=== PATIENT | female | born 1955 | race African-American/Black ===

== ENCOUNTER 2016-06-12 20:54 | Inpatient (IN) ==
[2016-06-12] MEDS ORDERED: *HR* FentaNYL (PF) 100 MCG/2 ML VIAL IVP ONE (21:16)
--- NOTE | 2016-06-12 21:25 | Emergency Department Note ---
Disposition Clinical Impression: Hyperglycemia, Acute kidney injury, Right leg numbness, Right facial numbness, Elevated troponin Chest pain Qualifiers: Chest pain type: precordial pain Qualified Code(s): R07.2 - Precordial pain Disposition: Admitted As Inpatient Condition: Fair General Adult HPI - General Chief complaint: ED Shortness of Breath/Dyspnea Stated complaint: cough chest pain Time Seen by Provider: 06/12/16 21:00 Source: patient Mode of arrival: wheelchair Limitations: no limitations Nursing Notes Reviewed: Yes Vital Signs Reviewed: Yes - History of Present Illness HPI Narrative: 60-year-old female history of hypertension, chronic kidney disease who presents to the ER with multiple complaints of chest pain, shortness of breath, right facial numbness, right lower extremity numbness. Patient reports that she has had the symptoms for the last 2 weeks in duration. She states that she has a sharp chest pain that radiates into her back. She has felt short of breath during the 2 weeks since then. No fevers or coughs at home. No sputum production. She also reports 2 weeks ago that her right face started to feel numb as well as her right foot. Patient was not seen by any hospital at that time. Patient reports that she needs something for pain and that she is allergic to most things. No other complaints. Pt Subjective Complaint: Cough, chest pain, numbness Onset (ago): week(s) (2) Location: chest Radiation: back Pain Severity: severe Pain Scale: 8 Quality: stabbing Consistency: constant Improves with: nothing Worsens with: other (Palpation) Associated symptoms: Reports: chest pain, shortness of breath. Denies: cough, fever/chills, nausea/vomiting Treatments Prior to Arrival: none - Related Data Home Medications Medication Instructions Recorded Confirmed Ibuprofen [Ibuprofen] 800 mg PO TID PRN 06/12/16 06/12/16 Lisinopril [Lisinopril] 40 mg PO BID 06/12/16 06/12/16 NIFEdipine [Nifedipine ER] 60 mg PO DAILY 06/12/16 06/12/16 Zolpidem [Ambien] 10 mg PO HS 06/12/16 06/12/16 Allergies Allergy/AdvReac Type Severity Reaction Status Date / Time codeine AdvReac Itching Verified 06/12/16 20:55 Oxycodone [From Percocet] AdvReac Itching Verified 06/12/16 20:55 propoxyphene [From Darvon] AdvReac Itching Verified 06/12/16 20:55 All systems ED: reviewed and negative except as stated. Constitutional: Denies: fever Cardiovascular: Reports: chest pain Respiratory: Reports: dyspnea. Denies: cough, wheezes Gastrointestinal: Denies: abdominal pain, nausea, vomiting, diarrhea Musculoskeletal: Reports: back pain Neurological: Reports: weakness, numbness. Denies: headache Past Medical History - Past Medical History Attestation: Yes The following information was validated with the patient. Source: patient Medical history: Reports: asthma, COPD, hypertension, kidney stones, other Surgical history: Reports: non-contributory Psychiatric history: Reports: no psych history - Social History Smoking Status: Current every day smoker Smokeless Tobacco Status: No Alcohol use: Reports: none Drug use: Reports: marijuana Physical Exam - General Limitations: no limitations General appearance: alert, in no apparent distress - Head Head exam: atraumatic, normocephalic, normal inspection - Eye Eye exam: Present: normal appearance, EOMI - ENT ENT exam: normal exam - Neck Neck exam: Present: normal inspection - Chest Chest inspection: Present: normal inspection, symmetric chest wall rise, tenderness (This is reproducible on the sternum) - Respiratory Respiratory exam: Present: normal lung sounds bilaterally - Cardiovascular Cardiovascular exam: Present: regular rate, normal rhythm, normal heart sounds - Abdominal Exam Abdominal exam: Present: soft, Non-Tender. Absent: tenderness - Expanded Upper Extremity Exam Shoulder exam: Present: normal inspection, full ROM Arm exam: Present: normal inspection, full ROM Elbow exam: Present: normal inspection, full ROM Forearm/Wrist exam: Present: normal inspection, full ROM Hand exam: Present: normal inspection, full ROM Vascular exam: Normal: capillary refill, radial pulse - Expanded Lower Extremity Exam Hip/Pelvis exam: Present: normal inspection, full ROM Upper leg exam: Present: normal inspection, full ROM Knee exam: Present: normal inspection, full ROM Lower leg exam: Present: normal inspection, full ROM Ankle exam: Present: normal inspection, full ROM Foot/toe exam: Present: normal inspection, full ROM Neurovascular/Tendon exam: Present: sensory deficit (Patient does report paresthesias to the right lower extremity) - Neurological Exam Neurological exam: Present: alert, oriented X3, CN II-XII intact (With the exception of numbness with cranial nerve V testing on the right) - Expanded Neurological Exam Patient oriented to: Present: person, place, time Speech: Present: fluid speech Cranial nerves: EOM function (II, III, IV, ): Normal, facial sensation (V): Abnormal Right, spinal accessory function (XI): Normal, tongue deviation (XII): Normal Motor strength - LUE: 5/5 Motor strength - RUE: 5/5 Motor strength - LLE: 5/5 Motor strength - RLE: 4/5 Sensory exam upper extremity: light touch: Normal Sensory exam lower extremity: light touch: Abnormal Right Coma Scale Eye Opening: Spontaneous Coma Scale Motor Response: Obeys Commands Coma Scale Verbal Response: Oriented Coma Scale Total: 15 - Psychiatric Psychiatric exam: Present: normal affect, normal mood - Skin Skin exam: Present: warm, dry, intact, normal color Course Course Narrative: Patient seen and examined. Vital signs reviewed. We will get an EKG, chest x- ray as well as basic labs. Also obtain a CT scan of the head due to her numbness. - Reevaluation(s) Reevaluation #1: Patient's labs are coming back. Her glucose is over 900. Her creatinine is over 3 with a previous comparison from 2014. I discussed these results with her and we will start IV fluid resuscitation, get her on an insulin drip and admit her to the hospitalist service. Vital Signs Temperature 97.5 F L 06/12/16 20:56 Pulse Rate 97 06/12/16 20:56 Respiratory Rate 22 06/12/16 20:56 Blood Pressure 138/90 06/12/16 20:56 O2 Sat by Pulse Oximetry 96 06/12/16 20:56 Temperature 97.8 F 06/13/16 16:28 Pulse Rate 87 06/13/16 15:00 Respiratory Rate 24 06/13/16 15:00 Blood Pressure 119/87 06/13/16 15:00 O2 Sat by Pulse Oximetry 98 06/13/16 15:00 Oxygen Delivery Oxygen Delivery Room Air Medical Decision Making - MDM Narrative Medical decision making narrative: 60-year-old female presents to the ER due to chest pain, shortness of breath and numbness for [address] shows no acute intracranial abnormality as per radiology read. EKG is sinus rhythm. Patient's glucose is over 900 here with an acute kidney injury with a creatinine of 3. She is not acidotic. Patient given 2 L normal saline here as well as started on an insulin infusion. Patient admitted to the hospital service for further management. - Lab Data Lab results reviewed: Yes I reviewed the patient's lab results. Result diagrams: 06/13/16 02:16 06/13/16 01:58 Lab Results 06/12/16 06/12/16 06/12/16 Range/Units 21:43 21:43 21:43 WBC 19.2 H (4.3-11.1) K/mcL RBC 4.91 (3.82-4.97) M/mcL Hgb 15.1 (11.5-15.4) g/dL Hct 43.6 (35.3-44.9) % MCV 88.8 (83.0-100.0) fL MCH 30.8 (28.0-33.3) pg MCHC 34.6 (31.6-35.5) g/dL RDW 12.9 (11.5-14.5) % Plt Count 271 (140-400) K/mcL MPV 12.6 H (9.4-12.4) fL Immature Gran % 0.7 (0-4) % Seg Neutrophils % 80.6 % Lymphocytes % 10.9 % Monocytes % 7.4 % Eosinophils % 0.1 % Basophils % 0.3 % Neutrophils # 15.4 H (1.6-8.9) K/mcL Lymphocytes # 2.1 (0.6-4.6) K/mcL Monocytes # 1.4 H (0.0-1.3) K/mcL Eosinophils # 0.0 (0.0-0.6) K/mcL Basophils # 0.1 (0.0-0.2) K/mcL VBG pH (7.32-7.42) pH Units VBG pCO2 (41-51) mmHg VBG pO2 (25-40) mmHg VBG HCO3 (21-27) mEq/L Sodium 121 L (136-145) mEq/L Potassium 4.6 H (3.5-4.5) mEq/L Chloride 82 L (98-109) mEq/L Carbon Dioxide 22 (19-29) mEq/L BUN 46 H (7-20) mg/dL Creatinine 3.11 H (0.57-1.11) mg/dL Est GFR ( Amer) 18 L (> 60) Est GFR (Non-Af Amer) 15 L (> 60) BUN/Creatinine Ratio 15 (6-26) Glucose 942 H* (70-99) mg/dL POC Glucose (58-89) Est Mean Plasma Glucose mg/dl Hemoglobin A1c ( - 5.6) % Calculated Osmolality 311 H (280-300) Calcium 10.5 (8.6-10.8) mg/dL Troponin I 0.04 H* (0-0.03) ng/mL B-Natriuretic Peptide (0-100) pg/mL Beta-Hydroxybutyric Acd (0.02-0.27) mmol/L Urine Color (Yellow) Urine Clarity (Clear) Urine pH (5.0-8.0) pH Units Ur Specific Holstein (1.010-1.025) Urine Protein (Neg-Trace) mg/dL Urine Glucose (UA) (Normal) mg/dL Urine Ketones (Negative) mg/dL Urine Blood (Negative) Urine Nitrite (Negative) Urine Bilirubin (Negative) Urine Urobilinogen (Normal) mg/dL Ur Leukocyte Esterase (Negative) Urine Microscopic RBC (0-3) per hpf Urine Microscopic WBC (0-3) per hpf Ur Squamous Epith Cells (None-Few) per lpf Urine Bacteria (None-Few) per hpf Hyaline Casts (None-Few) per lpf Ur Culture Indicated? (NO) 06/12/16 06/12/16 06/12/16 Range/Units 21:43 23:09 23:09 WBC (4.3-11.1) K/mcL RBC (3.82-4.97) M/mcL Hgb (11.5-15.4) g/dL Hct (35.3-44.9) % MCV (83.0-100.0) fL MCH (28.0-33.3) pg MCHC (31.6-35.5) g/dL RDW (11.5-14.5) % Plt Count (140-400) K/mcL MPV (9.4-12.4) fL Immature Gran % (0-4) % Seg Neutrophils % % Lymphocytes % % Monocytes % % Eosinophils % % Basophils % % Neutrophils # (1.6-8.9) K/mcL Lymphocytes # (0.6-4.6) K/mcL Monocytes # (0.0-1.3) K/mcL Eosinophils # (0.0-0.6) K/mcL Basophils # (0.0-0.2) K/mcL VBG pH 7.38 (7.32-7.42) pH Units VBG pCO2 37 L (41-51) mmHg VBG pO2 82 H (25-40) mmHg VBG HCO3 21.9 (21-27) mEq/L Sodium (136-145) mEq/L Potassium (3.5-4.5) mEq/L Chloride (98-109) mEq/L Carbon Dioxide (19-29) mEq/L BUN (7-20) mg/dL Creatinine (0.57-1.11) mg/dL Est GFR ( Amer) (> 60) Est GFR (Non-Af Amer) (> 60) BUN/Creatinine Ratio (6-26) Glucose (70-99) mg/dL POC Glucose (58-89) Est Mean Plasma Glucose mg/dl Hemoglobin A1c ( - 5.6) % Calculated Osmolality (280-300) Calcium (8.6-10.8) mg/dL Troponin I (0-0.03) ng/mL B-Natriuretic Peptide 26 (0-100) pg/mL Beta-Hydroxybutyric Acd > 2.00 H (0.02-0.27) mmol/L Urine Color (Yellow) Urine Clarity (Clear) Urine pH (5.0-8.0) pH Units Ur Specific Holstein (1.010-1.025) Urine Protein (Neg-Trace) mg/dL Urine Glucose (UA) (Normal) mg/dL Urine Ketones (Negative) mg/dL Urine Blood (Negative) Urine Nitrite (Negative) Urine Bilirubin (Negative) Urine Urobilinogen (Normal) mg/dL Ur Leukocyte Esterase (Negative) Urine Microscopic RBC (0-3) per hpf Urine Microscopic WBC (0-3) per hpf Ur Squamous Epith Cells (None-Few) per lpf Urine Bacteria (None-Few) per hpf Hyaline Casts (None-Few) per lpf Ur Culture Indicated? (NO) 06/12/16 06/13/16 06/13/16 Range/Units 23:09 00:08 00:22 WBC (4.3-11.1) K/mcL RBC (3.82-4.97) M/mcL Hgb (11.5-15.4) g/dL Hct (35.3-44.9) % MCV (83.0-100.0) fL MCH (28.0-33.3) pg MCHC (31.6-35.5) g/dL RDW (11.5-14.5) % Plt Count (140-400) K/mcL MPV (9.4-12.4) fL Immature Gran % (0-4) % Seg Neutrophils % % Lymphocytes % % Monocytes % % Eosinophils % % Basophils % % Neutrophils # (1.6-8.9) K/mcL Lymphocytes # (0.6-4.6) K/mcL Monocytes # (0.0-1.3) K/mcL Eosinophils # (0.0-0.6) K/mcL Basophils # (0.0-0.2) K/mcL VBG pH (7.32-7.42) pH Units VBG pCO2 (41-51) mmHg VBG pO2 (25-40) mmHg VBG HCO3 (21-27) mEq/L Sodium (136-145) mEq/L Potassium (3.5-4.5) mEq/L Chloride (98-109) mEq/L Carbon Dioxide (19-29) mEq/L BUN (7-20) mg/dL Creatinine (0.57-1.11) mg/dL Est GFR ( Amer) (> 60) Est GFR (Non-Af Amer) (> 60) BUN/Creatinine Ratio (6-26) Glucose (70-99) mg/dL POC Glucose > 600 H* > 600 H* (58-89) Est Mean Plasma Glucose > 355 mg/dl Hemoglobin A1c >= 14.1 H ( - 5.6) % Calculated Osmolality (280-300) Calcium (8.6-10.8) mg/dL Troponin I (0-0.03) ng/mL B-Natriuretic Peptide (0-100) pg/mL Beta-Hydroxybutyric Acd (0.02-0.27) mmol/L Urine Color (Yellow) Urine Clarity (Clear) Urine pH (5.0-8.0) pH Units Ur Specific [place]stein (1.010-1.025) Urine Protein (Neg-Trace) mg/dL Urine Glucose (UA) (Normal) mg/dL Urine Ketones (Negative) mg/dL Urine Blood (Negative) Urine Nitrite (Negative) Urine Bilirubin (Negative) Urine Urobilinogen (Normal) mg/dL Ur Leukocyte Esterase (Negative) Urine Microscopic RBC (0-3) per hpf Urine Microscopic WBC (0-3) per hpf Ur Squamous Epith Cells (None-Few) per lpf Urine Bacteria (None-Few) per hpf Hyaline Casts (None-Few) per lpf Ur Culture Indicated? (NO) 06/13/16 Range/Units 00:53 WBC (4.3-11.1) K/mcL RBC (3.82-4.97) M/mcL Hgb (11.5-15.4) g/dL Hct (35.3-44.9) % MCV (83.0-100.0) fL MCH (28.0-33.3) pg MCHC (31.6-35.5) g/dL RDW (11.5-14.5) % Plt Count (140-400) K/mcL MPV (9.4-12.4) fL Immature Gran % (0-4) % Seg Neutrophils % % Lymphocytes % % Monocytes % % Eosinophils % % Basophils % % Neutrophils # (1.6-8.9) K/mcL Lymphocytes # (0.6-4.6) K/mcL Monocytes # (0.0-1.3) K/mcL Eosinophils # (0.0-0.6) K/mcL Basophils # (0.0-0.2) K/mcL VBG pH (7.32-7.42) pH Units VBG pCO2 (41-51) mmHg VBG pO2 (25-40) mmHg VBG HCO3 (21-27) mEq/L Sodium (136-145) mEq/L Potassium (3.5-4.5) mEq/L Chloride (98-109) mEq/L Carbon Dioxide (19-29) mEq/L BUN (7-20) mg/dL Creatinine (0.57-1.11) mg/dL Est GFR ( Amer) (> 60) Est GFR (Non-Af Amer) (> 60) BUN/Creatinine Ratio (6-26) Glucose (70-99) mg/dL POC Glucose (58-89) Est Mean Plasma Glucose mg/dl Hemoglobin A1c ( - 5.6) % Calculated Osmolality (280-300) Calcium (8.6-10.8) mg/dL Troponin I (0-0.03) ng/mL B-Natriuretic Peptide (0-100) pg/mL Beta-Hydroxybutyric Acd (0.02-0.27) mmol/L Urine Color Yellow (Yellow) Urine Clarity Clear (Clear) Urine pH 6.0 (5.0-8.0) pH Units Ur Specific Holstein 1.029 H (1.010-1.025) Urine Protein Negative (Neg-Trace) mg/dL Urine Glucose (UA) >=1000 H (Normal) mg/dL Urine Ketones Trace H (Negative) mg/dL Urine Blood Trace H (Negative) Urine Nitrite Negative (Negative) Urine Bilirubin Negative (Negative) Urine Urobilinogen Normal (Normal) mg/dL Ur Leukocyte Esterase Negative (Negative) Urine Microscopic RBC 0-3 (0-3) per hpf Urine Microscopic WBC 0-3 (0-3) per hpf Ur Squamous Epith Cells Many H (None-Few) per lpf Urine Bacteria None Seen (None-Few) per hpf Hyaline Casts None Seen (None-Few) per lpf Ur Culture Indicated? NO (NO) - Radiology Data Radiology results reviewed: Yes I reviewed the patient's radiology results. Chest X-Ray 06/12/16 21:16 IMPRESSION: No acute cardiopulmonary disease. D/ / Jimmie Rae MD / Jimmie Rae MD Interpreting Provider: Jimmie Rae MD Head CT 06/12/16 21:16 IMPRESSION: No acute intracranial abnormality. D/ / Rasheed Uribe MD / Rasheed Uribe MD Interpreting Provider: Rasheed Uribe MD - EKG Data EKG #1 EKG attestation: Yes I reviewed and interpreted this EKG. EKG results narrative: EKG is sinus rhythm with a rate of 99 bpm. Normal axis. MS interval 366. QRS duration [address] elevations or depressions. No acute ischemic findings. S.B.A.R. - S.Amira.Chelo. Situation: Demographics, MOA Background: Presenting Complaint, Relevant PMH, Meds, & Allergies Assessment: Vital Signs, Course and respsone to treatment, Exam Concerns, Patient/Family Expectation, Pertinant Lab Results, Outstanding Labs Recommendation: Barrier(s) to disposition, Recommendation based on pending studies, treatments, or consults S.B.A.R. Report Given to: Dr. Gavin Attestation Statement - Attestation Attestation: I examined this patient and my medical decision-making was reviewed with the MEDICAL CARE ADMINISTRATOR/PA/Advanced Practice Nurse/Resident Physician. I agree with the documented findings, disposition and treatment plan as described except to the extent set forth below.
[2016-06-12 22:05] LABS: Basophils # 0.1 K/mcL (0.0-0.2); Basophils % 0.3 %; Eosinophils % 0.1 %; Hematocrit 43.6 % (35.3-44.9); Hemoglobin 15.1 g/dL (11.5-15.4); Immature Granulocytes % 0.7 % (0-4); Lymphocytes # 2.1 K/mcL (0.6-4.6); Lymphocytes % 10.9 %; Mean Corpuscular HGB Conc 34.6 g/dL (31.6-35.5); Mean Corpuscular Hemoglobin 30.8 pg (28.0-33.3); Mean Corpuscular Volume 88.8 fL (83.0-100.0); Mean Platelet Volume 12.6 fL (9.4-12.4); Monocytes # 1.4 K/mcL (0.0-1.3); Monocytes % 7.4 %; Neutrophils # 15.4 K/mcL (1.6-8.9); Platelet Count 271 K/mcL (140-400); Red Blood Count 4.91 M/mcL (3.82-4.97); Red Cell Distribution Width 12.9 % (11.5-14.5); Segmented Neutrophils % 80.6 %
[2016-06-12 22:18] LABS: Calcium 10.5 mg/dL (8.6-10.8); Potassium 4.6 mEq/L (3.5-4.5)
[2016-06-12] MEDS ORDERED: 0.9 % Sodium Chloride 1,000 ML IVC ONE ×2 (22:40→22:47)
[2016-06-12] MEDS ORDERED: *HR* Dextrose 50 % in Water (Syg) 50 ML SYRINGE IVP PRN (22:41)
[2016-06-12 23:18] LABS: VBG HCO3 21.9 mEq/L (21-27); VBG PH 7.38 pH Units (7.32-7.42)
[2016-06-12] MEDS: Insulin Human Regular 100 UNIT in 0.9 % Sodium Chloride 100 ML IVC SCH (23:29)
[2016-06-13 01:01] LABS: Bilirubin,Urine Negative (Negative); Blood,Urine Trace (Negative); Clarity,Urine Clear (Clear); Color,Urine Yellow (Yellow); Glucose,Urine (UA) >=1000 mg/dL (Normal); Ketones,Urine Trace mg/dL (Negative); Leukocyte Esterase,Urine Negative (Negative); Nitrite,Urine Negative (Negative); Protein,Urine Negative (Neg-Trace); Specific Gravity,Urine 1.029 (1.010-1.025); Urobilinogen,Urine Normal (Normal)
[2016-06-13 01:04] LABS: Bacteria,Urine None Seen per hpf (None-Few); Hyaline Casts,Urine None Seen per lpf (None-Few); RBC,Urine 0-3 per hpf (0-3); Squamous Epithelial Cell,Urine Many per lpf (None-Few); WBC,Urine 0-3 per hpf (0-3)
[2016-06-13 01:28] LABS: Estimated Average Glucose > 355 mg/dl; Hemoglobin A1C >= 14.1 %
[2016-06-13] MEDS: 0.9 % Sodium Chloride 1,000 ML IVC SCH ×3 (01:30→09:55)
[2016-06-13] MEDS ORDERED: *HR* Dextrose 50 % in Water (Syg) 50 ML SYRINGE IVP PRN ×2 (01:37→11:26)
[2016-06-13] MEDS ORDERED: D5% in 0.45% NACL w KCl 20 MEQ/1,000 ML MLS IVC PRN (01:37)
[2016-06-13] MEDS ORDERED: Insulin LISPRO 300 UNITS/3 ML VIAL SQ PRN (01:37)
[2016-06-13] MEDS ORDERED: Naloxone 0.4 MG/ML INJ IVP PRN (01:37)
[2016-06-13] MEDS ORDERED: Insulin Human Regular 100 UNIT in 0.9 % Sodium Chloride 100 ML IVC SCH (01:45)
[2016-06-13] MEDS: Ondansetron 4 MG/2 ML VIAL IVP PRN ×2 (02:26→08:21)
[2016-06-13 04:43] LABS: Basophils # 0.1 K/mcL (0.0-0.2); Basophils % 0.4 %; Eosinophils # 0.1 K/mcL (0.0-0.6); Eosinophils % 0.3 %; Hematocrit 43.2 % (35.3-44.9); Hemoglobin 15.1 g/dL (11.5-15.4); Immature Granulocytes % 0.6 % (0-4); Immature Platelets 18.2 % (1.1-6.1); Lymphocytes # 3.3 K/mcL (0.6-4.6); Lymphocytes % 17.5 %; Mean Corpuscular Hemoglobin 31.1 pg (28.0-33.3); Mean Corpuscular Volume 89.1 fL (83.0-100.0); Mean Platelet Volume 12.2 fL (9.4-12.4); Monocytes # 0.9 K/mcL (0.0-1.3); Monocytes % 4.8 %; Neutrophils # 14.6 K/mcL (1.6-8.9); Platelet Count 240 K/mcL (140-400); Red Blood Count 4.85 M/mcL (3.82-4.97); Red Cell Distribution Width 12.6 % (11.5-14.5); Segmented Neutrophils % 76.4 %
[2016-06-13 04:46] LABS: Albumin 3.7 g/dL (3.5-5.0); Albumin/Globulin Ratio 0.8 (1.1-2.2); Bilirubin,Total 0.6 mg/dL (0.2-1.2); Calcium 10.6 mg/dL (8.6-10.8); Globulin 4.4 g/dL (2.4-3.5); Magnesium 2.3 mg/dL (1.6-2.6); Total Protein 8.1 g/dL (6.0-8.3)
[2016-06-13 05:32] LABS: Platelet Estimate Normal (Normal)
[2016-06-13] MEDS ORDERED: *HR* FentaNYL (PF) 100 MCG/2 ML VIAL IVP ONE (05:34)
[2016-06-13] MEDS: *HR* FentaNYL (PF) 100 MCG/2 ML VIAL IVP PRN ×2 (06:19→11:39)
[2016-06-13 06:57] LABS: Amylase 41 Units/L (25-125); Lipase 43 Units/L (8-78)
[2016-06-13 07:00] LABS: ABG Base Excess -1.8 mEq/L (-2.0 to 3.0); ABG HCO3 23.1 mEQ/L (21-27); ABG Oxygen Saturation 97 % (95-98); ABG PCO2 39 mmHg (35-45); ABG PO2 92 mmHg (85-104); ABG TCO2 24.3 mEq/L (20-26); Blood Gas FiO2 28 %; Blood Gas Liter Flow 2 L/MIN
[2016-06-13 07:01] LABS: ABG PH 7.38 pH Units (7.32-7.45)
[2016-06-13 08:00] LABS: 2009 H1N1 PCR NOT DETECTED (Not Detect); Influenza A PCR Negative (Negative); Influenza B PCR Negative (Negative)
[2016-06-13] MEDS: Nicotine 21 MG PATCH.TD24 TD SCH (08:10)
[2016-06-13] MEDS: *HR* Heparin 5,000 UNIT/ML VIAL SQ SCH ×3 (08:14→23:56)
[2016-06-13] MEDS: Pantoprazole 40 MG VIAL IVP SCH (08:15)
[2016-06-13] MEDS: Insulin Human Regular 100 UNIT in 0.9 % Sodium Chloride 100 ML IVC SCH (08:32)
--- NOTE | 2016-06-13 10:28 | Internal Med Progress Note ---
Date of Encounter: 06/13/16 Time of Encounter: 09:15 - Assessment and plan (1) Hyperglycemic crisis in diabetes mellitus Current Visit: Yes Status: Acute Assessment and plan: HHS with preenting glucose >900 with neurologic symptoms, CVA mimick patient has no neurologic deficits on examAnd reports improvement ABG was unremarkable Head CT /CXR unremarkable It is possible patient is non-compliant with medications, or she is a newly diagnosed diabetic A1C >14 Will give lemevir and stop insulin drip after an hr Lispro ACHS sliding scale Continue to monitor FS ADA diet bingo attendant to see patient (2) COPD (chronic obstructive pulmonary disease) Current Visit: Yes Status: Chronic Assessment and plan: Not in exacerbation Duonebs prn Qualifiers: COPD type: unspecified COPD Qualified Code(s): J44.9 - Chronic obstructive pulmonary disease, unspecified (3) Acute on chronic renal failure Current Visit: Yes Status: Acute Assessment and plan: Multifactorial, dehydration from HHS, patient on Lisinopril and NSAIDs at home with a history of CKD USS kidneys has been ordered, will follow Continue IVF hydration Avoid nephrotoxins (4) Chest pain Current Visit: Yes Status: Acute Assessment and plan: non-specific EKG is non-ischemic Slight troponin elevation, may be from LONNIE on CKD Continue to monitor closely Follow ECHO Qualifiers: Chest pain type: precordial pain Qualified Code(s): R07.2 - Precordial pain (5) Elevated troponin Current Visit: Yes Status: Acute Assessment and plan: As above (6) Hypertension Current Visit: Yes Status: Chronic Assessment and plan: Controlled Will resume home meds -CCB, prn Qualifiers: Hypertension type: essential hypertension Qualified Code(s): I10 - Essential (primary) hypertension (7) Leukocytosis Current Visit: Yes Status: Acute Assessment and plan: Possibly from dehydration and stress There is no obvious source of infection, patient is afebrile Will continue to monitor No indication for antibiotics at this time Qualifiers: Leukocytosis type: unspecified Qualified Code(s): D72.829 - Elevated white blood cell count, unspecified (8) Tobacco abuse Current Visit: Yes Status: Chronic Assessment and plan: Counselling done for cessation NRT - Subjective Interval history: 60-year-old female on admission for HHS and LONNIE on CKD She has a PMH of Asthma, CKD, ? stage, Tobacco abuse She presented to the ER with complaints of chest pain shortness of breath, right facial numbness and right lower extremity numbness. Work up in the ER revealed leukocytosis A1c greater than 14 leukocytosis with left shift and daily once daily individual with normal pH and glucose of 952 and adynamic troponin elevation. Lipase, amylase, urinalysis, unremarkable. Lipid panel reveals triglyceridemia. CT was unremarkable. Chest x-ray no acute processes. She is seen at bedside, able to communicate, in no obvious distress FS have been between 160-180, one done at bedside during review was 120 - Constitutional Vitals: Temp Pulse Resp BP Pulse Ox 98.4 F 69 14 126/62 99 06/13/16 07:47 06/13/16 09:00 06/13/16 09:00 06/13/16 09:00 06/13/16 09:00 General appearance: Present: A&O X 3, pleasant, no acute distress - Head Head exam: Present: atraumatic, normocephalic - Eye Eye exam: Present: PERRL, conjuntiva pink, sclera anicteric Pupils: Present: PERRL - Neck Neck exam general surgery: Present: supple, trachea midline. Absent: lymphadenopathy - Respiratory Respiratory exam: Present: CTAB. Absent: accessory muscle use, rales, rhonchi, wheezes - Cardiovascular Cardiovascular exam: Present: RRR, +S1, +S2. Absent: diastolic murmur, gallop, rubs, systolic murmur - GI/Abdominal GI/Abdominal exam: Present: normal bowel sounds, soft, no peritoneal signs. Absent: distended, tenderness - Extremities Exam Extremities exam: Present: warm, radial pulses palpable and symetrical. Absent : calf tenderness, cyanotic, pedal edema - Neurological Exam Neurological exam: Present: CN II-XII intact, oriented X3, no focal deficits. Absent: pronater drift, facial droop, speech deficit - Skin Skin exam: Present: dry, intact Internal Medicine: Result - Labs CBC & Chem 7: 06/13/16 02:16 06/13/16 01:58 Labs: Short CBC 06/13/16 Range/Units 02:16 WBC 19.1 H (4.3-11.1) K/mcL Hgb 15.1 (11.5-15.4) g/dL Hct 43.2 (35.3-44.9) % Plt Count 240 (140-400) K/mcL Neutrophils # 14.6 H (1.6-8.9) K/mcL BMP 06/13/16 01:58 Sodium 130 L D Potassium 4.0 Chloride 96 L Carbon Dioxide 17 L BUN 45 H Creatinine 2.73 H Glucose 425 H Calcium 10.6 Cardiac Enzymes 06/13/16 06/13/16 Range/Units 01:58 09:45 Troponin I 0.05 H* 0.05 H* (0-0.03) ng/mL Liver Function 06/13/16 Range/Units 01:58 Total Bilirubin 0.6 (0.2-1.2) mg/dL AST 18 (5-34) Units/L ALT 28 (0-55) Units/L Alkaline Phosphatase 141 H (38-126) Units/L Albumin 3.7 (3.5-5.0) g/dL - ABG Interpretation ABG results: ABG ABG pH 7.38 pH Units (7.32-7.45) 06/13/16 02:39 ABG pCO2 39 mmHg (35-45) 06/13/16 02:39 ABG pO2 92 mmHg (85-104) 06/13/16 02:39 ABG O2 Saturation 97 % (95-98) 06/13/16 02:39 Consult Discharge Plan - Plan Referrals: NO,PCP [Primary Care Provider] -
[2016-06-13] MEDS ORDERED: Insulin DETEMIR 100 UNIT/ML X5UNITS SQ ONE (10:30)
[2016-06-13] MEDS ORDERED: D5% in Water 1,000 ML IV PRN (11:26)
[2016-06-13] MEDS ORDERED: Dextrose Gel 15 GM PO PRN ×2 (11:26)
[2016-06-13] MEDS: Insulin LISPRO 300 UNITS/3 ML VIAL SQ SCH ×3 (11:55→21:36)
--- NOTE | 2016-06-13 12:16 | Electrocardiograph Report ---
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
--- NOTE | 2016-06-13 14:20 | Electrocardiograph Report ---
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
[2016-06-13] MEDS ORDERED: *HR* OxyCODONE Immed Rel 5 MG TABLET PO PRN (15:19)
[2016-06-13] MEDS ORDERED: Acetaminophen 325 MG TABLET PO PRN (15:20)
[2016-06-13] MEDS ORDERED: GI Cocktail 40 ML EACH PO ONE (15:21)
[2016-06-13] MEDS ORDERED: Insulin DETEMIR 100 UNIT/ML X5UNITS SQ SCH (21:00)
[2016-06-13] MEDS: traMADol 50 MG TABLET PO PRN (22:16)
[2016-06-14] MEDS: Ondansetron 4 MG/2 ML VIAL IVP PRN (04:16)
[2016-06-14 04:32] LABS: Basophils # 0.1 K/mcL (0.0-0.2); Basophils % 0.4 %; Eosinophils # 0.1 K/mcL (0.0-0.6); Eosinophils % 0.6 %; Hematocrit 41.3 % (35.3-44.9); Hemoglobin 14.3 g/dL (11.5-15.4); Immature Granulocytes % 0.4 % (0-4); Lymphocytes # 3.4 K/mcL (0.6-4.6); Lymphocytes % 20.2 %; Mean Corpuscular HGB Conc 34.6 g/dL (31.6-35.5); Mean Corpuscular Hemoglobin 31.6 pg (28.0-33.3); Mean Corpuscular Volume 91.4 fL (83.0-100.0); Mean Platelet Volume 12.7 fL (9.4-12.4); Monocytes # 1.4 K/mcL (0.0-1.3); Monocytes % 8.5 %; Neutrophils # 11.8 K/mcL (1.6-8.9); Platelet Count 216 K/mcL (140-400); Red Blood Count 4.52 M/mcL (3.82-4.97); Red Cell Distribution Width 13.2 % (11.5-14.5); Segmented Neutrophils % 69.9 %
[2016-06-14 04:50] LABS: Calcium 9.9 mg/dL (8.6-10.8)
[2016-06-14] MEDS: *HR* Heparin 5,000 UNIT/ML VIAL SQ SCH ×2 (08:26→16:53)
[2016-06-14] MEDS: Pantoprazole 40 MG VIAL IVP SCH (08:26)
[2016-06-14] MEDS: Nicotine 21 MG PATCH.TD24 TD SCH (08:26)
[2016-06-14] MEDS ORDERED: Insulin DETEMIR 100 UNIT/ML X5UNITS SQ SCH (08:42)
[2016-06-14] MEDS: Insulin LISPRO 300 UNITS/3 ML VIAL SQ SCH ×6 (08:44→20:58)
[2016-06-14] MEDS: amLODIPine 5 MG TABLET PO SCH (10:14)
--- NOTE | 2016-06-14 10:45 | Internal Med Progress Note ---
Date of Encounter: 06/14/16 Time of Encounter: 09:55 - Assessment and plan (1) Hyperglycemic crisis in diabetes mellitus Current Visit: Yes Status: Acute Assessment and plan: [facility] with presenting glucose >900 with neurologic symptoms, CVA mimick patient no longer has neurologic deficits on exam And reports improvement ABG was unremarkable Head CT /CXR unremarkable She denies prior diagnosis of DM, she is a newly diagnosed diabetic A1C >14 Start prandial and continue basal insulin and corrective scale She is educated on her diagnosis ADA diet inclusion paraeducator to see patient (2) COPD (chronic obstructive pulmonary disease) Current Visit: Yes Status: Chronic Assessment and plan: Not in exacerbation Duonebs prn Qualifiers: COPD type: unspecified COPD Qualified Code(s): J44.9 - Chronic obstructive pulmonary disease, unspecified (3) Acute on chronic renal failure Current Visit: Yes Status: Acute Assessment and plan: Multifactorial, dehydration from [facility], patient on Lisinopril and NSAIDs at home with a history of CKD USS kidneys has been ordered, pending reports D/C IVF and encourage liberal fluid intake D/C geller catheter and ambulate patient Avoid nephrotoxins (4) Chest pain Current Visit: Yes Status: Acute Assessment and plan: non-specific EKG is non-ischemic Slight troponin elevation, may be from LONNIE on CKD ECHO done on admission reported today shows EF 60-65%, Normal LV chamber size and function, moderate LVH, mild LVDD, mild Pulmonary HTN, RVSP 43, no significant valvular dysfunction Patient is asymptomatic now Qualifiers: Chest pain type: precordial pain Qualified Code(s): R07.2 - Precordial pain (5) Elevated troponin Current Visit: Yes Status: Acute Assessment and plan: As above (6) Hypertension Current Visit: Yes Status: Chronic Assessment and plan: Now uncontrolled Start Amlodipne 10mg po daily Will add Labetalol if needed Qualifiers: Hypertension type: essential hypertension Qualified Code(s): I10 - Essential (primary) hypertension (7) Leukocytosis Current Visit: Yes Status: Acute Assessment and plan: Possibly from dehydration and stress Improving There is no obvious source of infection, patient is afebrile Will continue to monitor No indication for antibiotics at this time Qualifiers: Leukocytosis type: unspecified Qualified Code(s): D72.829 - Elevated white blood cell count, unspecified (8) Tobacco abuse Current Visit: Yes Status: Chronic Assessment and plan: Counselling done for cessation NRT - Subjective Interval history: 60-year-old female on admission for HHS and LONNIE on CKD She has a PMH of Asthma, CKD, ? stage, Tobacco abuse She presented to the ER with complaints of chest pain shortness of breath, right facial numbness and right lower extremity numbness. Work up in the ER revealed leukocytosis A1c greater than 14 leukocytosis with left shift and daily once daily individual with normal pH and glucose of 952 and adynamic troponin elevation. Lipase, amylase, urinalysis, unremarkable. Lipid panel reveals triglyceridemia. CT was unremarkable. Chest x-ray no acute processes. She has been bridged to basal and corrective dose insulin She is seen at bedside today, has no new complains Abdominal pain has improved She is educated again about her new diagnosis of DM Will adjust insulin today to target FS 140-180 - Constitutional Vitals: Temp Pulse Resp BP Pulse Ox 97.4 F L 72 13 169/91 97 06/14/16 07:51 06/14/16 08:25 06/14/16 07:51 06/14/16 07:51 06/14/16 07:51 General appearance: Present: A&O X 3, pleasant, no acute distress, obese - Head Head exam: Present: atraumatic, normocephalic - Eye Eye exam: Present: PERRL, conjuntiva pink, sclera anicteric Pupils: Present: PERRL - Neck Neck exam general surgery: Present: supple, trachea midline. Absent: lymphadenopathy - Respiratory Respiratory exam: Present: CTAB. Absent: accessory muscle use, rales, rhonchi, wheezes - Cardiovascular Cardiovascular exam: Present: RRR, +S1, +S2. Absent: diastolic murmur, gallop, rubs, systolic murmur - GI/Abdominal GI/Abdominal exam: Present: normal bowel sounds, soft, no peritoneal signs. Absent: distended, tenderness - Extremities Exam Extremities exam: Present: warm, radial pulses palpable and symetrical. Absent : calf tenderness, cyanotic, pedal edema - Neurological Exam Neurological exam: Present: CN II-XII intact, oriented X3, no focal deficits. Absent: pronater drift, facial droop, speech deficit - Skin Skin exam: Present: dry, intact Internal Medicine: Result - Labs CBC & Chem 7: 06/14/16 03:56 06/14/16 03:56 Labs: Short CBC 06/14/16 Range/Units 03:56 WBC 16.9 H (4.3-11.1) K/mcL Hgb 14.3 (11.5-15.4) g/dL Hct 41.3 (35.3-44.9) % Plt Count 216 (140-400) K/mcL Neutrophils # 11.8 H (1.6-8.9) K/mcL BMP 06/14/16 03:56 Sodium 132 L Potassium 4.0 Chloride 99 Carbon Dioxide 21 BUN 37 H Creatinine 1.82 H Glucose 319 H Calcium 9.9 - ABG Interpretation ABG results: ABG ABG pH 7.38 pH Units (7.32-7.45) 06/13/16 02:39 ABG pCO2 39 mmHg (35-45) 06/13/16 02:39 ABG pO2 92 mmHg (85-104) 06/13/16 02:39 ABG O2 Saturation 97 % (95-98) 06/13/16 02:39 - Impressions Impressions Abdomen CT 06/13/16 15:18 IMPRESSION: 1. No acute abdominal process. 2. Hepatic steatosis and bilateral adrenal hyperplasia. 3. Nonobstructing right nephrolithiasis. D/ / 06/13/2016 16:11:33 Bud Escalona MD / [email or web address] Interpreting Provider: Bud Escalona MD Consult Discharge Plan - Plan Referrals: Stefan Klein MD [Non-Partnered Physician] - 06/25/16 3:00 pm NO,PCP [Primary Care Provider] -
--- NOTE | 2016-06-14 11:15 | ECHO - Doppler Report ---
Echocardiogram Name: Vivek Cheng Date of Study: 06/13/2016 Date: 1955 Ht: 64.0 in Medical Record#: [id number] Age: 60 Wt: 231.0 lb Gender: Female BSA: 2.08 Order #: [id number] Location: [facility] Room #: 2N5 Reading Physician: Rasheed Feldman DO, LUISANA, MAX FERNANDES [employer] Tech: Yumiko Trejo Ordering Physician: Mejia Key MD Primary Physician: None Indications: Troponin elevation Impressions: LVEF 60-65%. Normal LV chamber size and function. Moderate concentric left ventricular hypertrophy. Mild left ventricular diastolic dysfunction. Normal right ventricular structure and function. Mild pulmonary hypertension. Estimated RVSP is 43 mmHg. No significant valvular dysfunction. Left Ventricular Wall Motion: Rest Echo Findings All wall segments showed normal motion. Findings: Study Quality * Technically adequate exam. ECG Findings * Normal sinus rhythm. Left Ventricle * LVEF 60-65%. * Normal LV chamber size and function. * Moderate concentric left ventricular hypertrophy. * Mild left ventricular diastolic dysfunction. Right Ventricle * Normal right ventricular structure and function. Left Atrium * Normal left atrial size. Right Atrium * Normal right atrial size. Interatrial Septum * Interatrial septum not well evaluated. Aortic Valve * Aortic valve not well visualized. * No aortic stenosis. * No aortic regurgitation. Mitral Valve * Normal mitral valve structure and function. * No mitral regurgitation. * No mitral stenosis. Tricuspid Valve * Normal tricuspid valve structure and function. * Trace tricuspid regurgitation. * Mild pulmonary hypertension. * Estimated RVSP is 43 mmHg. * Estimated RA pressure is 5 mmHg. Pulmonic Valve * Normal pulmonic valve structure and function. * No pulmonic regurgitation. Aorta * Normally sized aortic root. Pericardium * The pericardium appears normal. IVC * Normal IVC dimensions and inspiratory collapse. Pulmonary Artery * Normal visualized portions of the main pulmonary artery. History Hypertension Diabetes History of Smoking Years 20 Packs 1 09/04/2012 a Previous Echo was performed. Measurements: BP: 144/ 97 2D Normal Values RVIDd: 3.50 cm <2.7 cm IVSd: 1.60 cm 0.6 - 1.0 cm LVIDd: 3.60 cm 3.7 - 5.6 cm LVPWd: 1.60 cm 0.6 - 1.1 cm LVIDs: 1.60 cm 1.5 - 3.6 cm AO: 2.80 cm < 4.0 cm LA: 3.90 cm 2.0 - 4.0cm %FS: 55.60 cm >25 % LVOT Diam: 1.40 cm LA volume: 28 Mitral Valve Peak E:.64 m/sec Peak A:1.06 m/sec E/A Ratio:0.6 Peak E' Lat Dashawn:6.34 cm/s Peak E' Med Dashawn:4.58 cm/s E/E' Lat Ratio:10.2 E/E' Med Ratio:14.1 Tricuspid Valve TV Regurg Peak Grad: 38.00mmHg TV Regurg Peak Dashawn: 3.09m/sec Updated by Rasheed Feldman DO, FACStew, MAX FERNANDES on 06/14/2016 11:08:22 AM electronically signed on 06/14/2016 11:08:47 AM with status of Final Wall Motion Vora: 1=Normal, 2=Hypokinesis, 3=Akinesis, 4=Dyskinesis, 5=Aneurysmal, 6=Hyperkinetic, X=Not Visualized (Blank)=Missing
[2016-06-14] MEDS: traMADol 50 MG TABLET PO PRN (19:21)
[2016-06-14] MEDS: *HR* Morphine 2 MG/ML SYRINGE IVP PRN (21:06)
[2016-06-15] MEDS: *HR* Heparin 5,000 UNIT/ML VIAL SQ SCH ×2 (00:22→08:29)
[2016-06-15] MEDS: traMADol 50 MG TABLET PO PRN ×2 (00:24→08:29)
[2016-06-15 06:26] LABS: Basophils # 0.1 K/mcL (0.0-0.2); Basophils % 0.5 %; Eosinophils # 0.2 K/mcL (0.0-0.6); Eosinophils % 1.1 %; Hematocrit 40.4 % (35.3-44.9); Hemoglobin 13.8 g/dL (11.5-15.4); Immature Granulocytes % 0.4 % (0-4); Lymphocytes # 3.5 K/mcL (0.6-4.6); Lymphocytes % 23.7 %; Mean Corpuscular HGB Conc 34.2 g/dL (31.6-35.5); Mean Corpuscular Hemoglobin 31.5 pg (28.0-33.3); Mean Corpuscular Volume 92.2 fL (83.0-100.0); Mean Platelet Volume 12.8 fL (9.4-12.4); Monocytes # 1.4 K/mcL (0.0-1.3); Monocytes % 9.3 %; Neutrophils # 9.5 K/mcL (1.6-8.9); Platelet Count 210 K/mcL (140-400); Red Blood Count 4.38 M/mcL (3.82-4.97); Red Cell Distribution Width 13.1 % (11.5-14.5)
[2016-06-15 06:40] LABS: Calcium 9.6 mg/dL (8.6-10.8); Potassium 3.7 mEq/L (3.5-4.5)
[2016-06-15 07:25] VITALS: BP 146/86
[2016-06-15] MEDS: Ondansetron 4 MG/2 ML VIAL IVP PRN (08:29)
[2016-06-15] MEDS: Nicotine 21 MG PATCH.TD24 TD SCH (08:29)
[2016-06-15] MEDS: Pantoprazole 40 MG VIAL IVP SCH (08:29)
[2016-06-15] MEDS: amLODIPine 5 MG TABLET PO SCH (08:30)
[2016-06-15] MEDS: Insulin LISPRO 300 UNITS/3 ML VIAL SQ SCH ×4 (08:30→12:12)
[2016-06-15] MEDS: *HR* Morphine 2 MG/ML SYRINGE IVP PRN (08:30)
--- NOTE | 2016-06-15 09:40 | Discharge Summary ---
Date of Encounter: 06/15/16 Time of Encounter: 09:40 - Discharge Diagnosis (1) Hyperglycemic crisis in diabetes mellitus Priority: Primary Status: Acute (2) COPD (chronic obstructive pulmonary disease) Priority: Secondary Status: Chronic Qualifiers: COPD type: unspecified COPD Qualified Code(s): J44.9 - Chronic obstructive pulmonary disease, unspecified (3) Acute on chronic renal failure Priority: Primary Status: Acute (4) Chest pain Priority: Primary Status: Resolved Qualifiers: Chest pain type: precordial pain Qualified Code(s): R07.2 - Precordial pain (5) Elevated troponin Priority: Primary Status: Acute (6) Hypertension Priority: Secondary Status: Chronic Qualifiers: Hypertension type: essential hypertension Qualified Code(s): I10 - Essential (primary) hypertension (7) Leukocytosis Priority: Secondary Status: Acute Qualifiers: Leukocytosis type: unspecified Qualified Code(s): D72.829 - Elevated white blood cell count, unspecified (8) Tobacco abuse Priority: Secondary Status: Chronic - Discharge Medications Prescriptions: Amoxicillin/Clavulanate [Augmentin] 875 mg PO BIDWM #10 tablet Blood Sugar Diagnostic [Glucose Test Strip] 1 each ACHS #120 strip Insulin Glargine [Lantus] 20 unit SQ HS #2 vial Insulin LISPRO [HumaLOG] 8 units SQ TIDWM #2 vial Lancets 1 each MC ACHS #120 each Lisinopril [Zestril] 20 mg PO DAILY #30 tablet Nicotine Patch [Nicoderm] 21 mg TD DAILY #30 patch.td24 Nystatin POWDER [Nystop] 1 appl TP TID #30 gm Syring-Needl,Disp,Insul,0.3 ml [Insulin Syringe] 1 each MC QID #120 disp.syrin Home Medications: NIFEdipine [Nifedipine ER] 60 mg PO DAILY 06/12/16 [History] Zolpidem [Ambien] 10 mg PO HS 06/12/16 [History] Amoxicillin/Clavulanate [Augmentin] 875 mg PO BIDWM #10 tablet 06/15/16 [Rx] Blood Sugar Diagnostic [Glucose Test Strip] 1 each MC ACHS #120 strip 06/15/16 [ Rx] Insulin Glargine [Lantus] 20 unit SQ HS #2 vial 06/15/16 [Rx] Insulin LISPRO [HumaLOG] 8 units SQ TIDWM #2 vial 06/15/16 [Rx] Lancets 1 each MC ACHS #120 each 06/15/16 [Rx] Lisinopril [Zestril] 20 mg PO DAILY #30 tablet 06/15/16 [Rx] Nicotine Patch [Nicoderm] 21 mg TD DAILY #30 patch.td24 06/15/16 [Rx] Nystatin POWDER [Nystop] 1 appl TP TID #30 gm 06/15/16 [Rx] Syring-Needl,Disp,Insul,0.3 ml [Insulin Syringe] 1 each MC QID #120 disp.syrin 06/15/16 [Rx] Allergies/Adverse Reactions: Allergies codeine Adverse Reaction (Verified 06/12/16 20:55) Itching Oxycodone [From Percocet] Adverse Reaction (Verified 06/12/16 20:55) Itching propoxyphene [From Darvon] Adverse Reaction (Verified 06/12/16 20:55) Itching Procedures/tests Complete & Pending: Procedures Performed prior 72 hours Category Date Time Status CT abdomen wo no iv no oral [CT] Stat Cat Scan 06/13/16 15:18 Completed Date of admission: 06/13/16 01:50 Primary care physician: PCP NO Consults: 06/13/16 05:24 Consult to Diabetes Education Coordinator [CONS] Routine Comment: Discharging clinician: Matti Krause Anticipated date of discharge: 06/15/16 - Patient Status Disposition: Home, Self-Care Condition: Fair Functional capacity at discharge: independent ambulation Overall status at discharge: patient is progressing back to baseline - Discharge Instructions Follow Up With: Stefan Klein MD [Non-Partnered Physician] - 06/25/16 3:00 pm NO,PCP [Primary Care Provider] - - Diet and Activity Activity: resume usual activities as tolerated Diet: diabetic diet, low salt diet Interval History: See below Hospital course: Ms. Cheng is a 60 year old female with a past medical history of hypertension, COPD, tobacco abuse, and chronic kidney disease unknown stage. The patient was admitted on June 12. Symptoms suggestive of neurological complaints. On admission she had complained of chest pain right facial numbness and right lower extremity numbness. She did endorse polyuria and polydipsia. She denied any other complaints. Workup revealed leukocytosis, with left shift, glucose of 952, slightly elevated troponins. Lipase, amylase, urinalysis were unremarkable. Lipid panel showed triglyceridemia. Head CT was unremarkable for acute processes. Chest x-ray showed no acute processes. A1c was greater than 14. Patient's chemistry revealed a creatinine of 3.11, baseline unknown here in 2013 was 1.21. Physical exam on admission as per admitting hospitalist showed no neurologic deficits. Patient was admitted for management of hyperglycemic hyperosmolar syndrome, hyperglycemic crisis, acute kidney injury on chronic kidney disease, elevated troponins, and leukocytosis. She was started on insulin drip with rapid correction blood glucose, potassium, and sodium. She was bridged to subcutaneous insulin disease, prandial, and sliding scale. Troponins remained at 0.05, patient did not have chest pain. BNP was 26. Patient is not a known diabetic and she has a new diagnosis of uncontrolled diabetes mellitus. carcass washer was consulted and educated the patient at the bedside. Patient's LONNIE on CKD is multifactorial secondary to dehydration from HHS, medications as patient was noted to be taking 40mg of lisinopril twice a day at home, and ibuprofen [id number] for pain. Abdomen CT head shows nephrolithiasis nonobstructing, hepatic steatosis and bilateral adrenal hyperplasia. Her kidney function has improved and is almost at baseline. Patient is educated to stop using NSAIDs at home. She will follow up with her PCP for referral to nephrology. Patient's chest pain was possibly secondary to demand ischemia on EKG was unremarkable for troponin elevation was adynamic, and echocardiogram. Left ventricular ejection fraction 60-65% mild left ventricular diastolic dysfunction , mild pulmonary hypertension and normal valvular dysfunctions. There is no segment motion abnormality. Patient is a smoker and she was started on nicotine patch in the hospital. I spent 3 minutes every day, sitting her about tobacco cessation. She is discharged home on the nicotine patch, she is educated not to smoke while on the patch, she will follow up with PCP for tapering. Patient had leukocytosis which was from dehydration and improved with hydration Patient with very poor hygeine and gluteal fold fungal and vulval infection. She was started on Augmentin po and will be discharged home on same She is educated at the bedside about her hospital course, her diagnosis of DM and signs and symptoms of hypoglycemia. She verbalized understanding She states she will call her PCP for an early appointment to follow up in 1-2 weeks. Time spent discussing smoking cessation with patient: 3 to 10 minutes (3 minutes spent on tobacco cessation consultation.) - Time Spent with Patient Total time spent providing and/or coordinating discharge services: Greater than 30 minutes (45 minutes spent with patient evaluation: Chart review , medication reconciliation, patient education, documentation and prescription.) - Constitutional Vitals: Temp Pulse Resp BP Pulse Ox 97.8 F 79 16 146/86 98 06/15/16 07:18 06/15/16 08:30 06/15/16 07:18 06/15/16 07:18 06/15/16 07:18 General appearance: Present: A&O X 3, pleasant, no acute distress, obese - Head Head exam: Present: atraumatic, normocephalic - Eye Eye exam: Present: PERRL, conjuntiva pink, sclera anicteric Pupils: Present: PERRL - Neck Neck exam general surgery: Present: supple, trachea midline. Absent: lymphadenopathy - Respiratory Respiratory exam: Present: CTAB. Absent: accessory muscle use, rales, rhonchi, wheezes - Cardiovascular Cardiovascular exam: Present: RRR, +S1, +S2. Absent: diastolic murmur, gallop, rubs, systolic murmur - GI/Abdominal GI/Abdominal exam: Present: normal bowel sounds, soft, no peritoneal signs. Absent: distended, tenderness - Additional comments: Vulvovaginitis, foul smelling vulval area with some excoriation R>L. Intergluteal fold with 2 furuncles <1mm, not draining, poor hygiene overall - Extremities Exam Extremities exam: Present: warm, radial pulses palpable and symetrical. Absent : calf tenderness, cyanotic, pedal edema - Neurological Exam Neurological exam: Present: alert, CN II-XII intact, oriented X3, no focal deficits. Absent: pronater drift, facial droop, speech deficit - Skin Skin exam: Present: dry, intact
[2016-06-15] MEDS ORDERED: Nystatin POWDER 30 GM BOTTLE TP SCH (10:45)
== END 2016-06-15 14:00 | disposition home or self-care (01) | DRG 638 ==
LOC: EMEROO 20:54 → ICNU 20:54 → SUATTDRO 06-13 01:50 → 2NNU 06-13 18:47
PROVIDERS: ADMIT Internal Medicine; ATTEND Internal Medicine

== ENCOUNTER 2016-10-12 07:15 | Inpatient (IN) ==
[2016-10-12] MEDS ORDERED: *HR* Labetalol 100 MG/20 ML MDV IVP PRN (07:36)
[2016-10-12] MEDS ORDERED: *HR* FentaNYL (PF) 100 MCG/2 ML VIAL IVP ONE (07:42)
[2016-10-12] MEDS ORDERED: *HR* HYDROmorphone (PF) 1 MG/ML SYRINGE IVP ONE ×2 (07:43→08:46)
[2016-10-12] MEDS ORDERED: *HR* Promethazine 25 MG/ML VIAL IVP ONE ×3 (08:12→20:17)
--- NOTE | 2016-10-12 08:22 | Emergency Department Note ---
Disposition Clinical Impression: Chest pain, Hypertension Disposition: Admitted As Inpatient Condition: Good Referrals: NO,PCP [Primary Care Provider] - Forms: ED Satisfaction Letter Time of Disposition: 10:34 General Adult HPI - General Chief complaint: ED Chest Pain Stated complaint: shaking/Chest Pain Time Seen by Provider: 10/12/16 07:27 Source: patient Limitations: no limitations Nursing Notes Reviewed: Yes Vital Signs Reviewed: Yes - History of Present Illness HPI Narrative: 60-year-old female presenting to the emergency department for headache, chest pain, and hypertension. Her daughter is in the room and states this occurs approximately every 3 months. These symptoms are exactly like every other hypertensive episode that she had. She states she is having bilateral frontal pain from her headache. Otherwise she is in no pain. She describes the pain as a throbbing ache. She did not try anything at home to fix the blood pressure with a headache. Pain Scale: 9 - Related Data Home Medications Medication Instructions Recorded Confirmed NIFEdipine [Nifedipine ER] 60 mg PO DAILY 06/12/16 06/12/16 Zolpidem [Ambien] 10 mg PO HS 06/12/16 06/12/16 Previous Rx's Medication Instructions Recorded Amoxicillin/Clavulanate [Augmentin] 875 mg PO BIDWM #10 tablet 06/15/16 Blood Sugar Diagnostic [Glucose 1 each ACHS #120 strip 06/15/16 Test Strip] Insulin Glargine [Lantus] 20 unit SQ HS #2 vial 06/15/16 Insulin LISPRO [HumaLOG] 8 units SQ TIDWM #2 vial 06/15/16 Lancets 1 each ACHS #120 each 06/15/16 Lisinopril [Zestril] 20 mg PO DAILY #30 tablet 06/15/16 Nicotine Patch [Nicoderm] 21 mg TD DAILY #30 patch.td24 06/15/16 Nystatin POWDER [Nystop] 1 appl TP TID #30 gm 06/15/16 Syring-Needl,Disp,Insul,0.3 ml 1 each MC QID #120 disp.syrin 06/15/16 [Insulin Syringe] Allergies Allergy/AdvReac Type Severity Reaction Status Date / Time codeine AdvReac Itching Verified 06/29/16 01:00 Oxycodone [From Percocet] AdvReac Itching Verified 06/29/16 01:00 propoxyphene [From Darvon] AdvReac Itching Verified 06/29/16 01:00 Constitutional: Denies: fever, chills, weakness Eyes: Denies: eye discharge ENT ED: Reports: as per HPI Cardiovascular: Reports: chest pain. Denies: palpitations, dyspnea on exertion Respiratory: Denies: cough, dyspnea, wheezes Gastrointestinal: Reports: nausea. Denies: abdominal pain, vomiting Genitourinary: Reports: as per HPI Musculoskeletal: Reports: as per HPI Neurological: Reports: headache. Denies: weakness, numbness, paresthesias Endocrine: Reports: as per HPI Hematological/Lymphatic: Reports: as per HPI Allergic/Immunologic: Reports: as per HPI Past Medical History - Past Medical History Medical history: Reports: asthma, COPD, diabetes, hypertension, kidney stones, other Surgical history: Reports: non-contributory Psychiatric history: Reports: no psych history - Social History Smoking Status: Current every day smoker Smokeless Tobacco Status: No Alcohol use: Reports: none Drug use: Reports: marijuana Physical Exam - General Limitations: no limitations General appearance: alert, in distress - Head Head exam: atraumatic, normocephalic - Eye Eye exam: Present: normal appearance - Neck Neck exam: Present: normal inspection - Chest Chest inspection: Present: normal inspection, symmetric chest wall rise. Absent : tenderness - Respiratory Respiratory exam: Present: normal lung sounds bilaterally. Absent: respiratory distress, wheezes - Cardiovascular Cardiovascular exam: Present: regular rate, normal rhythm - Abdominal Exam Abdominal exam: Present: soft, Non-Tender. Absent: distention, guarding, rebound - Extremities Exam Extremities exam: Present: normal inspection, full ROM - Neurological Exam Neurological exam: Present: alert, oriented X3 - Skin Skin exam: Present: warm, dry, intact Course Course Narrative: 60-year-old female presenting to the emergency department for headache and hypertension. According to the patient and her daughter in the room this occurs approximately every 3 months. With a normally do is reduce her blood pressure and give her pain medicine. We will do a full workup to exclude any and organ damage from the increase in blood pressure. - Reevaluation(s) Reevaluation #1: All blood work and imaging have been returned and are within normal limits. Patient is in less pain now. The the irregular nature of the chest pain we called the hospitalist healthcare liaison Dr. Irizarry who agreed to accept the patient. Time: 10:33 Vital Signs Temperature 98.1 F 10/12/16 07:19 Pulse Rate 62 10/12/16 07:19 Respiratory Rate 18 10/12/16 07:19 Blood Pressure 226/141 10/12/16 07:19 O2 Sat by Pulse Oximetry 99 10/12/16 07:19 Temperature 98.1 F 10/12/16 07:19 Pulse Rate 62 10/12/16 09:01 Respiratory Rate 18 10/12/16 09:01 Blood Pressure 209/94 10/12/16 09:01 O2 Sat by Pulse Oximetry 98 10/12/16 09:01 Oxygen Delivery Oxygen Delivery Room Air Medical Decision Making - Medical Records Medical records reviewed: Yes I reviewed the patient's medical records. - Lab Data Lab results reviewed: Yes I reviewed the patient's lab results. Result diagrams: 10/12/16 08:05 10/12/16 08:05 Lab Results 10/12/16 10/12/16 10/12/16 Range/Units 08:05 08:05 08:05 WBC 16.0 H (4.3-11.1) K/mcL RBC 4.58 (3.82-4.97) M/mcL Hgb 14.1 (11.5-15.4) g/dL Hct 42.4 (35.3-44.9) % MCV 92.6 (83.0-100.0) fL MCH 30.8 (28.0-33.3) pg MCHC 33.3 (31.6-35.5) g/dL RDW 14.4 (11.5-14.5) % Plt Count 254 (140-400) K/mcL MPV 11.6 (9.4-12.4) fL Immature Gran % 0.4 (0-4) % Seg Neutrophils % 75.1 % Lymphocytes % 16.6 % Monocytes % 6.1 % Eosinophils % 1.4 % Basophils % 0.4 % Neutrophils # 12.0 H (1.6-8.9) K/mcL Lymphocytes # 2.7 (0.6-4.6) K/mcL Monocytes # 1.0 (0.0-1.3) K/mcL Eosinophils # 0.2 (0.0-0.6) K/mcL Basophils # 0.1 (0.0-0.2) K/mcL Immature Plt Fraction 7.9 H (1.1-6.1) % PT 10.7 (9.4-12.1) Seconds INR 1.0 APTT 30.6 (26.0-36.0) Seconds Sodium 140 (136-145) mEq/L Potassium 3.9 (3.5-4.5) mEq/L Chloride 107 (98-109) mEq/L Carbon Dioxide 26 (19-29) mEq/L BUN 23 H (7-20) mg/dL Creatinine 1.08 (0.57-1.11) mg/dL Est GFR ( Amer) > 60 (> 60) Est GFR (Non-Af Amer) 52 L (> 60) BUN/Creatinine Ratio 21 (6-26) Glucose 161 H (70-99) mg/dL Calculated Osmolality 297 (280-300) Calcium 11.0 H (8.6-10.8) mg/dL Total Bilirubin (0.2-1.2) mg/dL Direct Bilirubin (0.0-0.5) mg/dL Indirect Bilirubin (0.0-1.2) mg/dL AST (5-34) Units/L ALT (0-55) Units/L Alkaline Phosphatase (38-126) Units/L Creatine Kinase (29-168) Units/L Troponin I (0-0.03) ng/mL B-Natriuretic Peptide (0-100) pg/mL Serum Total Protein (6.0-8.3) g/dL Albumin (3.5-5.0) g/dL Globulin (2.4-3.5) g/dL Albumin/Globulin Ratio (1.1-2.2) Urine Color (Yellow) Urine Clarity (Clear) Urine pH (5.0-8.0) pH Units Ur Specific [place] (1.010-1.025) Urine Protein (Neg-Trace) mg/dL Urine Glucose (UA) (Normal) mg/dL Urine Ketones (Negative) mg/dL Urine Blood (Negative) Urine Nitrite (Negative) Urine Bilirubin (Negative) Urine Urobilinogen (Normal) mg/dL Ur Leukocyte Esterase (Negative) Urine Microscopic RBC (0-3) per hpf Urine Microscopic WBC (0-3) per hpf Ur Squamous Epith Cells (None-Few) per lpf Urine Bacteria (None-Few) per hpf Ur Culture Indicated? (NO) 10/12/16 10/12/16 10/12/16 Range/Units 08:05 08:05 08:05 WBC (4.3-11.1) K/mcL RBC (3.82-4.97) M/mcL Hgb (11.5-15.4) g/dL Hct (35.3-44.9) % MCV (83.0-100.0) fL MCH (28.0-33.3) pg MCHC (31.6-35.5) g/dL RDW (11.5-14.5) % Plt Count (140-400) K/mcL MPV (9.4-12.4) fL Immature Gran % (0-4) % Seg Neutrophils % % Lymphocytes % % Monocytes % % Eosinophils % % Basophils % % Neutrophils # (1.6-8.9) K/mcL Lymphocytes # (0.6-4.6) K/mcL Monocytes # (0.0-1.3) K/mcL Eosinophils # (0.0-0.6) K/mcL Basophils # (0.0-0.2) K/mcL Immature Plt Fraction (1.1-6.1) % PT (9.4-12.1) Seconds INR APTT (26.0-36.0) Seconds Sodium (136-145) mEq/L Potassium (3.5-4.5) mEq/L Chloride (98-109) mEq/L Carbon Dioxide (19-29) mEq/L BUN (7-20) mg/dL Creatinine (0.57-1.11) mg/dL Est GFR ( Amer) (> 60) Est GFR (Non-Af Amer) (> 60) BUN/Creatinine Ratio (6-26) Glucose (70-99) mg/dL Calculated Osmolality (280-300) Calcium (8.6-10.8) mg/dL Total Bilirubin 0.6 (0.2-1.2) mg/dL Direct Bilirubin 0.2 (0.0-0.5) mg/dL Indirect Bilirubin 0.4 (0.0-1.2) mg/dL AST 16 (5-34) Units/L ALT 18 (0-55) Units/L Alkaline Phosphatase 110 (38-126) Units/L Creatine Kinase 147 (29-168) Units/L Troponin I 0.01 (0-0.03) ng/mL B-Natriuretic Peptide (0-100) pg/mL Serum Total Protein 7.8 (6.0-8.3) g/dL Albumin 3.9 (3.5-5.0) g/dL Globulin 3.9 H (2.4-3.5) g/dL Albumin/Globulin Ratio 1.0 L (1.1-2.2) Urine Color (Yellow) Urine Clarity (Clear) Urine pH (5.0-8.0) pH Units Ur Specific [place] (1.010-1.025) Urine Protein (Neg-Trace) mg/dL Urine Glucose (UA) (Normal) mg/dL Urine Ketones (Negative) mg/dL Urine Blood (Negative) Urine Nitrite (Negative) Urine Bilirubin (Negative) Urine Urobilinogen (Normal) mg/dL Ur Leukocyte Esterase (Negative) Urine Microscopic RBC (0-3) per hpf Urine Microscopic WBC (0-3) per hpf Ur Squamous Epith Cells (None-Few) per lpf Urine Bacteria (None-Few) per hpf Ur Culture Indicated? (NO) 10/12/16 10/12/16 Range/Units 08:05 09:41 WBC (4.3-11.1) K/mcL RBC (3.82-4.97) M/mcL Hgb (11.5-15.4) g/dL Hct (35.3-44.9) % MCV (83.0-100.0) fL MCH (28.0-33.3) pg MCHC (31.6-35.5) g/dL RDW (11.5-14.5) % Plt Count (140-400) K/mcL MPV (9.4-12.4) fL Immature Gran % (0-4) % Seg Neutrophils % % Lymphocytes % % Monocytes % % Eosinophils % % Basophils % % Neutrophils # (1.6-8.9) K/mcL Lymphocytes # (0.6-4.6) K/mcL Monocytes # (0.0-1.3) K/mcL Eosinophils # (0.0-0.6) K/mcL Basophils # (0.0-0.2) K/mcL Immature Plt Fraction (1.1-6.1) % PT (9.4-12.1) Seconds INR APTT (26.0-36.0) Seconds Sodium (136-145) mEq/L Potassium (3.5-4.5) mEq/L Chloride (98-109) mEq/L Carbon Dioxide (19-29) mEq/L BUN (7-20) mg/dL Creatinine (0.57-1.11) mg/dL Est GFR ( Amer) (> 60) Est GFR (Non-Af Amer) (> 60) BUN/Creatinine Ratio (6-26) Glucose (70-99) mg/dL Calculated Osmolality (280-300) Calcium (8.6-10.8) mg/dL Total Bilirubin (0.2-1.2) mg/dL Direct Bilirubin (0.0-0.5) mg/dL Indirect Bilirubin (0.0-1.2) mg/dL AST (5-34) Units/L ALT (0-55) Units/L Alkaline Phosphatase (38-126) Units/L Creatine Kinase (29-168) Units/L Troponin I (0-0.03) ng/mL B-Natriuretic Peptide 55 (0-100) pg/mL Serum Total Protein (6.0-8.3) g/dL Albumin (3.5-5.0) g/dL Globulin (2.4-3.5) g/dL Albumin/Globulin Ratio (1.1-2.2) Urine Color Yellow (Yellow) Urine Clarity Cloudy A (Clear) Urine pH 6.0 (5.0-8.0) pH Units Ur Specific [place] 1.023 (1.010-1.025) Urine Protein 30 H (Neg-Trace) mg/dL Urine Glucose (UA) Normal (Normal) mg/dL Urine Ketones Negative (Negative) mg/dL Urine Blood Small H (Negative) Urine Nitrite Negative (Negative) Urine Bilirubin Negative (Negative) Urine Urobilinogen Normal (Normal) mg/dL Ur Leukocyte Esterase Moderate H (Negative) Urine Microscopic RBC 3-5 H (0-3) per hpf Urine Microscopic WBC 5-15 H (0-3) per hpf Ur Squamous Epith Cells Many H (None-Few) per lpf Urine Bacteria Many H (None-Few) per hpf Ur Culture Indicated? YES A (NO) - Radiology Data Radiology results reviewed: Yes I reviewed the patient's radiology results. - EKG Data EKG #1 EKG attestation: Yes I reviewed and interpreted this EKG. EKG results narrative: Rate of 65 bpm. NSR. MA of 127 ms QRS of 83 ms QTC of [address] segment changes. Attestation Statement - Attestation Attestation: Patient was seen with resident physician. I reviewed the history, physical, assessment and plan, and agree with the findings. I also personally evaluated this patient and had [id number] time with this patient. 60-year-old female presents to emergency department with chief complaint of chest pain and I pretension. Patient has had multiple episodes of chest pain and hypertension the last year. She notes the chest pain started couple days ago as middle chest radiates straight through to her back. She also has hypertension which comes and goes despite the use of antihypertensive medications. He states the last time she had something similar was in May was found to be in DKA at that time. She has not had any fevers or chills no other complaints at this time. On examination vital signs hypertension mild tachycardia normal pulse ox. ENT is unremarkable. Heart and lungs normal. Abdomen is soft and nontender. Extremities unremarkable. Neurologically the patient is intact. ED course we will do workup for chest pain and likely admit for chest pain and hypertension. Patient was also given medication to control her blood pressure and pain medication for her chest pain. EKG does not show acute ischemic changes. Initial troponin was negative. Hospitalist was notified as to the need for admission. Agree with the resident physician assessment and plan.
[2016-10-12 08:27] LABS: Basophils # 0.1 K/mcL (0.0-0.2); Basophils % 0.4 %; Eosinophils # 0.2 K/mcL (0.0-0.6); Eosinophils % 1.4 %; Hematocrit 42.4 % (35.3-44.9); Hemoglobin 14.1 g/dL (11.5-15.4); Immature Granulocytes % 0.4 % (0-4); Immature Platelets 7.9 % (1.1-6.1); Lymphocytes # 2.7 K/mcL (0.6-4.6); Lymphocytes % 16.6 %; Mean Corpuscular HGB Conc 33.3 g/dL (31.6-35.5); Mean Corpuscular Hemoglobin 30.8 pg (28.0-33.3); Mean Corpuscular Volume 92.6 fL (83.0-100.0); Mean Platelet Volume 11.6 fL (9.4-12.4); Monocytes % 6.1 %; Platelet Count 254 K/mcL (140-400); Red Blood Count 4.58 M/mcL (3.82-4.97); Red Cell Distribution Width 14.4 % (11.5-14.5); Segmented Neutrophils % 75.1 %
[2016-10-12 08:35] LABS: Prothrombin Time 10.7 Seconds (9.4-12.1)
[2016-10-12 08:37] LABS: Activated Partial Thrombo Time 30.6 Seconds (26.0-36.0)
[2016-10-12 08:40] LABS: BUN/Creatinine Ratio 21 (6-26); Blood Urea Nitrogen 23 mg/dL (7-20); Carbon Dioxide 26 mEq/L (19-29); Chloride 107 mEq/L (98-109); Glucose 161 mg/dL (70-99); Osmolality,Calculated 297 (280-300); Potassium 3.9 mEq/L (3.5-4.5); Sodium 140 mEq/L (136-145); eGFR For African Americans > 60 (> 60); eGFR For Non-African Americans 52 (> 60)
[2016-10-12 08:42] LABS: Albumin 3.9 g/dL (3.5-5.0); Bilirubin,Direct 0.2 mg/dL (0.0-0.5); Bilirubin,Indirect 0.4 mg/dL (0.0-1.2); Bilirubin,Total 0.6 mg/dL (0.2-1.2); Globulin 3.9 g/dL (2.4-3.5); Total Protein 7.8 g/dL (6.0-8.3)
[2016-10-12 09:48] LABS: Bilirubin,Urine Negative (Negative); Blood,Urine Small (Negative); Clarity,Urine Cloudy (Clear); Color,Urine Yellow (Yellow); Glucose,Urine (UA) Normal (Normal); Ketones,Urine Negative (Negative); Leukocyte Esterase,Urine Moderate (Negative); Nitrite,Urine Negative (Negative); Protein,Urine 30 mg/dL (Neg-Trace); Specific Gravity,Urine 1.023 (1.010-1.025); Urobilinogen,Urine Normal (Normal)
[2016-10-12 10:03] LABS: Bacteria,Urine Many per hpf (None-Few); Squamous Epithelial Cell,Urine Many per lpf (None-Few)
[2016-10-12] MEDS: niCARdipine 40 MG/200 ML MLS IVC SCH ×2 (11:10→17:30)
[2016-10-12] MEDS ORDERED: NIFEdipine 10 MG CAPSULE PO SCH (12:45)
[2016-10-12] MEDS ORDERED: Acetaminophen 325 MG TABLET PO PRN (12:59)
[2016-10-12] MEDS ORDERED: *HR* Morphine 2 MG/ML SYRINGE IVP PRN (12:59)
[2016-10-12] MEDS ORDERED: Naloxone 0.4 MG/ML INJ IVP PRN (12:59)
[2016-10-12] MEDS ORDERED: Ondansetron 4 MG/2 ML VIAL IVP PRN (12:59)
[2016-10-12] MEDS: Gabapentin 300 MG CAPSULE PO SCH ×2 (13:10→19:32)
[2016-10-12] MEDS: Metoprolol XL (24 HR) Succ 50 MG TAB.ER.24H PO SCH (13:10)
[2016-10-12] MEDS: Aspirin 81 MG TAB.CHEW PO SCH (13:11)
[2016-10-12] MEDS: NIFEdipine 10 MG CAPSULE PO SCH ×2 (14:45→20:36)
--- NOTE | 2016-10-12 14:53 | Internal Med History&Physical ---
Date of Encounter: 10/12/16 Time of Encounter: 12:00 Assessment and Plan (1) Headache Current visit: Yes Status: Acute Headache is likely due to uncontrolled hypertension. Check CT head to rule out intracranial bleed. Continue to treat underlying cause. Supportive care with when necessary Tylenol. Qualifiers: Headache type: unspecified Headache chronicity pattern: acute headache Intractability: not intractable Qualified Code(s): R51 - Headache (2) Hypertensive urgency Current visit: Yes Status: Acute High suspicion for medical noncompliance. Patient's blood pressure did not respond to IV labetalol pushes in the emergency room. Started on IV Nicardipine drip, titrate to maintain blood pressure below 160/100. We will resume home medications-lisinopril, hydrochlorothiazide, Procardia and metoprolol with first doses now. Will increase Procardia to every 8 hourly dosing. Low-sodium diet. High risk for complications. (3) Diabetes mellitus Current visit: Yes Status: Chronic Patient was recently diagnosed with diabetes during her last hospitalization in May 2016 and has been started on insulin due to hemoglobin A1c greater than 14 %. Continue Accu-Chek blood glucose monitoring with basal bolus insulin regimen. Diabetic diet. 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 Patient reports having been able to quit smoking for a while after her last hospitalization but went back to smoking due to family stress. Continue nicotine transdermal patch. (5) Chronic kidney disease Current visit: Yes Status: Chronic Serum creatinine noted to be normal. Continue to monitor. Qualifiers: Chronic kidney disease stage: stage 3 (moderate) Qualified Code(s): N18.3 - Chronic kidney disease, stage 3 (moderate) Internal Medicine - H&P: HPI Chief complaint: Headache Admitted From: Emergency Dept Plans for Post Hospital Care: Home History of present illness: Ms. Cheng is a 60 year old female with history of hypertension and diabetes, presents with complaints of severe headache. Patient reports having had similar complaints in the past associated with uncontrolled hypertension. She reports left retro-orbital pain that has now spread to involve her entire head associated with some blurred vision in her left eye and nausea. No chest pain, shortness of breath, palpitations, dizziness or syncope. No focal weakness or paresthesias. She reports compliance to her blood pressure medications at home. Past Med Surg Social Fam HX - Past Medical History Medical history: asthma, diabetes, hypertension, kidney stones, other Psychiatric history: no psych history - Past Surgical History Surgical History: non-contributory, cholecystectomy, hysterectomy, other ( Placement of a spinal stimulator) - Social History Smoking Status: Current every day smoker Packs per day: 1 Smokeless Tobacco Status: No Alcohol use: occasionally Drug use: marijuana Current living situation: Home, With Family Activity Level: Independent ambulation Recent Out of Country Travel Within the Last 8 Weeks: No - Family History Mother Hx Family Endocrine Disorder: Yes (Diabetes) Hx Family Neurologic Disorders: Yes (CVA) Father Hx Family Cancer: Yes (Pancreatic cancer) Grandmother Hx Family Cancer: Yes (Breast cancer) Internal Medicine - H&P: Meds Zolpidem [Ambien] 10 mg PO HS 06/12/16 [History] Insulin LISPRO [HumaLOG] 8 units SQ TIDWM #2 vial 06/15/16 [Rx] Albuterol Sulfate [Proair Hfa] 2 puff IH Q4-6H PRN 10/12/16 [History] Aspirin [Lo-Dose Aspirin EC] 81 mg PO DAILY 10/12/16 [History] Atorvastatin Calcium [Lipitor] 20 mg PO DAILY 10/12/16 [History] Gabapentin [Neurontin] 300 mg PO QAM 10/12/16 [History] Gabapentin [Neurontin] 600 mg PO HS 10/12/16 [History] Insulin Glargine [Lantus] 32 unit SQ HS 10/12/16 [History] Lisinopril/Hydrochlorothiazide [Zestoretic 20-25 mg Tablet] 1 tab PO DAILY 10/12 [History] Metoprolol Succinate 100 mg PO DAILY 10/12/16 [History] NIFEdipine [Nifedipine] 10 mg PO DAILY 10/12/16 [History] Allergies codeine Adverse Reaction (Verified 06/29/16 01:00) Itching Oxycodone [From Percocet] Adverse Reaction (Verified 06/29/16 01:00) Itching propoxyphene [From Darvon] Adverse Reaction (Verified 06/29/16 01:00) Itching All Systems PM: A 10-system review of systems was performed and is negative for pertinent findings except as documented above in the HPI. - Constitutional Constitutional: no chills, no fever(s), no night sweats - EENT Eyes: blurry vision Ears: no ear discharge, no ear pain, no tinnitus Nose, mouth and throat: no dysphagia, no nasal discharge, no neck pain, no sore throat - Cardiovascular Cardiovascular ROS IM: no chest pain, no diaphoresis, no dyspnea, no lightheadedness, no palpitations, no syncope - Respiratory Respiratory: no cough, no dyspnea, no wheezing, no excessive phlegm production - Gastrointestinal Gastrointestinal: nausea - Genitourinary Genitourinary: no change in urinary stream, no dysuria, no flank pain, no hematuria - Musculoskeletal Musculoskeletal ROS IM: no numbness, no tingling - Integumentary Integumentary IM: no rash, no unusual bruising - Neurological Neurological ROS: headache(s), no confusion, no convulsions, no focal weakness, no numbness, no tingling, no tremor(s) - Hematologic/Lymphatic Hematologic/Lymphatic: no easy bruising - Constitutional Vitals: Temp Pulse Resp BP Pulse Ox 98.2 F 62 18 195/93 95 10/12/16 12:00 10/12/16 12:00 10/12/16 12:00 10/12/16 12:00 10/12/16 12:00 General appearance: Present: A&O X 3, answers questions appropriately - Respiratory Respiratory exam: Present: CTAB (Coarse breath sounds bilaterally). Absent: accessory muscle use, rales, rhonchi, wheezes - Cardiovascular Cardiovascular exam: Present: RRR, +S1 (Loud S1), +S2, systolic murmur. Absent : diastolic murmur, gallop, rubs - GI/Abdominal GI/Abdominal exam: Present: normal bowel sounds, soft (Mild suprapubic tenderness), no peritoneal signs. Absent: distended, tenderness - Extremities Exam Extremities exam: Present: full ROM, warm, radial pulses palpable and symetrical. Absent: calf tenderness, cyanotic, pedal edema - Neurological Exam Neurological exam: Present: CN II-XII intact, oriented X3, no focal deficits. Absent: pronater drift, facial droop, speech deficit - Skin Skin exam: Present: dry, intact Internal Med - H&P Results - Labs CBC & Chem 7: 10/12/16 08:05 10/12/16 08:05 Labs: Cardiac Enzymes 10/12/16 Range/Units 13:23 Troponin I 0.00 (0-0.03) ng/mL - EKG Data -: EKG Interpreted by Myself EKG shows normal: sinus rhythm (Artifacts noted) Rate: normal
[2016-10-12] MEDS ORDERED: D5% in Water 1,000 ML IVC PRN (15:09)
[2016-10-12] MEDS ORDERED: *HR* Dextrose 50 % in Water (Syg) 50 ML SYRINGE IVP PRN (15:09)
[2016-10-12] MEDS ORDERED: Dextrose Gel 15 GM PO PRN ×2 (15:09)
[2016-10-12] MEDS: *HR* Heparin 5,000 UNIT/ML VIAL SQ SCH (17:24)
[2016-10-12] MEDS: Nicotine 21 MG PATCH.TD24 TD SCH (17:25)
[2016-10-12] MEDS: Insulin LISPRO 300 UNITS/3 ML VIAL SQ SCH ×2 (17:25→20:40)
[2016-10-12] MEDS ORDERED: Insulin DETEMIR 100 UNIT/ML X5UNITS SQ SCH (21:00)
[2016-10-13 01:01] LABS: Basophils # 0.1 K/mcL (0.0-0.2); Basophils % 0.5 %; Eosinophils # 0.3 K/mcL (0.0-0.6); Eosinophils % 2.4 %; Hematocrit 41.9 % (35.3-44.9); Hemoglobin 13.5 g/dL (11.5-15.4); Immature Granulocytes % 0.2 % (0-4); Lymphocytes # 3.5 K/mcL (0.6-4.6); Lymphocytes % 28.5 %; Mean Corpuscular HGB Conc 32.2 g/dL (31.6-35.5); Mean Corpuscular Hemoglobin 30.3 pg (28.0-33.3); Mean Corpuscular Volume 94.2 fL (83.0-100.0); Mean Platelet Volume 11.6 fL (9.4-12.4); Monocytes # 1.1 K/mcL (0.0-1.3); Monocytes % 8.9 %; Neutrophils # 7.2 K/mcL (1.6-8.9); Platelet Count 192 K/mcL (140-400); Red Blood Count 4.45 M/mcL (3.82-4.97); Red Cell Distribution Width 14.3 % (11.5-14.5); Segmented Neutrophils % 59.5 %
[2016-10-13 01:17] LABS: BUN/Creatinine Ratio 22 (6-26); Blood Urea Nitrogen 22 mg/dL (7-20); Carbon Dioxide 24 mEq/L (19-29); Chloride 108 mEq/L (98-109); Chol/HDL Ratio 4.6 (0-4.9); Cholesterol 161 mg/dL (< 200); Glucose 103 mg/dL (70-99); HDL Cholesterol 35 mg/dL (40-59); LDL Cholesterol,Calculated 98 mg/dL (0-99); Magnesium 2.1 mg/dL (1.6-2.6); Osmolality,Calculated 294 (280-300); Potassium 3.9 mEq/L (3.5-4.5); Sodium 140 mEq/L (136-145); Triglycerides 141 mg/dL (< 150); eGFR For African Americans > 60 (> 60); eGFR For Non-African Americans 56 (> 60)
[2016-10-13] MEDS: *HR* Heparin 5,000 UNIT/ML VIAL SQ SCH ×3 (01:52→16:40)
[2016-10-13] MEDS: niCARdipine 40 MG/200 ML MLS IVC SCH (04:38)
[2016-10-13] MEDS: Acetaminophen/Butalbital/CaffeineTABLET PO PRN (04:53)
[2016-10-13] MEDS: NIFEdipine 10 MG CAPSULE PO SCH (04:54)
[2016-10-13] MEDS: Aspirin 81 MG TAB.CHEW PO SCH (09:52)
[2016-10-13] MEDS: Metoprolol XL (24 HR) Succ 50 MG TAB.ER.24H PO SCH (09:53)
[2016-10-13] MEDS: Gabapentin 300 MG CAPSULE PO SCH ×2 (09:53→20:34)
[2016-10-13] MEDS: Nicotine 21 MG PATCH.TD24 TD SCH (09:54)
[2016-10-13] MEDS ORDERED: NIFEdipine XL (24 HR) 60 MG TAB.ER.24 PO SCH (10:00)
[2016-10-13] MEDS ORDERED: Insulin DETEMIR 100 UNIT/ML X5UNITS SQ SCH (10:00)
[2016-10-13] MEDS: traMADol 50 MG TABLET PO SCH ×3 (10:09→20:34)
[2016-10-13] MEDS: Insulin LISPRO 300 UNITS/3 ML VIAL SQ SCH ×3 (11:25→20:43)
[2016-10-13] MEDS: hydroCHLOROthiazide 25 MG TABLET PO SCH (11:32)
[2016-10-13] MEDS: Lisinopril 20 MG TABLET PO SCH (11:32)
[2016-10-13] MEDS: NIFEdipine XL (24 HR) 30 MG TAB.ER.24 PO SCH (11:32)
--- NOTE | 2016-10-13 16:54 | Internal Med Progress Note ---
Date of Encounter: 10/13/16 Time of Encounter: 10:00 - Assessment and plan (1) Hypertensive urgency Current Visit: Yes Status: Acute Assessment and plan: Patient presented with chief complaint of headache likely secondary to uncontrolled hypertension. BP on admission was 226/141. CT of the head showed no acute intracranial process. Patient was started on Cardene drip with good control of her blood pressure. Add oral medications including nifedipine, lisinopril, metoprolol, hydrochlorothiazide and furosemide and stop Cardene drip. Close monitor. (2) Hyperglycemia due to type 2 diabetes mellitus Current Visit: Yes Status: Acute Assessment and plan: Glucose levers are better controlled. Fasting glucose is 103. Stop Levemir. Continue insulin sliding scale and diabetic diet. Qualifiers: Diabetes mellitus shelter insulin use: with shelter use Qualified Code( s): E11.65 - Type 2 diabetes mellitus with hyperglycemia; Z79.4 - longterm ( current) use of insulin (3) CKD (chronic kidney disease) stage 3, GFR 30-59 ml/min Current Visit: No Status: Chronic Assessment and plan: At baseline. Close monitor. Avoid nephrotoxic agents as possible. (4) Tobacco abuse Current Visit: No Status: Chronic Assessment and plan: Counseled to quit. - Subjective Interval history: Patient reports chronic back pain. She states she has a nerve implant but it is not working appropriately. She also reports mild headaches. No chest pain. No shortness of breath. - Constitutional Vitals: Temp Pulse Resp BP Pulse Ox 98.0 F 60 18 146/84 95 10/13/16 16:26 10/13/16 16:26 10/13/16 16:26 10/13/16 16:26 10/13/16 16:26 General appearance: Present: cooperative, A&O X 3, pleasant, no acute distress, answers questions appropriately - Neck Neck exam general surgery: Present: supple, trachea midline. Absent: lymphadenopathy - Respiratory Respiratory exam: Present: CTAB - Cardiovascular Cardiovascular exam: Present: RRR - GI/Abdominal GI/Abdominal exam: Present: normal bowel sounds, soft. Absent: distended, tenderness - Extremities Exam Extremities exam: Present: pedal edema (1+ lower extremity edema.) - Back Exam Back exam: Present: muscle spasm, paraspinal tenderness - Neurological Exam Neurological exam: Present: alert, oriented X3, no focal deficits, strengths equal and symetr throughout. Absent: facial droop, speech deficit - Skin Skin exam: Absent: rash Internal Medicine: Result - Labs CBC & Chem 7: 10/13/16 00:48 10/13/16 00:48 Labs: Short CBC 10/13/16 Range/Units 00:48 WBC 12.1 H (4.3-11.1) K/mcL Hgb 13.5 (11.5-15.4) g/dL Hct 41.9 (35.3-44.9) % Plt Count 192 (140-400) K/mcL Neutrophils # 7.2 (1.6-8.9) K/mcL BMP 10/13/16 00:48 Sodium 140 Potassium 3.9 Chloride 108 Carbon Dioxide 24 BUN 22 H Creatinine 1.01 Glucose 103 H Calcium 11.0 H Cardiac Enzymes 10/12/16 10/13/16 Range/Units 20:08 00:48 Troponin I 0.02 0.01 (0-0.03) ng/mL - ABG Interpretation ABG results: PT/INR, D-dimer PT 10.7 Seconds (9.4-12.1) 10/12/16 08:05 Consult Discharge Plan - Plan Referrals: NO,PCP [Primary Care Provider] -
[2016-10-14] MEDS: *HR* Heparin 5,000 UNIT/ML VIAL SQ SCH ×2 (00:11→08:17)
[2016-10-14] MEDS: Acetaminophen/Butalbital/CaffeineTABLET PO PRN ×2 (04:18→10:51)
[2016-10-14 04:38] LABS: Basophils # 0.1 K/mcL (0.0-0.2); Basophils % 0.5 %; Eosinophils # 0.3 K/mcL (0.0-0.6); Eosinophils % 2.6 %; Hematocrit 44.9 % (35.3-44.9); Hemoglobin 14.2 g/dL (11.5-15.4); Immature Granulocytes % 0.3 % (0-4); Lymphocytes # 2.9 K/mcL (0.6-4.6); Lymphocytes % 24.4 %; Mean Corpuscular HGB Conc 31.6 g/dL (31.6-35.5); Mean Corpuscular Hemoglobin 29.6 pg (28.0-33.3); Mean Corpuscular Volume 93.7 fL (83.0-100.0); Mean Platelet Volume 11.3 fL (9.4-12.4); Monocytes # 1.1 K/mcL (0.0-1.3); Neutrophils # 7.5 K/mcL (1.6-8.9); Platelet Count 252 K/mcL (140-400); Red Blood Count 4.79 M/mcL (3.82-4.97); Red Cell Distribution Width 14.2 % (11.5-14.5); Segmented Neutrophils % 63.2 %
[2016-10-14 04:51] LABS: Calcium 11.2 mg/dL (8.6-10.8); Magnesium 2.1 mg/dL (1.6-2.6); Potassium 4.6 mEq/L (3.5-4.5)
[2016-10-14] MEDS: Metoprolol XL (24 HR) Succ 50 MG TAB.ER.24H PO SCH (08:16)
[2016-10-14] MEDS: NIFEdipine XL (24 HR) 30 MG TAB.ER.24 PO SCH (08:16)
[2016-10-14] MEDS: Gabapentin 300 MG CAPSULE PO SCH (08:17)
[2016-10-14] MEDS: Lisinopril 20 MG TABLET PO SCH (08:17)
[2016-10-14] MEDS: Aspirin 81 MG TAB.CHEW PO SCH (08:17)
[2016-10-14] MEDS: hydroCHLOROthiazide 25 MG TABLET PO SCH (08:17)
[2016-10-14] MEDS: traMADol 50 MG TABLET PO SCH (08:17)
[2016-10-14] MEDS: Nicotine 21 MG PATCH.TD24 TD SCH (08:18)
[2016-10-14] MEDS ORDERED: Furosemide 40 MG/4 ML VIAL IVP ONE (08:57)
[2016-10-14] MEDS: Insulin LISPRO 300 UNITS/3 ML VIAL SQ SCH ×2 (09:54→13:16)
--- NOTE | 2016-10-14 11:18 | Discharge Summary ---
Date of Encounter: 10/14/16 Time of Encounter: 11:13 - Discharge Diagnosis (1) Hypertensive urgency Priority: Primary Status: Acute (2) Acute diastolic heart failure Priority: Primary Status: Acute (3) Hyperglycemia due to type 2 diabetes mellitus Priority: Primary Status: Acute Qualifiers: Diabetes mellitus fci insulin use: with terminologist use Qualified Code( s): E11.65 - Type 2 diabetes mellitus with hyperglycemia; Z79.4 - terminologist ( current) use of insulin (4) CKD (chronic kidney disease) stage 3, GFR 30-59 ml/min Priority: Secondary Status: Chronic (5) Tobacco abuse Priority: Secondary Status: Chronic - Discharge Medications Prescriptions: RX: Furosemide [Lasix] 40 mg PO BID #60 tab RX: Lisinopril [Zestril] 40 mg PO DAILY #60 tab RX: Magnesium Oxide [Mag-Ox] 400 mg PO BID #60 tablet RX: Nicotine Patch [Nicoderm] 21 mg TD DAILY #30 RX: NIFEdipine XL (24 HR) [Procardia XL] 60 mg PO DAILY #60 Home Medications: RX: Zolpidem [Ambien] 10 mg PO HS 06/12/16 [History] RX: Insulin LISPRO [HumaLOG] 8 units SQ TIDWM #2 vial 06/15/16 [Rx] RX: Albuterol Sulfate [Proair Hfa] 2 puff IH Q4-6H PRN 10/12/16 [History] RX: Aspirin [Lo-Dose Aspirin EC] 81 mg PO DAILY 10/12/16 [History] RX: Atorvastatin Calcium [Lipitor] 20 mg PO DAILY 10/12/16 [History] RX: Gabapentin [Neurontin] 300 mg PO QAM 10/12/16 [History] RX: Gabapentin [Neurontin] 600 mg PO HS 10/12/16 [History] RX: Metoprolol Succinate 100 mg PO DAILY 10/12/16 [History] RX: Tramadol HCl [Ultram] 50 mg PO TID 10/13/16 [History] RX: Furosemide [Lasix] 40 mg PO BID #60 tab 10/14/16 [Rx] RX: Lisinopril [Zestril] 40 mg PO DAILY #60 tab 10/14/16 [Rx] RX: Magnesium Oxide [Mag-Ox] 400 mg PO BID #60 tablet 10/14/16 [Rx] RX: NIFEdipine XL (24 HR) [Procardia XL] 60 mg PO DAILY #60 10/14/16 [Rx] RX: Nicotine Patch [Nicoderm] 21 mg TD DAILY #30 10/14/16 [Rx] Allergies/Adverse Reactions: Allergies codeine Adverse Reaction (Verified 06/29/16 01:00) Itching morphine Adverse Reaction (Verified 10/12/16 20:55) Itching Oxycodone [From Percocet] Adverse Reaction (Verified 06/29/16 01:00) Itching propoxyphene [From Darvon] Adverse Reaction (Verified 06/29/16 01:00) Itching Procedures/tests Complete & Pending: Procedures Performed prior 72 hours Category Date Time Status CT head/brain wo con [CT] Routine Cat Scan 10/12/16 15:04 Completed Date of admission: 10/12/16 12:59 Primary care physician: PCP NO - Patient Status Disposition: Home, Self-Care Condition: Good - Discharge Instructions Instructions: Chest Pain (DC), Chronic Hypertension (DC) Follow Up With: Stefan Navarrete MD [Partnered Physician] - 10/17/16 2:30 pm Additional Instructions: Please check your blood pressure twice daily, same time in the morning and evening. Write down the numbers and bring the record to doctor's appointment. Your sugars have been adequate during this hospitalization. Continue an strict diabetic diet and hold your Lantus until your blood sugars are above 140. Please check your blood sugars before meals and at bedtime. Write down the numbers and bring the record to doctor's appointment. Quit smoking. - Diet and Activity Activity: resume usual activities as tolerated Diet: diabetic diet, low fat, low cholesterol, low salt diet, other (fluid restriction 1.8L/day) Interval History: Patient has no chest pain, shortness of breath or lightheadedness. She reports chronic back pain. She is eager to go home because of his her mother in law overnight. Hospital course: Ms. Cheng is a 60 year old female with past medical history of diabetes type 2 , hypertension, CKD 3 and tobacco who presented with a chief complaint of severe headaches. BP on admission was 226/141. CT of the head showed no acute intracranial process. Chest x-ray showed mild edema. Initially, patient received Cardene drip but this was discontinued after starting her oral BP medications. She was started on nifedipine, lisinopril, metoprolol, and furosemide. Patient and family member were explained in detail her diagnosis, test results, treatment and prognosis. She was counseled to quit smoking. The day of discharge, patient went to the bathroom and nurse reported a possible V. tach on bus driver/monitor. I reviewed telemetry strips and it showed artifact and no V. tach. She also complained of left pink finger swelling. She denied any injury. X-ray of the finger showed flexion deformity of the fifth DIP joint without evidence of acute fracture. May 2016: Echocardiogram showed LVEF 60%, moderate concentric left ventricular hypertrophy, mild left ventricular diastolic dysfunction, mild pulmonary hypertension. No significant valvular dysfunction. PLAN: Patient with follow-up with primary care physician in one week. Fluid restriction 1.8 L per day. - Time Spent with Patient Total time spent providing and/or coordinating discharge services: - Constitutional Vitals: Temp Pulse Resp BP Pulse Ox 97.5 F L 54 18 165/83 98 10/14/16 07:35 10/14/16 08:13 10/14/16 07:35 10/14/16 07:35 10/14/16 07:35 General appearance: Present: cooperative, A&O X 3, pleasant, no acute distress, answers questions appropriately - Neck Neck exam general surgery: Present: supple, trachea midline. Absent: lymphadenopathy - Respiratory Respiratory exam: Present: CTAB - Cardiovascular Cardiovascular exam: Present: RRR - GI/Abdominal GI/Abdominal exam: Present: normal bowel sounds, soft. Absent: distended, tenderness - Extremities Exam Extremities exam: Present: pedal edema (1+ lower extremity edema.) - Back Exam Back exam: Present: paraspinal tenderness - Neurological Exam Neurological exam: Present: alert, oriented X3, no focal deficits, strengths equal and symetr throughout. Absent: facial droop, speech deficit - Skin Skin exam: Absent: rash
[2016-10-14 11:42] VITALS: BP 160/94
--- NOTE | 2016-10-16 09:33 | Electrocardiograph Report ---
[facility] Test Date: 2016-10-12 Pat Name: Vivek Cheng Department: 102 Room: 2N08 Gender: F Nca Certified Concierge: [facility] : 1955 Requested By: Lakeisha Holloway Order Number: [id number] Reading MD: Arnoldo Tan MD Measurements Intervals [place] Rate: 65 P: 36 FL: 127 QRS: 26 QRSD: 83 T: 7 QT: 388 QTc: 399 Interpretive Statements ELECTRONIC ATRIAL PACEMAKER ELECTRONIC VENTRICULAR PACEMAKER ABNORMAL RHYTHM ECG Poor data quality affects interpretation, tracing clouded by artifact Electronically Signed On 10-16-2016 9:31:35 EDT by Arnoldo Tan MD
== END 2016-10-14 13:43 | disposition home or self-care (01) | DRG 305 ==
LOC: EMEROO 07:15 → 3BNU 07:15 → 2NNU 10:55 → SUATTDRO 12:59
PROVIDERS: ADMIT Internal Medicine; ATTEND Internal Medicine

== ENCOUNTER 2016-11-23 21:34 | Observation (INO) ==
[2016-11-23] MEDS ORDERED: Aspirin 81 MG TAB.CHEW PO ONE (21:57)
[2016-11-23] MEDS ORDERED: Nitroglycerin 0.4 MG TAB.SUBL SL PRN (21:57)
[2016-11-23 22:09] LABS: Basophils # 0.1 K/mcL (0.0-0.2); Basophils % 0.4 %; Eosinophils # 0.3 K/mcL (0.0-0.6); Eosinophils % 1.7 %; Hematocrit 42.1 % (35.3-44.9); Hemoglobin 13.6 g/dL (11.5-15.4); Immature Granulocytes % 0.3 % (0-4); Lymphocytes % 26.7 %; Mean Corpuscular HGB Conc 32.3 g/dL (31.6-35.5); Mean Corpuscular Hemoglobin 29.8 pg (28.0-33.3); Mean Corpuscular Volume 92.3 fL (83.0-100.0); Mean Platelet Volume 10.7 fL (9.4-12.4); Monocytes # 1.2 K/mcL (0.0-1.3); Neutrophils # 9.3 K/mcL (1.6-8.9); Platelet Count 246 K/mcL (140-400); Red Blood Count 4.56 M/mcL (3.82-4.97); Red Cell Distribution Width 15.2 % (11.5-14.5); Segmented Neutrophils % 62.9 %
[2016-11-23 22:15] LABS: Prothrombin Time 10.5 Seconds (9.4-12.1)
[2016-11-23 22:18] LABS: Activated Partial Thrombo Time 32.2 Seconds (26.0-36.0)
[2016-11-23 22:24] LABS: BUN/Creatinine Ratio 24 (6-26); Blood Urea Nitrogen 24 mg/dL (7-20); Calcium 10.9 mg/dL (8.6-10.8); Carbon Dioxide 24 mEq/L (19-29); Chloride 108 mEq/L (98-109); Glucose 75 mg/dL (70-99); Osmolality,Calculated 297 (280-300); Potassium 3.8 mEq/L (3.5-4.5); Sodium 142 mEq/L (136-145); eGFR For African Americans > 60 (> 60); eGFR For Non-African Americans 56 (> 60)
[2016-11-23] MEDS ORDERED: *HR* HYDROmorphone (PF) 1 MG/ML SYRINGE IVP ONE (22:36)
[2016-11-23] MEDS ORDERED: *HR* Promethazine 25 MG/ML VIAL IVP ONE (22:40)
--- NOTE | 2016-11-23 22:44 | Emergency Department Note ---
Disposition Clinical Impression: Chest pain Qualifiers: Chest pain type: precordial pain Qualified Code(s): R07.2 - Precordial pain Disposition: Admitted As Inpatient Condition: Fair Time of Disposition: 23:41 General Adult HPI - General Chief complaint: ED Chest Pain Stated complaint: CP/ALTON/HTN Time Seen by Provider: 11/23/16 21:48 Source: patient Mode of arrival: ambulatory Limitations: no limitations Nursing Notes Reviewed: Yes Vital Signs Reviewed: Yes - History of Present Illness HPI Narrative: Pt is a 60F with a PMHx of CHF and hypertension presenting with left-sided chest pain that started earlier today around 3 PM. She describes the chest pain as pressure-like in the left side of her chest radiating down to her left arm with associated nausea and diaphoresis. She states it does not change with exertion. She also has associated shortness of breath. She denies any cardiac history, however when I look into her charts I see that she has a past medical history of CHF. Her blood pressure is also elevated and her daughters are with her and they state that the patient has missed 2 out of her 4 blood pressure medications today. Pain Scale: 8 - Related Data Home Medications Medication Instructions Recorded Confirmed Zolpidem [Ambien] 10 mg PO HS 06/12/16 11/24/16 Albuterol Sulfate [Proair Hfa] 2 puff IH Q4-6H PRN 10/12/16 11/24/16 Aspirin [Lo-Dose Aspirin EC] 81 mg PO DAILY 10/12/16 11/24/16 Atorvastatin Calcium [Lipitor] 20 mg PO DAILY 10/12/16 11/24/16 Gabapentin [Neurontin] 300 mg PO QAM 10/12/16 11/24/16 Gabapentin [Neurontin] 600 mg PO HS 10/12/16 11/24/16 Metoprolol Succinate 100 mg PO DAILY 10/12/16 11/24/16 Tramadol HCl [Ultram] 50 mg PO TID 10/13/16 11/24/16 Insulin Glargine [Lantus] 20 unit SQ HS 11/24/16 11/24/16 NIFEdipine [Nifedipine] 10 mg PO DAILY 11/24/16 11/24/16 Rosuvastatin Calcium [Rosuvastatin 5 mg PO DAILY 11/24/16 11/24/16 Calcium] amLODIPine [Norvasc] 5 mg PO DAILY 11/24/16 11/24/16 Previous Rx's Medication Instructions Recorded Insulin LISPRO [HumaLOG] 8 units SQ TIDWM #2 vial 06/15/16 Furosemide [Lasix] 40 mg PO BID #60 tab 10/14/16 Magnesium Oxide [Mag-Ox] 400 mg PO BID #60 tablet 10/14/16 Allergies Allergy/AdvReac Type Severity Reaction Status Date / Time codeine AdvReac Itching Verified 11/23/16 21:44 morphine AdvReac Itching Verified 11/23/16 21:44 Oxycodone [From Percocet] AdvReac Itching Verified 11/23/16 21:44 propoxyphene [From Darvon] AdvReac Itching Verified 11/23/16 21:44 All systems ED: reviewed and negative except as stated. Constitutional: Denies: fever, chills Cardiovascular: Reports: chest pain. Denies: palpitations, dyspnea on exertion , orthopnea, syncope Respiratory: Reports: dyspnea. Denies: cough, wheezes Gastrointestinal: Reports: nausea. Denies: abdominal pain, vomiting Musculoskeletal: Denies: back pain Neurological: Denies: headache, weakness Past Medical History - Past Medical History Medical history: Reports: asthma, diabetes, hypertension, kidney stones, other Surgical history: Reports: non-contributory, cholecystectomy, hysterectomy, other (Placement of a spinal stimulator) Psychiatric history: Reports: no psych history - Social History Smoking Status: Current every day smoker Smokeless Tobacco Status: No Alcohol use: Reports: occasionally Drug use: Reports: marijuana Physical Exam Patient is in no acute distress. Her blood pressure is elevated however she has missed her medication doses today. - General Limitations: no limitations General appearance: alert, in no apparent distress - Head Head exam: atraumatic, normocephalic, normal inspection - Eye Eye exam: Present: normal appearance, PERRL - ENT ENT exam: normal exam, normal oropharynx, mucous membranes moist - Neck Neck exam: Present: normal inspection, full ROM, trachea midline - Chest Chest inspection: Present: normal inspection, symmetric chest wall rise - Respiratory Respiratory exam: Present: normal lung sounds bilaterally. Absent: respiratory distress - Cardiovascular Cardiovascular exam: Present: regular rate, normal rhythm, normal heart sounds - Abdominal Exam Abdominal exam: Present: soft, Non-Tender, normal bowel sounds - Extremities Exam Extremities exam: Present: normal inspection, full ROM. Absent: tenderness, pedal edema - Expanded Lower Extremity Exam Neurovascular/Tendon exam: Present: normal capillary refill. Absent: pulse deficit, motor deficit - Back Exam Back exam: Present: normal inspection, full ROM. Absent: tenderness - Neurological Exam Neurological exam: Present: alert, oriented X3 - Psychiatric Psychiatric exam: Present: normal affect, normal mood - Skin Skin exam: Present: warm, dry, intact, normal color Course Course Narrative: Patient is a 60-year-old female presenting with complaint of left sided chest pain as pressure-like and radiating into her left arm with a history of CHF otherwise no known cardiac history. Patient also has a history of hypertension. She is also complaining of a headache which is her normal headache that "only Dilaudid works for it." Plan this patient is do a cardiac workup. I also treated her headache. Due to the patient's risk factors and her presenting symptoms plan is to admit this patient for chest pain. - Reevaluation(s) Reevaluation #1: Patient states that her pain did improve after the nitroglycerin. Her blood pressure also improved to 160/90. She states that her headache has improved with the medications well. I discussed with her that her lab work was unremarkable, her EKG is unremarkable, her chest x-ray was negative however we will admit her for further evaluation of her chest pain. Patient agrees with this plan. Time: 23:20 Reevaluation #2: Dr. Quiroga accepts the patient. Time: 23:35 Vital Signs Temperature 98 F 11/23/16 21:38 Pulse Rate 62 11/23/16 21:38 Respiratory Rate 24 11/23/16 21:38 Blood Pressure 199/86 11/23/16 21:38 O2 Sat by Pulse Oximetry 95 11/23/16 21:38 Temperature 97.8 F 11/24/16 19:27 Pulse Rate 56 11/24/16 19:27 Respiratory Rate 16 11/24/16 19:27 Blood Pressure 165/69 11/24/16 19:27 O2 Sat by Pulse Oximetry 95 11/24/16 19:27 Oxygen Delivery Oxygen Delivery Room Air Medical Decision Making - Medical Records Medical records reviewed: Yes I reviewed the patient's medical records. - Lab Data Lab results reviewed: Yes I reviewed the patient's lab results. Result diagrams: 11/24/16 03:01 11/24/16 03:01 Lab Results 11/23/16 11/23/16 11/23/16 Range/Units 22:02 22:02 22:02 WBC 14.8 H (4.3-11.1) K/mcL RBC 4.56 (3.82-4.97) M/mcL Hgb 13.6 (11.5-15.4) g/dL Hct 42.1 (35.3-44.9) % MCV 92.3 (83.0-100.0) fL MCH 29.8 (28.0-33.3) pg MCHC 32.3 (31.6-35.5) g/dL RDW 15.2 H (11.5-14.5) % Plt Count 246 (140-400) K/mcL MPV 10.7 (9.4-12.4) fL Immature Gran % 0.3 (0-4) % Seg Neutrophils % 62.9 % Lymphocytes % 26.7 % Monocytes % 8.0 % Eosinophils % 1.7 % Basophils % 0.4 % Neutrophils # 9.3 H (1.6-8.9) K/mcL Lymphocytes # 4.0 (0.6-4.6) K/mcL Monocytes # 1.2 (0.0-1.3) K/mcL Eosinophils # 0.3 (0.0-0.6) K/mcL Basophils # 0.1 (0.0-0.2) K/mcL PT 10.5 (9.4-12.1) Seconds INR 1.0 APTT 32.2 (26.0-36.0) Seconds Sodium 142 (136-145) mEq/L Potassium 3.8 (3.5-4.5) mEq/L Chloride 108 (98-109) mEq/L Carbon Dioxide 24 (19-29) mEq/L BUN 24 H (7-20) mg/dL Creatinine 1.00 (0.57-1.11) mg/dL Est GFR ( Amer) > 60 (> 60) Est GFR (Non-Af Amer) 56 L (> 60) BUN/Creatinine Ratio 24 (6-26) Glucose 75 (70-99) mg/dL Calculated Osmolality 297 (280-300) Calcium 10.9 H (8.6-10.8) mg/dL Troponin I (0-0.03) ng/mL B-Natriuretic Peptide (0-100) pg/mL 11/23/16 11/23/16 Range/Units 22:02 22:03 WBC (4.3-11.1) K/mcL RBC (3.82-4.97) M/mcL Hgb (11.5-15.4) g/dL Hct (35.3-44.9) % MCV (83.0-100.0) fL MCH (28.0-33.3) pg MCHC (31.6-35.5) g/dL RDW (11.5-14.5) % Plt Count (140-400) K/mcL MPV (9.4-12.4) fL Immature Gran % (0-4) % Seg Neutrophils % % Lymphocytes % % Monocytes % % Eosinophils % % Basophils % % Neutrophils # (1.6-8.9) K/mcL Lymphocytes # (0.6-4.6) K/mcL Monocytes # (0.0-1.3) K/mcL Eosinophils # (0.0-0.6) K/mcL Basophils # (0.0-0.2) K/mcL PT (9.4-12.1) Seconds INR APTT (26.0-36.0) Seconds Sodium (136-145) mEq/L Potassium (3.5-4.5) mEq/L Chloride (98-109) mEq/L Carbon Dioxide (19-29) mEq/L BUN (7-20) mg/dL Creatinine (0.57-1.11) mg/dL Est GFR ( Amer) (> 60) Est GFR (Non-Af Amer) (> 60) BUN/Creatinine Ratio (6-26) Glucose (70-99) mg/dL Calculated Osmolality (280-300) Calcium (8.6-10.8) mg/dL Troponin I 0.02 (0-0.03) ng/mL B-Natriuretic Peptide 52 (0-100) pg/mL - Radiology Data Radiology results reviewed: Yes I reviewed the patient's radiology results. Chest X-Ray 11/23/16 21:44 IMPRESSION: No acute cardiopulmonary abnormality. D/ / Ramesh Peñaloza MD / Ramesh Peñaloza MD Interpreting Provider: Ramesh Peñaloza MD - EKG Data EKG #1 EKG attestation: Yes I reviewed and interpreted this EKG. EKG results narrative: Salvador's EKG done at 21:40. EKG is sinus bradycardia at a rate of 57. Normal axis. Good R-wave progression. OH is 364, QRS is 81, QT is 434 this is within normal limits. No signs of ST elevation or depression or Q waves. Patient does have nonspecific ST-T wave abnormalities that are unchanged from her EKG done on 10/12/2016. The patient also has a spinal stimulator which explains the paced rhythm. Attestation Statement - Attestation Attestation: I personally interviewed and examined this patient and my medical decision- making was reviewed with the Resident Physician, Dr. Kirkland and Dr. Montalvo. I agree with the documented findings, disposition and treatment plan as described except to the extent set forth below. Patient is a 60-year-old morbidly obese black female with a history of CHF and hypertension who presents to the emergency department today with left-sided chest pain radiating to her shoulder and arm associated with nausea and diaphoresis as well as shortness of breath that began about 3:00 today. Symptoms began at rest. Patient denies any other cardiac history although by records she has a history of CHF that she was admitted for in the past few months. Patient also complaining of a generalized headache which is "normal for her" as she gets frequent migraines and this feels very typical to her similar migraines. Headache began about an hour ago. Patient has had no vomiting no abdominal pain back or flank pain. I agree patient's physical exam findings as documented. Patient's EKG was normal sinus rhythm and does not show any acute ischemic changes. Patient received aspirin in nature on arrival which did resolve her chest pain. She was also given pain medications for her headache which did resolve in the department as well. Patient's lab evaluation and chest x-ray up to this point are unremarkable patient is amenable to admission for further evaluation of this chest pain. Patient will be admitted case was discussed with the hospitalist except for further evaluation and management.
--- NOTE | 2016-11-23 23:52 | Internal Med History&Physical ---
Date of Encounter: 11/24/16 Time of Encounter: 23:52 Assessment and Plan (1) Chest pain at rest Current visit: Yes Status: Acute likely due to accelerated HTN. No exertional component, doubt ACS, but cannot r/ o IHD considering risk factors. - check serial troponin - check serial EKG - check drug screen, r/o cocaine use - control BP - patient reports a stress test in May 2016, but I cannot find results. If a stress test has not been performed in the past, it would be best to obtain an exercise stress echo or nuclear scan after BP has normalized - if troponin positive or EKG changes with chest pain, start ACS protocol (2) Accelerated hypertension Current visit: Yes Status: Acute 210/96 --> 181/72 - patient reports adherence to all home medicines - start home medicines, including metoprolol, lisinopril, nifedipine - if not uncontrolled with above, consider starting spironolactone (3) Tobacco use disorder, continuous Current visit: Yes Status: Acute counseled, nicotine patch (4) DVT prophylaxis Current visit: Yes Status: Acute ambulatory (5) Leukocytosis Current visit: No Status: Chronic chronically elevated WBC count, no fever or S/S suggesting infection, monitor Qualifiers: Leukocytosis type: unspecified Qualified Code(s): D72.829 - Elevated white blood cell count, unspecified Internal Medicine - H&P: HPI Chief complaint: chest pain Admitted From: Emergency Dept Plans for Post Hospital Care: Home History of present illness: Ms. Cheng is a 60 year old woman with DM, HTN, HL who has presented due to chest pain which started in the morning and resolved but later recurred in the afternoon around 3 pm. It was pressure like in anterior chest with radiation to left arm. Initialy 9/10 in severity, spontaneously improved to 5/10 after an hour and decreased gradually after NG given in ER. Of note, her BP was 210/96 on arrival to ER. She had similar episode in may 2016, and reports having a normal stress test at that time. No associated symptoms. Headache, since before NG was given. A 10-point ROS is negative for dizziness, eye or ear symptoms, rhinorrhea, flu like symptoms, dyspnea, cough, sputum, nausea, vomiting, abdominal pain, d, c, dysuria, focal motor deficits or other symptoms. Past Med Surg Social Fam HX - Past Medical History Medical history: asthma, diabetes (with neuropathy), hypertension, kidney stones , peripheral artery disease (right carotid 60-79% stenosis 2017), other Psychiatric history: no psych history - Past Surgical History Surgical History: cholecystectomy, hysterectomy, other (Placement of a spinal stimulator, lithotripsy, ear surgery) - Social History Smoking Status: Current every day smoker (x 25 years) Smokeless Tobacco Status: No Alcohol use: occasionally Drug use: cocaine (at age 18), marijuana - Family History Mother Hx Family Endocrine Disorder: Yes (Diabetes) Hx Family Neurologic Disorders: Yes (CVA) Father Hx Family Cancer: Yes (Pancreatic cancer) Grandmother Hx Family Cancer: Yes (Breast cancer) Internal Medicine - H&P: Meds Zolpidem [Ambien] 10 mg PO HS 06/12/16 [History] Insulin LISPRO [HumaLOG] 8 units SQ TIDWM #2 vial 06/15/16 [Rx] Albuterol Sulfate [Proair Hfa] 2 puff IH Q4-6H PRN 10/12/16 [History] Aspirin [Lo-Dose Aspirin EC] 81 mg PO DAILY 10/12/16 [History] Atorvastatin Calcium [Lipitor] 20 mg PO DAILY 10/12/16 [History] Gabapentin [Neurontin] 300 mg PO QAM 10/12/16 [History] Gabapentin [Neurontin] 600 mg PO HS 10/12/16 [History] Metoprolol Succinate 100 mg PO DAILY 10/12/16 [History] Tramadol HCl [Ultram] 50 mg PO TID 10/13/16 [History] Furosemide [Lasix] 40 mg PO BID #60 tab 10/14/16 [Rx] Lisinopril [Zestril] 40 mg PO DAILY #60 tab 10/14/16 [Rx] Magnesium Oxide [Mag-Ox] 400 mg PO BID #60 tablet 10/14/16 [Rx] NIFEdipine XL (24 HR) [Procardia XL] 60 mg PO DAILY #60 10/14/16 [Rx] Nicotine Patch [Nicoderm] 21 mg TD DAILY #30 10/14/16 [Rx] 3 Allergy/AdvReac Type Severity Reaction Status Date / Time codeine AdvReac Itching Verified 11/23/16 21:44 morphine AdvReac Itching Verified 11/23/16 21:44 Oxycodone [From Percocet] AdvReac Itching Verified 11/23/16 21:44 propoxyphene [From Darvon] AdvReac Itching Verified 11/23/16 21:44 All Systems PM: A 10-system review of systems was performed and is negative for pertinent findings except as documented above in the HPI. - Constitutional Vitals: Temp Pulse Resp BP Pulse Ox 98 F 59 16 190/98 97 11/23/16 21:38 11/23/16 23:17 11/23/16 23:17 11/23/16 23:17 11/23/16 23:17 General appearance: Present: A&O X 3, pleasant, no acute distress - Head Head exam: Present: atraumatic - Eye Eye exam: Present: normal appearance, PERRL, conjuntiva pink, sclera anicteric. Absent: conjunctival injection, periorbital swelling - ENT ENT exam: Present: mucous membranes moist, normal exam - Neck Neck exam general surgery: Present: supple. Absent: nuchal rigidity - Respiratory Respiratory exam: Present: CTAB. Absent: prolonged expiratory phase, rales, rhonchi, wheezes - Cardiovascular Cardiovascular exam: Present: +S1, +S2, systolic murmur (2/6) - GI/Abdominal GI/Abdominal exam: Present: normal bowel sounds, soft, no peritoneal signs. Absent: guarding, rebound, rigid - Extremities Exam Extremities exam: Absent: calf tenderness, pedal edema, tenderness - Back Exam Back exam: Absent: CVA tenderness (L), CVA tenderness (R) - Neurological Exam Neurological exam: Present: alert, oriented X3, no focal deficits. Absent: facial droop - Psychiatric Psychiatric exam: Present: normal affect, normal mood - Skin Skin exam: Absent: erythema, rash Internal Med - H&P Results - Labs CBC & Chem 7: 11/23/16 22:02 11/23/16 22:02 - EKG Data -: EKG Interpreted by Myself EKG shows normal: sinus rhythm (57 bpm, no acute ischemic changes) - Diagnostic Studies Other Images Additional comments: Prior TTE in May 2016: EF 60%, mild diastolic dysfunction, no significant valvular disease, mild LVH
[2016-11-24] MEDS ORDERED: Naloxone 0.4 MG/ML INJ IVP PRN (01:22)
[2016-11-24] MEDS ORDERED: Dextrose Gel 15 GM PO PRN ×2 (01:45)
[2016-11-24] MEDS ORDERED: D5% in Water 1,000 ML IVC PRN (01:45)
[2016-11-24] MEDS ORDERED: *HR* Dextrose 50 % in Water (Syg) 50 ML SYRINGE IVP PRN (01:45)
[2016-11-24] MEDS ORDERED: Metoprolol XL (24 HR) Succ 50 MG TAB.ER.24H PO SCH (02:00)
[2016-11-24] MEDS: Insulin LISPRO 300 UNITS/3 ML VIAL SQ SCH ×8 (02:02→21:51)
[2016-11-24] MEDS: Lisinopril 20 MG TABLET PO SCH (02:35)
[2016-11-24] MEDS: Gabapentin 300 MG CAPSULE PO SCH ×2 (02:35→20:32)
[2016-11-24 05:00] LABS: Hemoglobin 12.7 g/dL (11.5-15.4); Mean Corpuscular HGB Conc 31.8 g/dL (31.6-35.5); Mean Corpuscular Hemoglobin 29.4 pg (28.0-33.3); Mean Corpuscular Volume 92.6 fL (83.0-100.0); Platelet Count 225 K/mcL (140-400); Red Blood Count 4.32 M/mcL (3.82-4.97)
[2016-11-24 05:11] LABS: Hemoglobin A1C 6.3 %
[2016-11-24 05:15] LABS: BUN/Creatinine Ratio 23 (6-26); Blood Urea Nitrogen 22 mg/dL (7-20); Calcium 10.5 mg/dL (8.6-10.8); Carbon Dioxide 26 mEq/L (19-29); Chloride 109 mEq/L (98-109); Glucose 104 mg/dL (70-99); Osmolality,Calculated 298 (280-300); Potassium 3.8 mEq/L (3.5-4.5); Sodium 142 mEq/L (136-145); eGFR For African Americans > 60 (> 60); eGFR For Non-African Americans 59 (> 60)
[2016-11-24] MEDS ORDERED: Lisinopril 20 MG TABLET PO SCH (09:00)
[2016-11-24] MEDS: Aspirin Enteric Coated 81 MG Tablet PO SCH (10:22)
[2016-11-24] MEDS: Metoprolol XL (24 HR) Succ 50 MG TAB.ER.24H PO SCH (10:22)
[2016-11-24] MEDS: Nicotine 21 MG PATCH.TD24 TD SCH (10:23)
[2016-11-24] MEDS: NIFEdipine XL (24 HR) 60 MG TAB.ER.24 PO SCH (10:23)
[2016-11-24] MEDS: Acetaminophen 325 MG TABLET PO PRN (10:39)
[2016-11-24] MEDS ORDERED: cloNIDine HCl 0.1 MG TABLET PO ONE (10:51)
--- NOTE | 2016-11-24 12:47 | Internal Med Progress Note ---
Date of Encounter: 11/24/16 Time of Encounter: 10:15 - Assessment and plan (1) Hypertensive urgency Current Visit: Yes Status: Acute Assessment and plan: Blood pressure is better controlled. We will add the patient on hydrochlorothiazide. Continue home medications. (2) Chest pain Current Visit: Yes Status: Acute Assessment and plan: Currently resolved. May be related to her hypertensive urgency. Will obtain pharmacological stress test as her stress test was more than 20 years ago. Qualifiers: Chest pain type: precordial pain Qualified Code(s): R07.2 - Precordial pain (3) Diabetes mellitus with diabetic neuropathy, with long-term current use of insulin Current Visit: Yes Status: Chronic Assessment and plan: Continue home medications. Control blood sugars. Diabetic diet. Qualifiers: Diabetes mellitus type: type 2 Qualified Code(s): E11.40 - Type 2 diabetes mellitus with diabetic neuropathy, unspecified; Z79.4 - penitentiary (current) use of insulin (4) COPD (chronic obstructive pulmonary disease) Current Visit: Yes Status: Chronic Assessment and plan: Continue home medications. Stable and without exacerbation. Qualifiers: COPD type: unspecified COPD Qualified Code(s): J44.9 - Chronic obstructive pulmonary disease, unspecified - Subjective Interval history: Patient was admitted yesterday due to episodes of chest pain that occurred yesterday afternoon and yesterday evening. Currently, she states that she does not have any chest pain. She denies any shortness of breath, palpitations, cough or wheezing. Denies any headache. She reports checking her blood pressure at home. - Constitutional Vitals: Temp Pulse Resp BP Pulse Ox 98 F 54 14 166/69 94 11/24/16 11:06 11/24/16 11:06 11/24/16 11:06 11/24/16 11:06 11/24/16 11:06 General appearance: Present: A&O X 3, pleasant, no acute distress Exam: Gen.: Lying in bed. No acute distress. Chest: Clear to auscultation bilaterally. No adventitious sounds present. CVS: First and second heart sounds present. No murmurs, rubs or gallops. Abdomen: Soft, nontender, obese. Bowel sounds present. No hepatosplenomegaly. Skin: No decubitus ulcers appreciated. Internal Medicine: Result - Labs CBC & Chem 7: 11/24/16 03:01 11/24/16 03:01 Labs: Short CBC 11/24/16 Range/Units 03:01 WBC 13.9 H (4.3-11.1) K/mcL Hgb 12.7 (11.5-15.4) g/dL Hct 40.0 (35.3-44.9) % Plt Count 225 (140-400) K/mcL BMP 11/24/16 03:01 Sodium 142 Potassium 3.8 Chloride 109 Carbon Dioxide 26 BUN 22 H Creatinine 0.96 Glucose 104 H Calcium 10.5 Cardiac Enzymes 11/24/16 11/24/16 Range/Units 03:01 10:01 Troponin I 0.01 0.01 (0-0.03) ng/mL - ABG Interpretation ABG results: PT/INR, D-dimer PT 10.5 Seconds (9.4-12.1) 11/23/16 22:02 Consult Discharge Plan - Plan Referrals: Stefan Navarrete MD [Primary Care Provider] -
[2016-11-24] MEDS ORDERED: Acetaminophen/Butalbital/CaffeineTABLET PO ONE (16:29)
[2016-11-24 19:15] LABS: Amphetamine Screen,Urine Negative ng/mL (Cutoff=1000); Barbiturate Screen,Urine Negative ng/mL (Cutoff=200); Benzodiazepines Screen,Urine Negative ng/mL (Cutoff=200); Cannabinoid Screen,Urine Positive ng/mL (Cutoff = 50); Cocaine Screen,Urine Negative ng/mL (Cutoff= 300); Opiate Screen,Urine Negative ng/mL (Cutoff=300); Phencyclidine Screen,Urine Negative ng/mL (Cutoff=25)
[2016-11-25] MEDS: Acetaminophen 325 MG TABLET PO PRN (05:35)
[2016-11-25] MEDS ORDERED: Regadenoson 0.4 MG/5 ML SYRINGE IVP ONE (05:46)
[2016-11-25] MEDS: Insulin LISPRO 300 UNITS/3 ML VIAL SQ SCH ×7 (07:45→21:00)
[2016-11-25] MEDS ORDERED: hydroCHLOROthiazide 25 MG TABLET PO SCH (09:00)
--- NOTE | 2016-11-25 09:57 | Electrocardiograph Report ---
[address] [address] Test Date: 2016-11-23 Pat Name: Vivek Cheng Department: 105 Room: 3B14 Gender: Sling Operator: LEE : 1955 Requested By: Isa Arnold Order Number: [id number] Reading MD: Laura Gould Measurements Intervals Lilly Rate: 57 P: 0 AR: 364 QRS: 35 QRSD: 81 T: 14 QT: 434 QTc: 428 Interpretive Statements ARTIFACT LIMITS INTERPRETATION Electronically Signed On 11-25-2016 9:55:57 EDT by Laura Gould
[2016-11-25] MEDS: Metoprolol XL (24 HR) Succ 50 MG TAB.ER.24H PO SCH (10:02)
[2016-11-25] MEDS: Aspirin Enteric Coated 81 MG Tablet PO SCH (10:03)
[2016-11-25] MEDS: Lisinopril 20 MG TABLET PO SCH (10:03)
[2016-11-25] MEDS: NIFEdipine XL (24 HR) 60 MG TAB.ER.24 PO SCH (10:03)
[2016-11-25] MEDS: Nicotine 21 MG PATCH.TD24 TD SCH (10:03)
[2016-11-25] MEDS: Gabapentin 300 MG CAPSULE PO SCH ×2 (10:04→21:08)
[2016-11-25] MEDS: traMADol 50 MG TABLET PO PRN ×2 (11:08→21:08)
--- NOTE | 2016-11-25 17:05 | Internal Med Progress Note ---
Date of Encounter: 11/25/16 Time of Encounter: 15:30 - Assessment and plan (1) Hypertensive urgency Current Visit: Yes Status: Acute Assessment and plan: Blood pressure is better controlled. Increase the dose of hydrocodone thiazide 25 mg by mouth daily. Patient states that she takes amlodipine instead of Procardia. This has been changed. Her blood pressure continues to remain elevated on the current medication regimen, she will be started on spironolactone for resistant hypertension tomorrow. (2) Chest pain Current Visit: Yes Status: Resolved Assessment and plan: Resolved chest pain. Stress test results are currently pending. We will follow the results of the stress test and manage accordingly. Qualifiers: Chest pain type: precordial pain Qualified Code(s): R07.2 - Precordial pain (3) Diabetes mellitus with diabetic neuropathy, with long-term current use of insulin Current Visit: Yes Status: Chronic Assessment and plan: Continue home medications. Control blood sugars. Diabetic diet. 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 Stable and without exacerbation. Qualifiers: COPD type: unspecified COPD Qualified Code(s): J44.9 - Chronic obstructive pulmonary disease, unspecified - Subjective Interval history: She reports feeling tired. She had stress test performed today. She denies any chest pain, shortness of breath or palpitations. - Constitutional Vitals: Temp Pulse Resp BP Pulse Ox 98.3 F 53 16 173/71 94 11/25/16 15:45 11/25/16 15:45 11/25/16 15:45 11/25/16 16:33 11/25/16 15:45 General appearance: Present: A&O X 3, pleasant, no acute distress Exam: Gen.: Lying in bed. No acute distress. Chest: Clear to auscultation bilaterally. No adventitious sounds present. CVS: First and second heart sounds present. No murmurs, rubs or gallops. Abdomen: Soft, nontender, obese. Bowel sounds present. No hepatosplenomegaly. Internal Medicine: Result - Labs CBC & Chem 7: 11/24/16 03:01 11/24/16 03:01 - ABG Interpretation ABG results: PT/INR, D-dimer PT 10.5 Seconds (9.4-12.1) 11/23/16 22:02 Consult Discharge Plan - Plan Referrals: Stefan Navarrete MD [Primary Care Provider] - 11/28/16 3:00 pm
[2016-11-25] MEDS: *HR* Enoxaparin 40 MG/0.4 ML SYRINGE SQ SCH (17:54)
[2016-11-26] MEDS: Insulin LISPRO 300 UNITS/3 ML VIAL SQ SCH ×4 (07:10→12:30)
[2016-11-26] MEDS: Aspirin Enteric Coated 81 MG Tablet PO SCH (08:10)
[2016-11-26] MEDS: Gabapentin 300 MG CAPSULE PO SCH (08:11)
[2016-11-26] MEDS: Lisinopril 20 MG TABLET PO SCH (08:11)
[2016-11-26] MEDS: *HR* Enoxaparin 40 MG/0.4 ML SYRINGE SQ SCH (08:12)
[2016-11-26] MEDS: Metoprolol XL (24 HR) Succ 50 MG TAB.ER.24H PO SCH (08:12)
[2016-11-26] MEDS: Nicotine 21 MG PATCH.TD24 TD SCH (08:12)
[2016-11-26] MEDS ORDERED: hydroCHLOROthiazide 25 MG TABLET PO SCH (09:00)
[2016-11-26] MEDS ORDERED: amLODIPine 5 MG TABLET PO SCH (09:00)
--- NOTE | 2016-11-26 10:29 | Nuclear Medicine Stress Report ---
Regadenoson Nuclear 2 day Name: Vivek Cheng Date of Study: 11/25/2016 Date: 1955 Ht: 64.0 in Medical Record#: [id number] Age: 60 Wt: 237.0 lb Gender: Female Order #: [id number] Location: [facility] Room: 14 Supervising Provider: Jonh Diamond CNP Reading Physician: Rasheed Feldman DO, FACStew, MAX FERNANDES Ordering Physician: Wilmer Laughlin MD Primary Care Physician: Stefan Navarrete MD Stress Technologist: Karyn Aguirre AREA REPRESENTATIVE, [facility] Traction Power Engineer: Mundo Cheng Indications: Chest Pain Impression: Pharmacologic stress ECG is negative for ischemia at level of heart rate achieved. Gated EF = 60%. Medium size, mild to moderate intensity, fixed defect involving the apex and surrounding apical segments. Wall motion appears normal. These findings are most c/w artifact. Perfusion imaging was negative for ischemia or infarct. History: Hypertension Diabetes Hypercholesteremia History of Smoking Stress Test Summary: Stress Test Type: Pharmacologic Regadenoson 0.4mg/5ml given IV Baseline Information: Initial Heart Rate: 58 Blood Pressure: 136/78 Stress Information: Test Terminated Due to (primary): As per protocol Maximum Blood Pressure: 118/76 Maximum Heart Rate: 88 Percent Maximum Heart Rate Achieved: 55 Double Product: 20609 METS Reached: 1 Symptoms: Shortness of breath Nuclear Summary: SPECT myocardial perfusion imaging using Tc99m Sestamibi given intravenously was performed at rest and following cardiac stress testing. The resting images were obtained following initial dose of 35 mCi. Following stress an additional dose of 35.5 mCi was given at peak exercise or 30 seconds post regadenoson infusion. Medication Given: Time Medication Dose Units Route Findings: Stress Note * Resting ECG demonstrated normal sinus rhythm. * No baseline arrhythmias were noted. * Pharmacologic stress ECG is negative for ischemia at level of heart rate achieved. * No arrhythmias were noted during stress. * Patient had no chest pain during stress. Hemodynamic responses * Normal hemodynamic responses to pharmacologic stress. Study Quality * Study quality is average. Gated EF % * Gated EF = 60%. Left Ventricle * The left ventricle is not dilated. LVEDV = 92 mL. * Normal wall motion. Apical Perfusion Rest * The apex and surrounding apical segments demonstrate a mild to moderate reduction in perfusion. Apical Perfusion Stress * The apex and surrounding apical segments demonstrate a mild to moderate reduction in perfusion. TID * No evidence of transient ischemic dilatation. TID ratio = 0.90. Lung Uptake * There is no evidence of increase lung uptake. Updated by Rasheed Feldman DO, LUISANA, MAX FERNANDES on 11/26/2016 10:22:16 AM electronically signed on 11/26/2016 10:23:58 AM with status of Final
[2016-11-26 11:10] VITALS: BP 157/69
--- NOTE | 2016-11-26 14:54 | Discharge Summary ---
Date of Encounter: 11/26/16 Time of Encounter: 14:50 - Discharge Diagnosis (1) Hypertensive urgency Priority: Primary Status: Resolved (2) Chest pain Priority: Secondary Status: Resolved Qualifiers: Chest pain type: precordial pain Qualified Code(s): R07.2 - Precordial pain (3) Diabetes mellitus with diabetic neuropathy, with long-term current use of insulin Priority: Secondary Status: Chronic Qualifiers: Diabetes mellitus type: type 2 Qualified Code(s): E11.40 - Type 2 diabetes mellitus with diabetic neuropathy, unspecified; Z79.4 - shelter (current) use of insulin (4) COPD (chronic obstructive pulmonary disease) Priority: Secondary Status: Chronic Qualifiers: COPD type: unspecified COPD Qualified Code(s): J44.9 - Chronic obstructive pulmonary disease, unspecified - Discharge Medications Prescriptions: amLODIPine [Norvasc] 10 mg PO DAILY #60 tab hydroCHLOROthiazide [Hydrochlorothiazide] 25 mg PO DAILY #60 tab Home Medications: Zolpidem [Ambien] 10 mg PO HS 06/12/16 [History] Insulin LISPRO [HumaLOG] 8 units SQ TIDWM #2 vial 06/15/16 [Rx] Albuterol Sulfate [Proair Hfa] 2 puff IH Q4-6H PRN 10/12/16 [History] Aspirin [Lo-Dose Aspirin EC] 81 mg PO DAILY 10/12/16 [History] Gabapentin [Neurontin] 300 mg PO QAM 10/12/16 [History] Gabapentin [Neurontin] 600 mg PO HS 10/12/16 [History] Metoprolol Succinate 100 mg PO DAILY 10/12/16 [History] Tramadol HCl [Ultram] 50 mg PO TID 10/13/16 [History] Magnesium Oxide [Mag-Ox] 400 mg PO BID #60 tablet 10/14/16 [Rx] Insulin Glargine [Lantus] 20 unit SQ HS 11/24/16 [History] Rosuvastatin Calcium 5 mg PO DAILY 11/24/16 [History] Lisinopril [Zestril] 40 mg PO DAILY tab 11/26/16 [Rx] amLODIPine [Norvasc] 10 mg PO DAILY #60 tab 11/26/16 [Rx] hydroCHLOROthiazide [Hydrochlorothiazide] 25 mg PO DAILY #60 tab 11/26/16 [Rx] Allergies/Adverse Reactions: 3 Allergy/AdvReac Type Severity Reaction Status Date / Time codeine AdvReac Itching Verified 11/23/16 21:44 morphine AdvReac Itching Verified 11/23/16 21:44 Oxycodone [From Percocet] AdvReac Itching Verified 11/23/16 21:44 propoxyphene [From Darvon] AdvReac Itching Verified 11/23/16 21:44 Procedures/tests Complete & Pending: Procedures Performed prior 72 hours Category Date Time Status NM karen perf SPECT multi [NM] Routine Exams 11/24/16 11:11 Taken SP pharm nuclear stress Routine Y 11/25/16 07:00 Completed - Notes to Outpatient Provider 1. F/u BP and adjust meds accordingly Date of admission: 11/23/16 23:51 Primary care physician: Stefan Navarrete MD Discharging clinician: Wilmer Laughlin Anticipated date of discharge: 11/26/16 - Patient Status Disposition: Home, Self-Care Condition: Good Functional capacity at discharge: independent ambulation Overall status at discharge: patient is back to baseline - Discharge Instructions Follow Up With: Stefan Navarrete MD [Primary Care Provider] - 11/28/16 3:00 pm - Diet and Activity Activity: increase activity as tolerated, resume usual activities as tolerated Diet: diabetic diet, low fat, low cholesterol, low salt diet Hospital course: Ms. Cheng is a 60 year old female with a history of essential hypertension who presented to the emergency department due to chest pain. In the emergency room , she was found to have elevated blood pressure. Hence, she was admitted to the hospital due to hypertensive urgency and chest pain. Her blood pressures were adjusted and her blood pressure was eventually controlled. She had a pharmacological stress test due to chest pain and risk factors of diabetes, chronic hypertension and her age. Stress test was negative for reversible ischemia. As her blood pressure is adequately controlled and her chest pain has resolved and the stress test is negative for cardiac causes of chest pain, she has been deemed stable to be discharged home today. - Time Spent with Patient Total time spent providing and/or coordinating discharge services: - Constitutional Vitals: Temp Pulse Resp BP Pulse Ox 98.0 F 56 16 157/69 96 11/26/16 11:07 11/26/16 11:07 11/26/16 11:07 11/26/16 11:07 11/26/16 11:07 Exam: Gen.: Sitting in bed. No acute distress. Chest: Clear to auscultation bilaterally. No adventitious sounds present. CVS: First and second heart sounds present. No murmurs, rubs or gallops. Abdomen: Soft, nontender, obese. Bowel sounds present. No hepatosplenomegaly.
== END 2016-11-26 15:44 | disposition home or self-care (01) ==
LOC: 3BNU 21:34 → EMEROO 21:34 → SUATTDRO 23:51 → 3BNU 11-24 00:07
PROVIDERS: ADMIT Internal Medicine; ATTEND Internal Medicine Sleep Medicine

== ENCOUNTER 2018-06-21 15:54 | Observation (INO) ==
[2018-06-21] MEDS ORDERED: Isovue-370 500 ML BOTTLE IVP ONE (16:14)
[2018-06-21 16:25] LABS: Basophils # 0.1 K/mcL (0.0-0.2); Basophils % 0.4 %; Eosinophils # 0.2 K/mcL (0.0-0.6); Eosinophils % 0.9 %; Hematocrit 40.2 % (35.3-44.9); Hemoglobin 13.3 g/dL (11.5-15.4); Immature Granulocytes % 0.5 % (0-4); Lymphocytes # 3.7 K/mcL (0.6-4.6); Lymphocytes % 22.5 %; Mean Corpuscular HGB Conc 33.1 g/dL (31.6-35.5); Mean Corpuscular Hemoglobin 30.9 pg (28.0-33.3); Mean Corpuscular Volume 93.5 fL (83.0-100.0); Mean Platelet Volume 11.1 fL (9.4-12.4); Monocytes % 6.3 %; Neutrophils # 11.5 K/mcL (1.6-8.9); Platelet Count 238 K/mcL (140-400); Red Cell Distribution Width 14.3 % (11.5-14.5); Segmented Neutrophils % 69.4 %
[2018-06-21 16:34] LABS: Prothrombin Time 10.9 Seconds (9.4-12.1)
[2018-06-21] MEDS: Nitroglycerin 0.4 MG TAB.SUBL SL PRN ×3 (16:35→16:47)
[2018-06-21 16:37] LABS: Activated Partial Thrombo Time 34.1 Seconds (26.0-36.0)
[2018-06-21 16:48] LABS: BUN/Creatinine Ratio 21 (6-26); Blood Urea Nitrogen 21 mg/dL (8-23); Calcium 11.1 mg/dL (8.6-10.3); Carbon Dioxide 24 mEq/L (23-29); Chloride 107 mEq/L (98-107); Glucose 149 mg/dL (70-105); Osmolality,Calculated 296 (280-300); Potassium 3.5 mEq/L (3.5-5.1); Sodium 140 mEq/L (136-145); Troponin I < 0.03 ng/mL (< 0.04); eGFR For Non-African Americans 57 (> 60)
--- NOTE | 2018-06-21 16:51 | Emergency Department Note ---
Disposition Clinical Impression: Accelerated hypertension Chest pain Qualifiers: Chest pain type: unspecified Qualified Code(s): R07.9 - Chest pain, unspecified Leukocytosis Qualifiers: Leukocytosis type: unspecified Qualified Code(s): D72.829 - Elevated white blood cell count, unspecified Disposition: Admitted As Inpatient Condition: Fair Referrals: Stefan Navarrete MD [Primary Care Provider] - Forms: ED Satisfaction Letter Chest Pain HPI - General Chief Complaint: ED Chest Pain Stated Complaint: chest pain into back Time Seen by Provider: 06/21/18 16:01 Source: family Mode of arrival: private vehicle Limitations: no limitations Vital Signs Reviewed: Yes Nursing Notes Reviewed: Yes - History of Present Illness HPI Narrative: 62-year-old female history of CAD status post 1 stent to the LAD 6 days ago, diabetes, hypertension who presents to the ER with a complaint of chest pain into her back. Pain started yesterday but intensified today. Describes it as sharp and radiating from her chest into her back. Reports she just recently had a left heart catheterization. This is pain similar to what caused her to have the heart catheterization. She reports mild shortness breath with this. No fev ers, cough, nausea or vomiting. No other complaints. Pt complaint: chest pain Onset (ago): day(s) Duration: gradually worsening Pain Location: substernal Severity: moderate Severity scale (1-10): 7 Quality: sharp Pain Radiation: back Improves with: nothing Worsens with: nothing Context: recent surgery (Left heart catheterization) Associated symptoms: Reports: dyspnea Treatments prior to arrival chest pain: none - Related Data On Oral Contraceptives: No Home Medications Medication Instructions Recorded Confirmed Zolpidem [Ambien] 10 mg PO HS 06/12/16 06/21/18 Cholecalciferol (Vitamin D3) 50,000 unit PO QWEEK 06/15/18 06/21/18 [Vitamin D3] Clopidogrel [Plavix] 75 mg PO DAILY 06/15/18 06/21/18 Metoprolol XL (24 HR) Succ [Toprol 100 mg PO DAILY 06/15/18 06/21/18 Xl] Pravastatin Sodium [Pravachol] 20 mg PO DAILY 06/15/18 06/21/18 Sertraline [Zoloft] 50 mg PO DAILY 06/15/18 06/21/18 Previous Rx's Medication Instructions Recorded amLODIPine [Norvasc] 10 mg PO DAILY #60 tab 11/26/16 Aspirin 81 mg PO DAILY #30 tab.chew 06/16/18 Isosorbide MONOnitrate (24 HR) 30 mg PO DAILY #30 tab.er.24h 06/16/18 [Imdur] Lisinopril [Zestril] 40 mg PO DAILY #30 tablet 06/16/18 Metformin HCl [Glucophage] 1,000 mg PO BID #0 06/16/18 hydroCHLOROthiazide 12.5 mg PO DAILY #15 tablet 06/16/18 [Hydrochlorothiazide] Allergies Allergy/AdvReac Type Severity Reaction Status Date / Time fentanyl Allergy Intermediate Swelling Verified 06/15/18 15:25 of Lip/Tongue/Throat acetaminophen [From Vicodin] AdvReac Nausea Verified 06/15/18 07:04 codeine AdvReac Itching Verified 11/23/16 21:44 gabapentin [From Neurontin] AdvReac Nausea Verified 06/15/18 07:04 hydrocodone [From Vicodin] AdvReac Nausea Verified 06/15/18 07:04 morphine AdvReac Itching Verified 06/15/18 07:04 oxycodone [From Percocet] AdvReac Itching Verified 11/23/16 21:44 propoxyphene [From Darvon] AdvReac Itching Verified 11/23/16 21:44 All systems ED: reviewed and negative except as stated. Constitutional: Denies: fever Cardiovascular: Reports: chest pain Respiratory: Reports: dyspnea. Denies: cough Gastrointestinal: Denies: abdominal pain, nausea, vomiting, diarrhea Chest Pain PMH - Past Medical History Medical history: Reports: asthma, coronary artery disease, diabetes, hypertension, kidney stones, other Surgical history: Reports: non-contributory, cholecystectomy, hysterectomy, other Psychiatric history: Reports: no psych history - Social History Smoking Status: Current every day smoker Alcohol use: Reports: none, occasionally Drug use: Reports: none, marijuana Physical Exam - General Limitations: no limitations General appearance: alert, in no apparent distress - Head Head exam: atraumatic, normocephalic, normal inspection - Eye Eye exam: Present: normal appearance - ENT ENT exam: normal exam - Neck Neck exam: Present: normal inspection - Chest Chest inspection: Present: normal inspection, symmetric chest wall rise - Respiratory Respiratory exam: Present: normal lung sounds bilaterally - Cardiovascular Cardiovascular exam: Present: regular rate, normal rhythm, normal heart sounds - Abdominal Exam Abdominal exam: Present: soft, Non-Tender. Absent: tenderness, distention, r igidity - Extremities Exam Extremities exam: Present: normal inspection, full ROM - Expanded Upper Extremity Exam Shoulder exam: Present: normal inspection, full ROM Arm exam: Present: normal inspection, full ROM Elbow exam: Present: normal inspection, full ROM Forearm/Wrist exam: Present: normal inspection, full ROM Hand exam: Present: normal inspection, full ROM Vascular exam: Normal: radial pulse - Expanded Lower Extremity Exam Hip/Pelvis exam: Present: normal inspection, full ROM Upper leg exam: Present: normal inspection, full ROM Knee exam: Present: normal inspection, full ROM Lower leg exam: Present: normal inspection, full ROM Ankle exam: Present: normal inspection, full ROM Foot/toe exam: Present: normal inspection, full ROM - Skin Skin exam: Present: warm, dry Course Course Narrative: Patient seen and examined. Vital signs reviewed. Her blood pressure is 180/130 during my assessment. Current concern is ACS versus dissection. We will obtain an EKG, CTA of the chest abdomen and pelvis for further evaluation, labs, nitroglycerin for pain and likely admission. - Reevaluation(s) Reevaluation #1: Imaging reviewed. No evidence of dissection. She remains hypertensive most recent reading 180/80. We are currently titrating up the nitroglycerin drip. Her pain is responsive to nitroglycerin but is worsening. We will give her some morphine as well. Plan to admit for unstable angina versus accelerated hypertension. Vital Signs Temperature 98.4 F 06/21/18 16:00 Pulse Rate 68 06/21/18 16:00 Respiratory Rate 15 06/21/18 16:00 Blood Pressure 183/100 06/21/18 16:00 O2 Sat by Pulse Oximetry 99 06/21/18 16:00 Temperature 98.4 F 06/21/18 16:00 Pulse Rate 65 06/21/18 18:50 Respiratory Rate 20 06/21/18 18:50 Blood Pressure 172/107 06/21/18 18:50 O2 Sat by Pulse Oximetry 98 06/21/18 18:50 Oxygen Delivery Oxygen Delivery Room Air Chest Pain - MDM Narrative Medical decision making narrative: 62-year-old female presenting with chest pain into her back. She is noted to be very hypertensive upon arrival. She has no EKG changes. Her CTA is negative for dissection. Initial troponin is negative as well. The patient was placed on a nitroglycerin infusion with improvement of her pain. Also tried treating this for hypertensive control. Patient given morphine for continued pain. She does have a leukocytosis of 16. Urinalysis added in addition. Plan to admit the patient to the hospitalist service. - Lab Data Lab results reviewed: Yes I reviewed the patient's lab results. Result diagrams: 06/21/18 16:14 06/21/18 16:14 Lab Results 06/21/18 06/21/18 06/21/18 Range/Units 16:14 16:14 16:14 WBC 16.6 H (4.3-11.1) K/mcL RBC 4.30 (3.82-4.97) M/mcL Hgb 13.3 (11.5-15.4) g/dL Hct 40.2 (35.3-44.9) % MCV 93.5 (83.0-100.0) fL MCH 30.9 (28.0-33.3) pg MCHC 33.1 (31.6-35.5) g/dL RDW 14.3 (11.5-14.5) % Plt Count 238 (140-400) K/mcL MPV 11.1 (9.4-12.4) fL Immature Gran % 0.5 (0-4) % Seg Neutrophils % 69.4 % Lymphocytes % 22.5 % Monocytes % 6.3 % Eosinophils % 0.9 % Basophils % 0.4 % Neutrophils # 11.5 H (1.6-8.9) K/mcL Lymphocytes # 3.7 (0.6-4.6) K/mcL Monocytes # 1.0 (0.0-1.3) K/mcL Eosinophils # 0.2 (0.0-0.6) K/mcL Basophils # 0.1 (0.0-0.2) K/mcL PT 10.9 (9.4-12.1) Seconds INR 1.0 APTT 34.1 (26.0-36.0) Seconds Sodium (136-145) mEq/L Potassium (3.5-5.1) mEq/L Chloride (98-107) mEq/L Carbon Dioxide (23-29) mEq/L BUN (8-23) mg/dL Creatinine (0.60-1.20) mg/dL Est GFR ( Amer) (> 60) Est GFR (Non-Af Amer) (> 60) BUN/Creatinine Ratio (6-26) Glucose (70-105) mg/dL Calculated Osmolality (280-300) Calcium (8.6-10.3) mg/dL Troponin I (< 0.04) ng/mL B-Natriuretic Peptide 95 (Less than 100) pg/mL 06/21/18 Range/Units 16:14 WBC (4.3-11.1) K/mcL RBC (3.82-4.97) M/mcL Hgb (11.5-15.4) g/dL Hct (35.3-44.9) % MCV (83.0-100.0) fL MCH (28.0-33.3) pg MCHC (31.6-35.5) g/dL RDW (11.5-14.5) % Plt Count (140-400) K/mcL MPV (9.4-12.4) fL Immature Gran % (0-4) % Seg Neutrophils % % Lymphocytes % % Monocytes % % Eosinophils % % Basophils % % Neutrophils # (1.6-8.9) K/mcL Lymphocytes # (0.6-4.6) K/mcL Monocytes # (0.0-1.3) K/mcL Eosinophils # (0.0-0.6) K/mcL Basophils # (0.0-0.2) K/mcL PT (9.4-12.1) Seconds INR APTT (26.0-36.0) Seconds Sodium 140 (136-145) mEq/L Potassium 3.5 (3.5-5.1) mEq/L Chloride 107 (98-107) mEq/L Carbon Dioxide 24 (23-29) mEq/L BUN 21 (8-23) mg/dL Creatinine 0.99 (0.60-1.20) mg/dL Est GFR ( Amer) > 60 (> 60) Est GFR (Non-Af Amer) 57 L (> 60) BUN/Creatinine Ratio 21 (6-26) Glucose 149 H (70-105) mg/dL Calculated Osmolality 296 (280-300) Calcium 11.1 H (8.6-10.3) mg/dL Troponin I < 0.03 (< 0.04) ng/mL B-Natriuretic Peptide (Less than 100) pg/mL - Radiology Data Radiology results reviewed: Yes I reviewed the patient's radiology results. CT Dissection 06/21/18 16:14 IMPRESSION: 1. No acute vascular injury identified. No evidence for aortic dissection. 2. Moderate atherosclerotic disease. 3. Mild mediastinal lymphadenopathy which is nonspecific and potentially may be reactive. Recommend interval follow-up to ensure stability. 4. No acute intrathoracic or intra-abdominal process identified. 5. Mild colonic diverticulosis without evidence for diverticulitis. 6. 3 mm nonobstructing right renal stone. 7. Mild nonspecific circumferential bladder wall thickening which potentially may be related to collapse. Recommend clinical correlation to exclude the possibility of cystitis. D/ / Alhaji Jean MD / Alhaji Jean MD Interpreting Provider: Alhaji Jean MD Chest X-Ray 06/21/18 16:14 IMPRESSION: Cardiomegaly with probable pulmonary venous hypertension. No infiltrate or edema D/ / Mikel Mckenzie MD / Mikel Mckenzie MD Interpreting Provider: Mikel Mckenzie MD - EKG Data EKG attestation: Yes I reviewed and interpreted this EKG. EKG results narrative: EKG demonstrates sinus rhythm with a rate of 67 bpm. Normal axis. Normal intervals. Normal R-wave progression. No gross ST elevations or depressions. No acute ischemic findings. No significant changes from previous EKG dated 06/16/18. Heart Score - Score History: Moderately Suspicious EKG: Normal Age: 45-65 Risk Factors: Equal/Greater than 3 risk factor or history of atherosclerotic disease Troponin: Less than normal limit HEART Score Total: 4 S.B.A.R. - S.B.A.R. Situation: Demographics, MOA Background: Presenting Complaint, Relevant PMH, Meds, & Allergies Assessment: Vital Signs, Course and respsone to treatment, Exam Concerns, Patient/Family Expectation, Pertinant Lab Results, Outstanding Labs Recommendation: Barrier(s) to disposition, Recommendation based on pending studies, treatments, or consults Wyatt Report Given to: Dr. Melvi Schneider Repor Time: 18:58
--- NOTE | 2018-06-21 17:13 | Emergency Department Note ---
Disposition Clinical Impression: Chest pain Qualifiers: Chest pain type: unspecified Qualified Code(s): R07.9 - Chest pain, unspecified Disposition: Admitted As Inpatient Condition: Fair Referrals: Stefan Navarrete MD [Primary Care Provider] - Forms: ED Satisfaction Letter Time of Disposition: 18:53 General Adult HPI - General Chief complaint: ED Chest Pain Stated complaint: chest pain into back Time Seen by Provider: 06/21/18 16:01 Source: family Mode of arrival: private vehicle Limitations: no limitations - History of Present Illness Pain Scale: 5 - Related Data Home Medications Medication Instructions Recorded Confirmed Zolpidem [Ambien] 10 mg PO HS 06/12/16 06/21/18 Cholecalciferol (Vitamin D3) 50,000 unit PO QWEEK 06/15/18 06/21/18 [Vitamin D3] Clopidogrel [Plavix] 75 mg PO DAILY 06/15/18 06/21/18 Metoprolol XL (24 HR) Succ [Toprol 100 mg PO DAILY 06/15/18 06/21/18 Xl] Pravastatin Sodium [Pravachol] 20 mg PO DAILY 06/15/18 06/21/18 Sertraline [Zoloft] 50 mg PO DAILY 06/15/18 06/21/18 Previous Rx's Medication Instructions Recorded amLODIPine [Norvasc] 10 mg PO DAILY #60 tab 11/26/16 Aspirin 81 mg PO DAILY #30 tab.chew 06/16/18 Isosorbide MONOnitrate (24 HR) 30 mg PO DAILY #30 tab.er.24h 06/16/18 [Imdur] Lisinopril [Zestril] 40 mg PO DAILY #30 tablet 06/16/18 Metformin HCl [Glucophage] 1,000 mg PO BID #0 06/16/18 hydroCHLOROthiazide 12.5 mg PO DAILY #15 tablet 06/16/18 [Hydrochlorothiazide] Allergies Allergy/AdvReac Type Severity Reaction Status Date / Time fentanyl Allergy Intermediate Swelling Verified 06/15/18 15:25 of Lip/Tongue/Throat acetaminophen [From Vicodin] AdvReac Nausea Verified 06/15/18 07:04 codeine AdvReac Itching Verified 11/23/16 21:44 gabapentin [From Neurontin] AdvReac Nausea Verified 06/15/18 07:04 hydrocodone [From Vicodin] AdvReac Nausea Verified 06/15/18 07:04 morphine AdvReac Itching Verified 06/15/18 07:04 oxycodone [From Percocet] AdvReac Itching Verified 11/23/16 21:44 propoxyphene [From Darvon] AdvReac Itching Verified 11/23/16 21:44 Constitutional: Denies: fever Cardiovascular: Reports: chest pain Respiratory: Reports: dyspnea. Denies: cough Gastrointestinal: Denies: abdominal pain, nausea, vomiting, diarrhea Past Medical History - Past Medical History Medical history: Reports: asthma, coronary artery disease, diabetes, hype rtension, kidney stones, other Surgical history: Reports: non-contributory, cholecystectomy, hysterectomy, other Psychiatric history: Reports: no psych history - Social History Smoking Status: Current every day smoker Smokeless Tobacco Status: No Alcohol use: Reports: none, occasionally Drug use: Reports: none, marijuana Physical Exam - General Limitations: no limitations General appearance: alert, in no apparent distress Course Vital Signs Temperature 98.4 F 06/21/18 16:00 Pulse Rate 68 06/21/18 16:00 Respiratory Rate 15 06/21/18 16:00 Blood Pressure 183/100 06/21/18 16:00 O2 Sat by Pulse Oximetry 99 06/21/18 16:00 Temperature 98.4 F 06/21/18 16:00 Pulse Rate 65 06/21/18 18:50 Respiratory Rate 20 06/21/18 18:50 Blood Pressure 172/107 06/21/18 18:50 O2 Sat by Pulse Oximetry 98 06/21/18 18:50 Oxygen Delivery Oxygen Delivery Room Air Medical Decision Making - Lab Data Result diagrams: 06/21/18 16:14 06/21/18 16:14 Lab Results 06/21/18 06/21/18 06/21/18 Range/Units 16:14 16:14 16:14 WBC 16.6 H (4.3-11.1) K/mcL RBC 4.30 (3.82-4.97) M/mcL Hgb 13.3 (11.5-15.4) g/dL Hct 40.2 (35.3-44.9) % MCV 93.5 (83.0-100.0) fL MCH 30.9 (28.0-33.3) pg MCHC 33.1 (31.6-35.5) g/dL RDW 14.3 (11.5-14.5) % Plt Count 238 (140-400) K/mcL MPV 11.1 (9.4-12.4) fL Immature Gran % 0.5 (0-4) % Seg Neutrophils % 69.4 % Lymphocytes % 22.5 % Monocytes % 6.3 % Eosinophils % 0.9 % Basophils % 0.4 % Neutrophils # 11.5 H (1.6-8.9) K/mcL Lymphocytes # 3.7 (0.6-4.6) K/mcL Monocytes # 1.0 (0.0-1.3) K/mcL Eosinophils # 0.2 (0.0-0.6) K/mcL Basophils # 0.1 (0.0-0.2) K/mcL PT 10.9 (9.4-12.1) Seconds INR 1.0 APTT 34.1 (26.0-36.0) Seconds Sodium (136-145) mEq/L Potassium (3.5-5.1) mEq/L Chloride (98-107) mEq/L Carbon Dioxide (23-29) mEq/L BUN (8-23) mg/dL Creatinine (0.60-1.20) mg/dL Est GFR ( Amer) (> 60) Est GFR (Non-Af Amer) (> 60) BUN/Creatinine Ratio (6-26) Glucose (70-105) mg/dL Calculated Osmolality (280-300) Calcium (8.6-10.3) mg/dL Troponin I (< 0.04) ng/mL B-Natriuretic Peptide 95 (Less than 100) pg/mL 06/21/18 Range/Units 16:14 WBC (4.3-11.1) K/mcL RBC (3.82-4.97) M/mcL Hgb (11.5-15.4) g/dL Hct (35.3-44.9) % MCV (83.0-100.0) fL MCH (28.0-33.3) pg MCHC (31.6-35.5) g/dL RDW (11.5-14.5) % Plt Count (140-400) K/mcL MPV (9.4-12.4) fL Immature Gran % (0-4) % Seg Neutrophils % % Lymphocytes % % Monocytes % % Eosinophils % % Basophils % % Neutrophils # (1.6-8.9) K/mcL Lymphocytes # (0.6-4.6) K/mcL Monocytes # (0.0-1.3) K/mcL Eosinophils # (0.0-0.6) K/mcL Basophils # (0.0-0.2) K/mcL PT (9.4-12.1) Seconds INR APTT (26.0-36.0) Seconds Sodium 140 (136-145) mEq/L Potassium 3.5 (3.5-5.1) mEq/L Chloride 107 (98-107) mEq/L Carbon Dioxide 24 (23-29) mEq/L BUN 21 (8-23) mg/dL Creatinine 0.99 (0.60-1.20) mg/dL Est GFR ( Amer) > 60 (> 60) Est GFR (Non-Af Amer) 57 L (> 60) BUN/Creatinine Ratio 21 (6-26) Glucose 149 H (70-105) mg/dL Calculated Osmolality 296 (280-300) Calcium 11.1 H (8.6-10.3) mg/dL Troponin I < 0.03 (< 0.04) ng/mL B-Natriuretic Peptide (Less than 100) pg/mL Attestation Statement - Attestation Attestation: I examined this patient and my medical decision-making was reviewed with the Resident Physician. I agree with the documented findings, disposition and treatment plan as described except to the extent set forth below. Patient presents to the ED with chief complaint of chest pain. Patient with chest pain radiating into her back. Onset last night. Has worsened today. Patient is status post a recent cardiac admission and stent placement. On examination she is awake and alert in no acute distress. Plan. Cardiac workup. Dissection study. Patient stabbing pain. It is improved on nitroglycerin. We will add morphine. No dissection. Concerning as she just had a stent placement. We will admit. CT Dissection 06/21/18 16:14 IMPRESSION: 1. No acute vascular injury identified. No evidence for aortic dissection. 2. Moderate atherosclerotic disease. 3. Mild mediastinal lymphadenopathy which is nonspecific and potentially may be reactive. Recommend interval follow-up to ensure stability. 4. No acute intrathoracic or intra-abdominal process identified. 5. Mild colonic diverticulosis without evidence for diverticulitis. 6. 3 mm nonobstructing right renal stone. 7. Mild nonspecific circumferential bladder wall thickening which potentially may be related to collapse. Recommend clinical correlation to exclude the possibility of cystitis. D/ / Alhaji Jean MD / Alhaji Jean MD Interpreting Provider: Alhaji Jean MD Chest X-Ray 06/21/18 16:14 IMPRESSION: Cardiomegaly with probable pulmonary venous hypertension. No infiltrate or edema D/ / Mikel Mckenzie MD / Mikel Mckenzie MD Interpreting Provider: Mikel Mckenzie MD
[2018-06-21] MEDS ORDERED: Nitroglycerin 25 MG/250 ML INFUS..BTL IVC SCH (17:15)
[2018-06-21] MEDS ORDERED: *HR* Morphine 2 MG/ML SYRINGE IVP ONE (18:26)
[2018-06-21] MEDS ORDERED: Ondansetron 4 MG/2 ML VIAL IVP ONE (19:00)
[2018-06-21 19:43] LABS: Bilirubin,Urine Negative (Negative); Blood,Urine Negative (Negative); Clarity,Urine Clear (Clear); Color,Urine Yellow (Yellow); Glucose,Urine (UA) Normal (Normal); Ketones,Urine Negative (Negative); Leukocyte Esterase,Urine Negative (Negative); Nitrite,Urine Negative (Negative); PH,Urine 6.5 pH Units (5.0-8.0); Protein,Urine Negative (Neg-Trace); Specific Gravity,Urine > 1.030 (1.010-1.025); Urobilinogen,Urine Normal (Normal)
[2018-06-21] MEDS: Ondansetron 4 MG/2 ML VIAL IVP PRN (21:16)
[2018-06-21] MEDS: *HR* Morphine 2 MG/ML SYRINGE IVP PRN (21:17)
[2018-06-21] MEDS ORDERED: *HR* Heparin 5,000 UNIT/ML VIAL IVP PRN ×2 (21:18)
[2018-06-21] MEDS ORDERED: *HR* Heparin 5,000 UNIT/ML VIAL IVP ONE (21:18)
[2018-06-21] MEDS ORDERED: Heparin 25,000 UNIT/250 ML D5W 25,000 UNIT/250 ML IV.SOLN IVC SCH (21:30)
[2018-06-21 21:56] LABS: Hematocrit 38.8 % (35.3-44.9); Hemoglobin 12.9 g/dL (11.5-15.4); Mean Corpuscular HGB Conc 33.2 g/dL (31.6-35.5); Mean Corpuscular Hemoglobin 31.8 pg (28.0-33.3); Mean Corpuscular Volume 95.6 fL (83.0-100.0); Mean Platelet Volume 11.5 fL (9.4-12.4); Platelet Count 221 K/mcL (140-400); Red Blood Count 4.06 M/mcL (3.82-4.97); Red Cell Distribution Width 14.3 % (11.5-14.5)
[2018-06-21 22:15] LABS: Albumin 4.1 g/dL (3.5-5.7); Albumin/Globulin Ratio 1.5 (1.1-2.2); Bilirubin,Indirect 0.4 mg/dL (0.0-1.2); Bilirubin,Total 0.4 mg/dL (0.3-1.0); Globulin 2.7 g/dL (2.4-3.5); Total Protein 6.8 g/dL (6.4-8.9)
[2018-06-21] MEDS ORDERED: *HR* Promethazine 25 MG/ML VIAL IVP PRN (22:17)
[2018-06-21] MEDS ORDERED: *HR* Dextrose 50 % in Water (Syg) 50 ML SYRINGE IVP PRN (22:17)
[2018-06-21] MEDS ORDERED: Naloxone 0.4 MG/ML INJ IVP PRN (22:17)
[2018-06-21] MEDS ORDERED: D5% in Water 1,000 ML IVC PRN (22:17)
[2018-06-21] MEDS ORDERED: Dextrose Gel 15 GM/37.5 ML TUBE PO PRN ×2 (22:17)
[2018-06-21] MEDS: Famotidine 20 MG/2 ML VIAL IVP SCH (23:07)
[2018-06-21] MEDS: 0.9 % Sodium Chloride w KCl 20 MEQ/1,000 ML MLS IVC SCH (23:08)
[2018-06-21] MEDS: Insulin LISPRO 300 UNITS/3 ML VIAL SQ SCH (23:50)
[2018-06-22] MEDS: Ondansetron 4 MG/2 ML VIAL IVP PRN ×2 (03:32→11:11)
[2018-06-22] MEDS: *HR* Morphine 2 MG/ML SYRINGE IVP PRN ×3 (03:32→11:11)
--- NOTE | 2018-06-22 04:39 | Internal Med History&Physical ---
Date of Encounter: 06/21/18 Time of Encounter: 22:00 Internal Medicine - H&P: HPI Chief complaint: chest pain Admitted From: Emergency Dept Plans for Post Hospital Care: Home History of present illness: Ms. Cheng is a 62 year [facility] of [facility], pressure, and pain radiating to her back. Patient had PTCA and stent just 6 days prior. In the ER, she had CT angiogram to rule out aortic dissection, which was negative. She was then placed on heparin, morphine, and nitro drip to control her chest pain. She was then admitted to hospitalist service. Upon my assessment of the patient, she still had some chest pain, but it was minimal compared to earlier upon presentation. She also had some epigastric pain on exam and upon further history. Regarding her atypical chest pain, she states it is identical to the chest pain she had prior to her heart catheterization and stent. She said after her angioplasty and stent placement, her chest pain resolved but it then recurred 2 days ago. She has been taking her cardiac medications religiously as directed. She has not missed any doses of her aspirin and/or Plavix. She denies any fevers, cough, shortness of br eath, vomiting, or diarrhea. Past Med Surg Social Fam HX - Past Medical History Attestation: Yes The following information was validated with the patient. Source: patient, old records reviewed Medical history: asthma, coronary artery disease, diabetes, hypertension, kidney stones Additional medical history: ANEMIA. KIDNEY PROBLEMS Psychiatric history: no psych history - Past Surgical History Surgical History: angioplasty/stent, cholecystectomy, hysterectomy, other Additional surgical history: Spinal TENS unit in place. ear surgery - Social History Smoking Status: Current every day smoker Packs per day: 1/2 Smokeless Tobacco Status: No Alcohol use: none, occasionally Drug use: none, marijuana Current living situation: Home, With Family Activity Level: Independent ambulation Recent Out of Country Travel Within the Last 8 Weeks: No - Family History Mother Hx Family Endocrine Disorder: Yes (Diabetes) Hx Family Neurologic Disorders: Yes (CVA) Father Hx Family Cancer: Yes (Pancreatic cancer) Grandmother Hx Family Cancer: Yes (Breast cancer) Internal Medicine - H&P: Meds Zolpidem [Ambien] 10 mg PO HS 06/12/16 [History] amLODIPine [Norvasc] 10 mg PO DAILY #60 tab 11/26/16 [Rx] Cholecalciferol (Vitamin D3) [Vitamin D3] 50,000 unit PO QWEEK 06/15/18 [Histor y] Clopidogrel [Plavix] 75 mg PO DAILY 06/15/18 [History] Metoprolol XL (24 HR) Succ [Toprol Xl] 100 mg PO DAILY 06/15/18 [History] Pravastatin Sodium [Pravachol] 20 mg PO DAILY 06/15/18 [History] Sertraline [Zoloft] 50 mg PO DAILY 06/15/18 [History] Aspirin 81 mg PO DAILY #30 tab.chew 06/16/18 [Rx] Isosorbide MONOnitrate (24 HR) [Imdur] 30 mg PO DAILY #30 tab.er.24h 06/16/18 [Rx] Lisinopril [Zestril] 40 mg PO DAILY #30 tablet 06/16/18 [Rx] Metformin HCl [Glucophage] 1,000 mg PO BID #0 06/16/18 [Rx] hydroCHLOROthiazide [Hydrochlorothiazide] 12.5 mg PO DAILY #15 tablet 06/16/18 [Rx] Allergy/AdvReac Type Severity Reaction Status Date / Time fentanyl Allergy Intermediate Swelling Verified 06/15/18 15:25 of Lip/Tongue/Throat acetaminophen [From Vicodin] AdvReac Nausea Verified 06/15/18 07:04 codeine AdvReac Itching Verified 11/23/16 21:44 gabapentin [From Neurontin] AdvReac Nausea Verified 06/15/18 07:04 hydrocodone [From Vicodin] AdvReac Nausea Verified 06/15/18 07:04 morphine AdvReac Itching Verified 06/15/18 07:04 oxycodone [From Percocet] AdvReac Itching Verified 11/23/16 21:44 propoxyphene [From Darvon] AdvReac Itching Verified 11/23/16 21:44 - Constitutional Constitutional: no chills, no fever(s), no night sweats - EENT Eyes: no blurry vision, no change in vision Ears: no ear pain, no tinnitus Nose, mouth and throat: no nasal congestion, no sinus pressure, no sore throat - Cardiovascular Cardiovascular ROS IM: chest pain, dyspnea on exertion, no edema, no lightheadedness, no orthopnea, no palpitations, no paroxysmal nocturnal dyspnea, no syncope - Respiratory Respiratory: no cough, no hemoptysis, no chest congestion, no excessive phlegm production, no change in phlegm color, no pain with cough - Gastrointestinal Gastrointestinal: abdominal pain (epigastric), nausea, no diarrhea, no heartburn, no hematemesis, no hematochezia, no melena, no vomiting - Genitourinary Genitourinary: no dysuria, no flank pain, no hematuria - Musculoskeletal Musculoskeletal ROS IM: no arthralgias, no back pain - Integumentary Integumentary IM: no rash, no jaundice - Neurological Neurological ROS: no disequilibrium, no dizziness, no focal weakness, no frequent falls, no headache(s) - Psychiatric Psychiatric: no anxiety, no depression - Endocrine Endocrine IM: no cold intolerance, no heat intolerance, no polydipsia, no polyuria - Allergic/Immunologic Allergic/Immunologic: no wheezing, no GI upset with certain foods - Constitutional Vitals: Temp Pulse Resp BP Pulse Ox 98.6 F 57 14 124/77 95 06/22/18 03:37 06/22/18 03:37 06/22/18 03:37 06/22/18 03:37 06/22/18 03:37 General appearance: Present: cooperative, mild distress, A&O X 3, pleasant, answers questions appropriately Exam: minimal chest pain now - Head Head exam: Present: atraumatic, normal inspection - Eye Eye exam: Present: EOMI, PERRL. Absent: scleral icterus Pupils: Present: normal accommodation - ENT ENT exam: Present: mucous membranes dry, normal exam, normal oropharynx - Neck Neck exam general surgery: Present: full ROM, supple, trachea midline. Absent: tenderness, nuchal rigidity, thyromegaly - Respiratory Respiratory exam: Present: CTAB. Absent: chest wall tenderness, rales, rhonchi, wheezes - Cardiovascular Cardiovascular exam: Present: RRR, +S1, +S2. Absent: diastolic murmur, systolic murmur - GI/Abdominal GI/Abdominal exam: Present: normal bowel sounds, tenderness (epigastric). Absent: guarding, hepatomegaly, mass, rebound, splenomegaly - Extremities Exam Extremities exam: Present: full ROM, normal capillary refill, warm, radial pulses palpable and symmetrical. Absent: calf tenderness, joint swelling, pedal edema, tenderness - Back Exam Back exam: Present: normal inspection. Absent: CVA tenderness (L), CVA tenderness (R) - Neurological Exam Neurological exam: Present: alert, CN II-XII intact, oriented X3, no focal deficits, strengths equal and symetr throughout - Psychiatric Psychiatric exam: Present: normal affect, normal mood - Skin Skin exam: Present: dry, intact, warm Internal Med - H&P Results - Labs CBC & Chem 7: 06/21/18 21:44 06/21/18 16:14 Labs: Short CBC 06/21/18 06/21/18 Range/Units 16:14 21:44 WBC 16.6 H 15.6 H (4.3-11.1) K/mcL Hgb 13.3 12.9 (11.5-15.4) g/dL Hct 40.2 38.8 (35.3-44.9) % Plt Count 238 221 (140-400) K/mcL Neutrophils # 11.5 H (1.6-8.9) K/mcL BMP 06/21/18 16:14 Sodium 140 Potassium 3.5 Chloride 107 Carbon Dioxide 24 BUN 21 Creatinine 0.99 Glucose 149 H Calcium 11.1 H Cardiac Enzymes 06/21/18 06/21/18 Range/Units 16:14 21:44 Troponin I < 0.03 < 0.03 (< 0.04) ng/mL Liver Function 06/21/18 Range/Units 21:44 Total Bilirubin 0.4 (0.3-1.0) mg/dL Direct Bilirubin 0.0 (0.0-0.2) mg/dL AST 12 L (13-39) Units/L ALT 14 (7-52) Units/L Alkaline Phosphatase 64 (34-104) Units/L Albumin 4.1 (3.5-5.7) g/dL Urine 06/21/18 Range/Units 19:35 Urine Color Yellow (Yellow) Urine Clarity Clear (Clear) Urine pH 6.5 (5.0-8.0) pH Units Ur Specific [place] > 1.030 H (1.010-1.025) Urine Protein Negative (Neg-Trace) mg/dL Urine Glucose (UA) Normal (Normal) mg/dL - EKG Data -: EKG Interpreted by Myself - EKG Data Prior EKG available for review: no EKG comments: 06/22/18 04:46 NSR; no acute ST-T changes - Impressions ITS Impressions CT Dissection 06/21/18 16:14 IMPRESSION: 1. No acute vascular injury identified. No evidence for aortic dissection. 2. Moderate atherosclerotic disease. 3. Mild mediastinal lymphadenopathy which is nonspecific and potentially may be reactive. Recommend interval follow-up to ensure stability. 4. No acute intrathoracic or intra-abdominal process identified. 5. Mild colonic diverticulosis without evidence for diverticulitis. 6. 3 mm nonobstructing right renal stone. 7. Mild nonspecific circumferential bladder wall thickening which potentially may be related to collapse. Recommend clinical correlation to exclude the possibility of cystitis. D/ / Alhaji Jean MD / Alhaji Jean MD Interpreting Provider: Alhaji Jean MD Chest X-Ray 06/21/18 16:14 IMPRESSION: Cardiomegaly with probable pulmonary venous hypertension. No infiltrate or edema D/ / Mikel Mckenzie MD / Mikel Mckenzie MD Interpreting Provider: Mikel Mckenzie MD - Diagnostic Studies Chest x-ray Status: image reviewed by me (cardiomegaly, otherwise negative) - Assessment and Plan (1) Unstable angina Current Visit: Yes Status: Acute Assessment and plan: 1. Patient on nitroglycerin drip and Morphine PRN for chest pain. 2. I added Heparin gtt per ACS protocol. 3. Continue ASA, Plavix. 4. Chest pain minimal now. 5. Will trend troponins, EKG's, and order ECHO. 6. Consult cardiology. (2) Type 2 diabetes mellitus Current Visit: Yes Status: Chronic Assessment and plan: 1. Will hold oral home meds. 2. Will place on SSI and monitor glucose closely. Qualifiers: Diabetes mellitus jail insulin use: without long term care pharmacist use Diabetes mellitus complication status: without complication Qualified Code(s): E11.9 - Type 2 diabetes mellitus without complications (3) Accelerated hypertension Current Visit: Yes Status: Acute Assessment and plan: 1. NTG gtt started for angina and BP control. 2. Hydralazine ordered PRN as well. 3. Continue home meds as appropriate. (4) CAD (coronary artery disease) Current Visit: Yes Status: Chronic Assessment and plan: 1. Continue home meds as appropriate. 2. Work up and cardiology consultation as above, Qualifiers: Coronary Disease-Associated Artery/Lesion type: [place] artery [place] vs. transplanted heart: [place] heart Associated angina: with unstable angina Qualified Code(s): I25.110 - Atherosclerotic heart disease of [place] coronary artery with unstable angina pectoris (5) DVT prophylaxis Current Visit: Yes Status: Acute Assessment and plan: 1. Heparin gtt as above.
[2018-06-22 04:50] LABS: Basophils # 0.1 K/mcL (0.0-0.2); Basophils % 0.4 %; Eosinophils # 0.2 K/mcL (0.0-0.6); Eosinophils % 1.2 %; Hematocrit 36.8 % (35.3-44.9); Hemoglobin 12.2 g/dL (11.5-15.4); Immature Granulocytes % 0.4 % (0-4); Lymphocytes # 3.3 K/mcL (0.6-4.6); Lymphocytes % 23.9 %; Mean Corpuscular HGB Conc 33.2 g/dL (31.6-35.5); Mean Corpuscular Hemoglobin 31.3 pg (28.0-33.3); Mean Corpuscular Volume 94.4 fL (83.0-100.0); Mean Platelet Volume 11.3 fL (9.4-12.4); Monocytes # 1.1 K/mcL (0.0-1.3); Monocytes % 7.8 %; Neutrophils # 9.1 K/mcL (1.6-8.9); Platelet Count 226 K/mcL (140-400); Red Cell Distribution Width 14.6 % (11.5-14.5); Segmented Neutrophils % 66.3 %
[2018-06-22 04:57] LABS: Alanine Aminotransferase 12 Units/L (7-52); Albumin 3.8 g/dL (3.5-5.7); Albumin/Globulin Ratio 1.4 (1.1-2.2); Alkaline Phosphatase 57 Units/L (34-104); Aspartate Amino Transferase 15 Units/L (13-39); BUN/Creatinine Ratio 18 (6-26); Bilirubin,Total 0.3 mg/dL (0.3-1.0); Blood Urea Nitrogen 18 mg/dL (8-23); Calcium 10.2 mg/dL (8.6-10.3); Carbon Dioxide 23 mEq/L (23-29); Chloride 110 mEq/L (98-107); Chol/HDL Ratio 3.6 (0-4.9); Cholesterol 135 mg/dL (< 200); Globulin 2.7 g/dL (2.4-3.5); Glucose 121 mg/dL (70-105); HDL Cholesterol 38 mg/dL (40-59); LDL Cholesterol,Calculated 67 mg/dL (0-99); Magnesium 1.7 mg/dL (1.6-2.6); Osmolality,Calculated 295 (280-300); Potassium 4.3 mEq/L (3.5-5.1); Sodium 141 mEq/L (136-145); Total Protein 6.5 g/dL (6.4-8.9); Triglycerides 148 mg/dL (< 150); eGFR For Non-African Americans 57 (> 60)
[2018-06-22] MEDS: Insulin LISPRO 300 UNITS/3 ML VIAL SQ SCH ×3 (05:58→16:50)
[2018-06-22] MEDS: Famotidine 20 MG/2 ML VIAL IVP SCH (06:10)
--- NOTE | 2018-06-22 08:42 | Internal Med Progress Note ---
Hospitalist Progress Note - Encounter Date of Encounter: 06/22/18 Time of Encounter: 08:42 - Subjective Interval History: Patient seen and examined this morning at bedside. No acute overnight events. Patient currently chest pain-free. Denies any difficulty breathing, abdominal pain back pain urinary or bowel complaints. - Exam Vitals: Temp Pulse Resp BP Pulse Ox 98.1 F 64 18 174/99 99 06/22/18 07:00 06/22/18 07:00 06/22/18 07:00 06/22/18 07:00 06/22/18 07:00 Exam: General: In no acute distress. Obese Respiratory exam: CTAB. no accessory muscle use, rales, rhonchi, wheezes Cardiovascular exam: RRR, +S1, +S2. no murmur, gallop, rubs. GI/Abdominal exam: Non-tender, obese, Non-distended, soft, no peritoneal signs. Extremities exam: no pedal edema, pulses palpable in b/l lower extremities. no calf tenderness Neurological exam: CN II-XII intact, AO X3, no focal deficits. Skin exam: No skin rash note - Assessment and Plan (1) Accelerated hypertension Current Visit: Yes Status: Acute (2) DVT prophylaxis Current Visit: Yes Status: Acute (3) CAD (coronary artery disease) Current Visit: Yes Status: Chronic (4) Unstable angina Current Visit: Yes Status: Acute (5) Type 2 diabetes mellitus Current Visit: Yes Status: Chronic - Summary of Assessment and Plan Summary of Assessment and Plan: chest pain - started on heparin drip for unstable angina. - Also started on nitroglycerin drip for accelerated hypertension . Now slightly better control. - c/w ASA, Plavix. - troponin unremarkable. EKG with artifact. - f/u ECHO. - Cardiology consulted given recent PTCA with JUAN. Patient compliant with medications Type 2 diabetes mellitus - hold oral home meds. - c/w SSI and accuchecks Accelerated hypertension - c/w nitro drip and home lisinopril, amlodipine, metoprolol - montior vitals q4h CAD - continue home medication. DVT prophylaxis - on Heparin gtt - Time Spent with Patient Total time spent is greater than 50% in coordination of care (as documented) at patient's floor/unit and/or counseling patient: Internal Medicine: Result - Labs CBC & Chem 7: 06/22/18 04:31 06/22/18 04:20 Labs: Short CBC 06/21/18 06/21/18 06/22/18 Range/Units 16:14 21:44 04:31 WBC 16.6 H 15.6 H 13.7 H (4.3-11.1) K/mcL Hgb 13.3 12.9 12.2 (11.5-15.4) g/dL Hct 40.2 38.8 36.8 (35.3-44.9) % Plt Count 238 221 226 (140-400) K/mcL Neutrophils # 11.5 H 9.1 H (1.6-8.9) K/mcL BMP 06/21/18 06/22/18 16:14 04:20 Sodium 140 141 Potassium 3.5 4.3 Chloride 107 110 H Carbon Dioxide 24 23 BUN 21 18 Creatinine 0.99 0.99 Glucose 149 H 121 H Calcium 11.1 H 10.2 Cardiac Enzymes 06/21/18 06/21/18 06/22/18 Range/Units 16:14 21:44 04:20 Troponin I < 0.03 < 0.03 < 0.03 (< 0.04) ng/mL Liver Function 06/21/18 06/22/18 Range/Units 21:44 04:20 Total Bilirubin 0.4 0.3 (0.3-1.0) mg/dL Direct Bilirubin 0.0 (0.0-0.2) mg/dL AST 12 L 15 (13-39) Units/L ALT 14 12 (7-52) Units/L Alkaline Phosphatase 64 57 (34-104) Units/L Albumin 4.1 3.8 (3.5-5.7) g/dL Urine 06/21/18 Range/Units 19:35 Urine Color Yellow (Yellow) Urine Clarity Clear (Clear) Urine pH 6.5 (5.0-8.0) pH Units Ur Specific [place] > 1.030 H (1.010-1.025) Urine Protein Negative (Neg-Trace) mg/dL Urine Glucose (UA) Normal (Normal) mg/dL - ABG Interpretation ABG results: PT/INR, D-dimer PT 11.0 Seconds (9.4-12.1) 06/21/18 21:44 - Impressions Impressions CT Dissection 06/21/18 16:14 IMPRESSION: 1. No acute vascular injury identified. No evidence for aortic dissection. 2. Moderate atherosclerotic disease. 3. Mild mediastinal lymphadenopathy which is nonspecific and potentially may be reactive. Recommend interval follow-up to ensure stability. 4. No acute intrathoracic or intra-abdominal process identified. 5. Mild colonic diverticulosis without evidence for diverticulitis. 6. 3 mm nonobstructing right renal stone. 7. Mild nonspecific circumferential bladder wall thickening which potentially may be related to collapse. Recommend clinical correlation to exclude the possibility of cystitis. D/ / Alhaji Jean MD / Alhaji Jean MD Interpreting Provider: Alhaji Jean MD Chest X-Ray 06/21/18 16:14 IMPRESSION: Cardiomegaly with probable pulmonary venous hypertension. No infiltrate or edema D/ / Mikel Mckenzie MD / Mikel Mckenzie MD Interpreting Provider: Mikel Mckenzie MD Consult Discharge Plan - Plan Referrals: Stefan Navarrete MD [Primary Care Provider] - (3) CAD (coronary artery disease) Qualifiers: Coronary Disease-Associated Artery/Lesion type: [place] artery [place] vs. transplanted heart: [place] heart Associated angina: with unstable angina Qualified Code(s): I25.110 - Atherosclerotic heart disease of [place] coronary artery with unstable angina pectoris (5) Type 2 diabetes mellitus Qualifiers: Diabetes mellitus correction insulin use: without correction use Diabetes mellitus complication status: without complication Qualified Code(s): E11.9 - Type 2 diabetes mellitus without complications
[2018-06-22] MEDS ORDERED: amLODIPine 5 MG TABLET PO SCH (09:00)
[2018-06-22] MEDS ORDERED: Aspirin 81 MG TAB.CHEW PO SCH (09:00)
[2018-06-22] MEDS ORDERED: Metoprolol XL (24 HR) Succ 50 MG TAB.ER.24H PO SCH (09:00)
[2018-06-22] MEDS ORDERED: Lisinopril 20 MG TABLET PO SCH (09:00)
[2018-06-22 09:21] LABS: Estimated Average Glucose 166 mg/dl; Hemoglobin A1C 7.4 %
[2018-06-22] MEDS: 0.9 % Sodium Chloride w KCl 20 MEQ/1,000 ML MLS IVC SCH (09:29)
--- NOTE | 2018-06-22 09:35 | Cardiology Consult Note ---
<Neto Connell - Last Filed: 06/22/18 13:00> Date of Encounter: 06/22/18 Time of Encounter: 09:34 Assessment and Plan (1) Chest pain Current Visit: Yes Status: Resolved Not currently experiencing chest pain EKG without ischemic changes Troponins negative x3 7 days s/p stent to mid LAD CTA chest/abdomen/pelvis with dissection protocol was negative. Pt was on Heparin and Nitro drips, however during this encounter did not see Nitro drip hanging. However this chest pain is retrosternal/epigastric in nature and reproducible on palpation. ACS workup negative thus far and suspicion is low. Suspect related to GI cause. Pt does admit to history of GERD and was not on PPI at admission. However she was give IV H2 annabelle. Will stop Heparin and Nitro drips at this time. Continue ASA and plavix. GI cocktail BID PPI Echo currently pending - await results. Cardiology will sign off at this time. Please do not hesitate to call with any new or further questions. Thank you for involving us in the care of this patient. Qualifiers: Chest pain type: unspecified Qualified Code(s): R07.9 - Chest pain, unspecified (2) GERD (gastroesophageal reflux disease) Current Visit: Yes Status: Acute Admits to hx Was on Famotidine BID IV GI cocktail BID ppi as above Qualifiers: Esophagitis presence: esophagitis presence not specified Qualified Code(s): K21.9 - Gastro-esophageal reflux disease without esophagitis (3) CAD (coronary artery disease) Current Visit: Yes Status: Chronic 7 day s/p stent to mid-LAD Continue daily ASA, Plavix, Metoprolol, and Imdur. Of note pt was previously on a Low-intensity statin with Pravastatin 20mg daily, however ASCVD risk calculation recommends high intensity statin. Will start Atorvastatin 40mg daily. Recommend continuation of this upon discharge. Qualifiers: Coronary Disease-Associated Artery/Lesion type: [place] artery [place] vs. transplanted heart: [place] heart Associated angina: with unstable angina Qualified Code(s): I25.110 - Atherosclerotic heart disease of [place] coronary artery with unstable angina pectoris (4) Diabetes mellitus with diabetic neuropathy, with long-term current use of insulin Current Visit: Yes Status: Chronic Management per primary Qualifiers: Diabetes mellitus type: type 2 Qualified Code(s): E11.40 - Type 2 diabetes mellitus with diabetic neuropathy, unspecified; Z79.4 - retirement (current) use of insulin (5) Tobacco abuse Current Visit: Yes Status: Chronic Reports continuing to smoke approximately 1/2ppd Educated patient extensively on the importance of smoking cessation (6) Obesity Current Visit: Yes Status: Chronic Chronic issue Qualifiers: Obesity type: unspecified obesity type Obesity classification: adult class 3 (BMI >= 40) Serious obesity comorbidity presence: with serious comorbidity Body mass index: BMI 40.0-44.9 Qualified Code(s): E66.01 - Morbid (severe) obesity due to excess calories; Z68.41 - Body mass index (BMI) 40.0-44.9, adult Discussion w patient/family: The assessment and plan as outlined above was discussed with the patient and/or family members who expressed understanding and agreement. All questions were answered. Thank you for involving us in the care of your patient. Please call with any questions. History of Present Illness Consult date: 06/21/18 Requesting physician: Mejia Key Consult reason: Unstable angina Chief complaint: Chest Pain History of present illness: Ms. Cheng is a 62 year old female with PMH of asthma, CAD s/p 1 stent to the LAD 7 days ago, DM2, HTN, and kidney stones. She presented to the ED on 06/21 complaining of chest pain, and pressure radiating directly into her back. CXR from the ED revealed cardiomegaly with probable pumonary venous hypertension without infiltrate or edema. CTA chest/abdomen/pelvis with dissection protocol was negative for dissection or acute vascular injury. EKG was without ischemic changes. Serial troponins negative. Pt seen and examined at bedside. Denies any current chest pain, but states she feels like "it is about to come back". Describes the pain as sharp and points to the epigastrium. States it radiates straight to her back. Denies any accompanying shortness of breath, nausea, vomiting, headache, numbness, or tingling. Past Med Surg Social Fam HX - Past Medical History Medical history: asthma, coronary artery disease, diabetes, hypertension, kidney stones Additional medical history: ANEMIA. KIDNEY PROBLEMS Psychiatric history: no psych history - Past Surgical History Surgical History: angioplasty/stent, cholecystectomy, hysterectomy, other Additional surgical history: Spinal TENS unit in place. ear surgery - Social History Smoking Status: Current every day smoker Packs per day: 1/2 Smokeless Tobacco Status: No Alcohol use: none, occasionally Drug use: none, marijuana - Family History Mother Hx Family Endocrine Disorder: Yes (Diabetes) Hx Family Neurologic Disorders: Yes (CVA) Father Hx Family Cancer: Yes (Pancreatic cancer) Grandmother Hx Family Cancer: Yes (Breast cancer) Medications and Allergies Zolpidem [Ambien] 10 mg PO HS PRN 06/12/16 [History] amLODIPine [Norvasc] 10 mg PO DAILY #60 tab 11/26/16 [Rx] Cholecalciferol (Vitamin D3) [Vitamin D3] 50,000 unit PO FR 06/15/18 [History] Clopidogrel [Plavix] 75 mg PO DAILY 06/15/18 [History] Pravastatin Sodium [Pravachol] 20 mg PO DAILY 06/15/18 [History] Sertraline [Zoloft] 50 mg PO DAILY 06/15/18 [History] Aspirin 81 mg PO DAILY #30 tab.chew 06/16/18 [Rx] Isosorbide MONOnitrate (24 HR) [Imdur] 30 mg PO DAILY #30 tab.er.24h 06/16/18 [Rx] Lisinopril [Zestril] 40 mg PO DAILY #30 tablet 06/16/18 [Rx] Metformin HCl [Glucophage] 1,000 mg PO BID #0 06/16/18 [Rx] hydroCHLOROthiazide [Hydrochlorothiazide] 12.5 mg PO DAILY #15 tablet 06/16/18 [Rx] ALPRAZolam [Xanax 0.5 MG Tablet] 0.25 - 0.5 mg PO BID PRN 06/22/18 [History] Albuterol Sulfate [Proair Hfa] 2 puff IH Q4H PRN 06/22/18 [History] Metoprolol Succinate [Toprol Xl] 150 mg PO DAILY 06/22/18 [History] Allergy/AdvReac Type Severity Reaction Status Date / Time fentanyl Allergy Intermediate Swelling Verified 06/22/18 10:10 of Lip/Tongue/Throat acetaminophen [From Vicodin] AdvReac Nausea Verified 06/22/18 10:10 codeine AdvReac Itching Verified 06/22/18 10:10 gabapentin [From Neurontin] AdvReac Nausea Verified 06/22/18 10:10 hydrocodone [From Vicodin] AdvReac Nausea Verified 06/22/18 10:10 morphine AdvReac Itching Verified 06/22/18 10:10 oxycodone [From Percocet] AdvReac Itching Verified 06/22/18 10:10 propoxyphene [From Darvon] AdvReac Itching Verified 06/22/18 10:10 All Systems Review: The remainder of the systems were reviewed and are negative - Constitutional Constitutional: no chills, no fever(s), no headache(s), no weakness - EENT Eyes: no blurred vision, no loss of vision - Cardiovascular Cardiovascular: chest pain at rest, no chest pain with exertion, no diaphoresis, no dyspnea at rest, no dyspnea on exertion, no leg edema, no lightheadedness, no orthopnea, no palpitations, no paroxysmal nocturnal dyspnea, no syncope - Respiratory Respiratory: no cough, no dyspnea - Gastrointestinal Gastrointestinal: no abdominal pain, no constipation, no diarrhea, no nausea - Genitourinary Genitourinary: no dysuria, no hematuria - Musculoskeletal Musculoskeletal: no arthralgias, no muscle weakness, no myalgias - Integumentary Integumentary: no erythema, no rash, no unusual bruising - Neurological Neurological: no dizziness, no numbness, no syncope, no tingling - Hematological/Lymphatic Hematologic/Lymphatic: no easy bleeding, no easy bruising Physical Examination Vital Signs, Last 4 Hours Temp Pulse Resp BP Pulse Ox 06/22/18 09:00 54 140/66 06/22/18 08:44 59 179/80 06/22/18 07:00 98.1 F 64 18 174/99 99 General: Conversant, No Apparent Distress HEENT: Atraumatic, Normocephaly, Mucus Membranes Moist Neck: No JVD, Normal carotid pulses Cardiac: Reg Rate and Rhythm, Normal S1 and S2, No Murmur Lungs: Normal Breath Sounds, No Wheeze, Rales, Rhonchi Neuro: Alert and responsive, No focal deficits noted Abdomen: Soft, Other (tender to epigastrium ) Skin: No rashes noted on visualized skin Musculoskeletal: No Chest Wall Tenderness Extremities: No Clubbing, No Cyanosis, No Edema, Normal Pulses Results 06/22/18 04:31 06/22/18 04:20 Lab Results 06/21/18 06/21/18 06/21/18 16:14 16:14 16:14 WBC 16.6 H Hgb 13.3 Hct 40.2 Plt Count 238 INR 1.0 APTT 34.1 Sodium Potassium Chloride Carbon Dioxide BUN Creatinine Glucose Calcium Magnesium Total Bilirubin AST ALT Alkaline Phosphatase Troponin I B-Natriuretic Peptide 95 Amylase Lipase 06/21/18 06/21/18 06/21/18 16:14 21:44 21:44 WBC 15.6 H Hgb 12.9 Hct 38.8 Plt Count 221 INR 1.0 APTT Sodium 140 Potassium 3.5 Chloride 107 Carbon Dioxide 24 BUN 21 Creatinine 0.99 Glucose 149 H Calcium 11.1 H Magnesium Total Bilirubin AST ALT Alkaline Phosphatase Troponin I < 0.03 B-Natriuretic Peptide Amylase Lipase 06/21/18 06/21/18 06/22/18 21:44 21:44 04:20 WBC Hgb Hct Plt Count INR APTT Sodium 141 Potassium 4.3 Chloride 110 H Carbon Dioxide 23 BUN 18 Creatinine 0.99 Glucose 121 H Calcium 10.2 Magnesium 1.7 Total Bilirubin 0.4 0.3 AST 12 L 15 ALT 14 12 Alkaline Phosphatase 64 57 Troponin I < 0.03 B-Natriuretic Peptide Amylase 44 Lipase 28 06/22/18 06/22/18 04:20 04:31 WBC 13.7 H Hgb 12.2 Hct 36.8 Plt Count 226 INR APTT Sodium Potassium Chloride Carbon Dioxide BUN Creatinine Glucose Calcium Magnesium Total Bilirubin AST ALT Alkaline Phosphatase Troponin I < 0.03 B-Natriuretic Peptide Amylase Lipase - Imaging and Cardiology Chest Xray: report reviewed, image reviewed Other Results: CTA chest/abdomen/pelvis images and report reviewed - EKG Interpretation EKG results cardiology: personally reviewed, normal ECG, sinus rhythm, no diagnostic ischemia Consult Discharge Plan - Plan Referrals: Stefan Navarrete MD [Primary Care Provider] - 06/30/18 2:00 pm <Laura Gould - Last Filed: 06/22/18 14:22> Date of Encounter: 06/22/18 - Attending Attestation I independently examined this patient and my medical decision-making was reviewed with the Resident Physician. I agree with the documented findings, disposition and treatment plan. Ms. Cheng presents with atypical chest discomfort. Troponinx3 negative. No new ECG changes when compared to old. Denies missing any doses of DAPT. Exam demonstrates reproducible discomfort when palpating the mid epigastrum - suspect GI etiology. Recommend trial of GI cocktail and starting PPI. Continue DAPT given recent PCI. Blood pressure control. Will sign off at this time. Please call with questions. Assessment and Plan Discussion w patient/family: The assessment and plan as outlined above was discussed with the patient and/or family members who expressed understanding and agreement. All questions were a nswered. Thank you for involving us in the care of your patient. Please call with any questions. History of Present Illness History of present illness: Ms. Cheng is a 62 year old female All Systems Review: The remainder of the systems were reviewed and are negative Physical Examination Vital Signs, Last 4 Hours Temp Pulse Resp BP Pulse Ox 06/22/18 11:39 63 136/61 06/22/18 11:17 59 173/99 98 06/22/18 11:05 98.6 F 54 18 184/113 96 Results 06/22/18 04:31 06/22/18 04:20 Lab Results 06/21/18 06/21/18 06/21/18 16:14 16:14 16:14 WBC 16.6 H Hgb 13.3 Hct 40.2 Plt Count 238 INR 1.0 APTT 34.1 Sodium Potassium Chloride Carbon Dioxide BUN Creatinine Glucose Calcium Magnesium Total Bilirubin AST ALT Alkaline Phosphatase Troponin I B-Natriuretic Peptide 95 Amylase Lipase 06/21/18 06/21/18 06/21/18 16:14 21:44 21:44 WBC 15.6 H Hgb 12.9 Hct 38.8 Plt Count 221 INR 1.0 APTT Sodium 140 Potassium 3.5 Chloride 107 Carbon Dioxide 24 BUN 21 Creatinine 0.99 Glucose 149 H Calcium 11.1 H Magnesium Total Bilirubin AST ALT Alkaline Phosphatase Troponin I < 0.03 B-Natriuretic Peptide Amylase Lipase 06/21/18 06/21/18 06/22/18 21:44 21:44 04:20 WBC Hgb Hct Plt Count INR APTT Sodium 141 Potassium 4.3 Chloride 110 H Carbon Dioxide 23 BUN 18 Creatinine 0.99 Glucose 121 H Calcium 10.2 Magnesium 1.7 Total Bilirubin 0.4 0.3 AST 12 L 15 ALT 14 12 Alkaline Phosphatase 64 57 Troponin I < 0.03 B-Natriuretic Peptide Amylase 44 Lipase 28 06/22/18 06/22/18 04:20 04:31 WBC 13.7 H Hgb 12.2 Hct 36.8 Plt Count 226 INR APTT Sodium Potassium Chloride Carbon Dioxide BUN Creatinine Glucose Calcium Magnesium Total Bilirubin AST ALT Alkaline Phosphatase Troponin I < 0.03 B-Natriuretic Peptide Amylase Lipase
[2018-06-22] MEDS ORDERED: GI Cocktail 40 ML EACH PO ONE (11:53)
[2018-06-22] MEDS ORDERED: *HR* Heparin 5,000 UNIT/ML VIAL SQ SCH (14:00)
[2018-06-22 16:32] VITALS: BP 146/61
--- NOTE | 2018-06-22 17:24 | Electrocardiograph Report ---
[address] [address] Test Date: 2018-06-22 Pat Name: Vivek Cheng Department: 110 Room: 2N07 Gender: F Elevator Erector: [place] : 1955 Requested By: Mejia Key Order Number: [id number] Reading MD: Laura Gould Measurements Intervals [place] Rate: 62 P: -84 NH: 366 QRS: 39 QRSD: 83 T: 62 QT: 404 QTc: 409 Interpretive Statements Normal sinus rhythm Artifact Electronically Signed On 06-22-2018 17:22:14 EDT by Laura Gould
--- NOTE | 2018-06-22 17:45 | Electrocardiograph Report ---
[address] [address] Test Date: 2018-06-21 Pat Name: Vivek Cheng Department: 110 Room: 2N07 Gender: F Educational Interpreter: [place] : 1955 Requested By: Mejia Key Order Number: [id number] Reading MD: Laura Gould Measurements Intervals [place] Rate: 57 P: -25 NH: 366 QRS: 47 QRSD: 108 T: 68 QT: 429 QTc: 422 Interpretive Statements Normal sinus rhythm Artifact Electronically Signed On 06-22-2018 17:43:38 EDT by Laura Gould
--- NOTE | 2018-06-22 18:26 | Discharge Summary ---
- NOTES TO OUTPATIENT PROVIDER Notes to Outpatient Provider: Patient will need close follow up for BP controll Orders not resulted at time of discharge: Pending orders 06/21/18 16:14 ECG 12 lead ECG [ECG] Stat Date of Encounter: 06/23/18 Time of Encounter: 18:23 - Discharge Diagnosis (1) Chest pain Priority: Primary Status: Resolved Qualifiers: Chest pain type: unspecified Qualified Code(s): R07.9 - Chest pain, unspecified (2) Tobacco abuse Priority: Secondary Status: Chronic (3) Diabetes mellitus with diabetic neuropathy, with long-term current use of insulin Priority: Secondary Status: Chronic Qualifiers: Diabetes mellitus type: type 2 Qualified Code(s): E11.40 - Type 2 diabetes mellitus with diabetic neuropathy, unspecified; Z79.4 - detention (current) use of insulin (4) CAD (coronary artery disease) Priority: Secondary Status: Chronic Qualifiers: Coronary Disease-Associated Artery/Lesion type: [place] artery [place] vs. transplanted heart: [place] heart Associated angina: with unstable angina Qualified Code(s): I25.110 - Atherosclerotic heart disease of [place] coronary artery with unstable angina pectoris (5) Obesity Priority: Secondary Status: Chronic Qualifiers: Obesity type: unspecified obesity type Obesity classification: adult class 3 (BMI >= 40) Serious obesity comorbidity presence: with serious comorbidity Body mass index: BMI 40.0-44.9 Qualified Code(s): E66.01 - Morbid (severe) obesity due to excess calories; Z68.41 - Body mass index (BMI) 40.0-44.9, adult (6) GERD (gastroesophageal reflux disease) Priority: Primary Status: Acute Qualifiers: Esophagitis presence: esophagitis presence not specified Qualified Code(s): K21.9 - Gastro-esophageal reflux disease without esophagitis Hospital course: Ms. Cheng is a 62 year old female with PMHx of CAD, DM, HTN, who recently had cardiac stent placed to [facility] a week ago came in with complain of chest pain radiating to back. Patient had CTA for aortic dissection which was negative. She was started on heparin drip for unstable angina and nitro drip for blood pressure control. Cardiology was consulted, who deemed chest pain to be related to GERD. ECHO did not show any wall motion abnormality. She was counselled on weight loss and smoking cessation. Her statin was switch to high intensity on discharge. She will follow up with PCP in 1-2 weeks. Discharge discussed with: patient, family, nurse - Time Spent with Patient Total time spent providing and/or coordinating discharge services: Time spent: Greater than 30 minutes - Discharge Medications Prescriptions: New Atorvastatin [Lipitor] 40 mg PO HS 30 Days #30 tablet Omeprazole [PriLOSEC] 40 mg PO BIDAC 15 Days #30 capsule.dr Continue Zolpidem [Ambien] 10 mg PO HS PRN PRN Reason: Insomnia amLODIPine [Norvasc] 10 mg PO DAILY #60 tab Cholecalciferol (Vitamin D3) [Vitamin D3] 50,000 unit PO FR Sertraline [Zoloft] 50 mg PO DAILY Clopidogrel [Plavix] 75 mg PO DAILY Aspirin 81 mg PO DAILY #30 tab.chew Lisinopril [Zestril] 40 mg PO DAILY #30 tablet Metformin HCl [Glucophage] 1,000 mg PO BID #0 hydroCHLOROthiazide [Hydrochlorothiazide] 12.5 mg PO DAILY #15 tablet Isosorbide MONOnitrate (24 HR) [Imdur] 30 mg PO DAILY #30 tab.er.24h Albuterol Sulfate [Proair Hfa] 2 puff IH Q4H PRN PRN Reason: Shortness Of Breath ALPRAZolam [Xanax 0.5 MG Tablet] 0.25 - 0.5 mg PO BID PRN PRN Reason: Anxiety Metoprolol Succinate [Toprol Xl] 150 mg PO DAILY Discontinued Pravastatin Sodium [Pravachol] 20 mg PO DAILY Home Medications: Zolpidem [Ambien] 10 mg PO HS PRN 06/12/16 [History] amLODIPine [Norvasc] 10 mg PO DAILY #60 tab 11/26/16 [Rx] Cholecalciferol (Vitamin D3) [Vitamin D3] 50,000 unit PO FR 06/15/18 [History] Clopidogrel [Plavix] 75 mg PO DAILY 06/15/18 [History] Sertraline [Zoloft] 50 mg PO DAILY 06/15/18 [History] Aspirin 81 mg PO DAILY #30 tab.chew 06/16/18 [Rx] Isosorbide MONOnitrate (24 HR) [Imdur] 30 mg PO DAILY #30 tab.er.24h 06/16/18 [Rx] Lisinopril [Zestril] 40 mg PO DAILY #30 tablet 06/16/18 [Rx] Metformin HCl [Glucophage] 1,000 mg PO BID #0 06/16/18 [Rx] hydroCHLOROthiazide [Hydrochlorothiazide] 12.5 mg PO DAILY #15 tablet 06/16/18 [Rx] ALPRAZolam [Xanax 0.5 MG Tablet] 0.25 - 0.5 mg PO BID PRN 06/22/18 [History] Albuterol Sulfate [Proair Hfa] 2 puff IH Q4H PRN 06/22/18 [History] Atorvastatin [Lipitor] 40 mg PO HS 30 Days #30 tablet 06/22/18 [Rx] Metoprolol Succinate [Toprol Xl] 150 mg PO DAILY 06/22/18 [History] Omeprazole [PriLOSEC] 40 mg PO BIDAC 15 Days #30 capsule. 06/22/18 [Rx] Allergies/Adverse Reactions: Allergy/AdvReac Type Severity Reaction Status Date / Time fentanyl Allergy Intermediate Swelling Verified 06/22/18 10:10 of Lip/Tongue/Throat acetaminophen [From Vicodin] AdvReac Nausea Verified 06/22/18 10:10 codeine AdvReac Itching Verified 06/22/18 10:10 gabapentin [From Neurontin] AdvReac Nausea Verified 06/22/18 10:10 hydrocodone [From Vicodin] AdvReac Nausea Verified 06/22/18 10:10 morphine AdvReac Itching Verified 06/22/18 10:10 oxycodone [From Percocet] AdvReac Itching Verified 06/22/18 10:10 propoxyphene [From Darvon] AdvReac Itching Verified 06/22/18 10:10 Date of admission: 06/21/18 19:15 Primary care physician: Stefan Navarrete MD Consults: 06/21/18 22:21 Consult to Physician [CONS] Routine Consulting Provider: Laura Gould Reason for Consult: unstable angina; s/p PCI last week Call Completed: No Discharging clinician: Martin Sam Oneal - Constitutional Vitals: Temp Pulse Resp BP Pulse Ox 98.6 F 62 18 146/61 97 06/22/18 16:26 06/22/18 16:26 06/22/18 16:26 06/22/18 16:26 06/22/18 16:26 Exam: General: In no acute distress. Obese Respiratory exam: CTAB. no accessory muscle use, rales, rhonchi, wheezes Cardiovascular exam: RRR, +S1, +S2. no murmur, gallop, rubs. GI/Abdominal exam: mild epigastric tender, obese, Non-distended, soft, no peritoneal signs. Extremities exam: no pedal edema, pulses palpable in b/l lower extremities. no calf tenderness Neurological exam: CN II-XII intact, AO X3, no focal deficits. Skin exam: No skin rash note - Patient Status Disposition: Home, Self-Care Condition: Fair - Discharge Instructions Follow Up With: Stefan Navarrete MD [Primary Care Provider] - 06/30/18 2:00 pm
[2018-06-22] MEDS ORDERED: Insulin LISPRO 300 UNITS/3 ML VIAL SQ SCH (21:00)
[2018-06-23] MEDS ORDERED: Isosorbide MONOnitrate (24 HR) 30 MG TAB.ER.24H PO SCH (09:00)
--- NOTE | 2018-06-23 17:50 | Electrocardiograph Report ---
[address] [address] Test Date: 2018-06-21 Pat Name: Vivek Cheng Department: EXAM14 Room: 2N07 Gender: F Chicken Sexer: : 1955 Requested By: Srini Sanchez Order Number: [id number] Reading MD: Laura Gould Measurements Intervals [place] Rate: 67 P: 29 ND: 143 QRS: 58 QRSD: 72 T: 53 QT: 402 QTc: 425 Interpretive Statements Sinus rhythm Electronically Signed On 06-23-2018 17:49:19 EDT by Laura Gould
== END 2018-06-22 18:45 | disposition home or self-care (01) ==
LOC: EMEROOARM 15:54 → 2NNU 15:54 → SUATTDRO 19:15 → 2NNU 20:02
PROVIDERS: ADMIT Internal Medicine; ATTEND Internal Medicine

== ENCOUNTER 2019-02-28 07:50 | Observation (INO) ==
[2019-02-28] MEDS ORDERED: Aspirin 81 MG TAB.CHEW PO ONE (08:13)
[2019-02-28] MEDS ORDERED: GI Cocktail 40 ML EACH PO ONE (08:13)
[2019-02-28] MEDS ORDERED: Ondansetron 4 MG/2 ML VIAL IVP ONE (08:14)
[2019-02-28 08:21] LABS: Basophils # 0.1 K/mcL (0.0-0.2); Basophils % 0.6 %; Eosinophils # 0.1 K/mcL (0.0-0.6); Eosinophils % 0.8 %; Hematocrit 44.8 % (35.3-44.9); Hemoglobin 15.3 g/dL (11.5-15.4); Immature Granulocytes % 0.4 % (0-4); Lymphocytes # 2.7 K/mcL (0.6-4.6); Lymphocytes % 22.3 %; Mean Corpuscular HGB Conc 34.2 g/dL (31.6-35.5); Mean Corpuscular Volume 93.7 fL (83.0-100.0); Mean Platelet Volume 11.4 fL (9.4-12.4); Monocytes # 0.9 K/mcL (0.0-1.3); Neutrophils # 8.3 K/mcL (1.6-8.9); Platelet Count 256 K/mcL (140-400); Red Blood Count 4.78 M/mcL (3.82-4.97); Red Cell Distribution Width 14.3 % (11.5-14.5); Segmented Neutrophils % 68.9 %; White Blood Count 12.1 K/mcL (4.3-11.1)
[2019-02-28] MEDS ORDERED: Nitroglycerin 0.4 MG TAB.SUBL SL ONE (08:23)
[2019-02-28] MEDS: Nitroglycerin 0.4 MG TAB.SUBL SL PRN ×2 (08:27→08:49)
[2019-02-28 08:51] LABS: BUN/Creatinine Ratio 20 (6-26); Blood Urea Nitrogen 22 mg/dL (8-23); Calcium 11.1 mg/dL (8.6-10.3); Carbon Dioxide 24 mEq/L (23-29); Chloride 106 mEq/L (98-107); Glucose 150 mg/dL (70-105); Lipase 27 Units/L (11-82); Osmolality,Calculated 292 (280-300); Potassium 3.7 mEq/L (3.5-5.1); Sodium 138 mEq/L (136-145); Troponin I < 0.03 ng/mL (< 0.04); eGFR For African Americans > 60 (> 60); eGFR For Non-African Americans 51 (> 60)
[2019-02-28] MEDS ORDERED: Morphine Sulfate 2 MG/ML SYRINGE IVP ONE (08:59)
[2019-02-28] MEDS ORDERED: Metoclopramide 10 MG/2 ML VIAL IVP ONE (09:12)
[2019-02-28] MEDS ORDERED: *HR* Promethazine 25 MG/ML VIAL IVP STA (09:31)
[2019-02-28] MEDS ORDERED: amLODIPine 5 MG TABLET PO STA (10:50)
[2019-02-28] MEDS ORDERED: Naloxone 0.4 MG/ML INJ IVP PRN ×2 (14:35→14:40)
[2019-02-28] MEDS ORDERED: ALPRAZolam 0.5 MG TABLET PO PRN (14:37)
[2019-02-28] MEDS ORDERED: Dextrose Gel 15 GM/37.5 ML TUBE PO PRN ×2 (14:38)
[2019-02-28] MEDS ORDERED: *HR* Dextrose 50 % in Water (Syg) 50 ML SYRINGE IVP PRN (14:38)
[2019-02-28] MEDS ORDERED: D5% in Water 1,000 ML IVC PRN (14:38)
[2019-02-28] MEDS ORDERED: Mag Hydrox/Al Hydrox/Simeth 30 ML UDC PO PRN (14:40)
[2019-02-28] MEDS ORDERED: *HR* Promethazine 25 MG/ML VIAL IVP PRN (14:40)
[2019-02-28] MEDS ORDERED: Acetaminophen 325 MG TABLET PO PRN (14:40)
[2019-02-28] MEDS ORDERED: MOM Conc 10 ML UD.LIQ PO PRN (14:40)
[2019-02-28] MEDS ORDERED: Ondansetron 4 MG/2 ML VIAL IVP PRN (14:40)
[2019-02-28 15:44] LABS: Magnesium 1.5 mg/dL (1.6-2.6)
[2019-02-28] MEDS: Gabapentin 300 MG CAPSULE PO SCH ×2 (15:44→20:02)
[2019-02-28 15:46] LABS: Thyroid Stimulating Hormone 0.705 mcIU/mL (0.340-5.600)
[2019-02-28] MEDS: Insulin LISPRO 300 UNITS/3 ML VIAL SQ SCH ×2 (16:50→21:49)
[2019-02-28] MEDS: ALPRAZolam 0.5 MG TABLET PO PRN (17:28)
[2019-02-28] MEDS ORDERED: *HR* Heparin 5,000 UNIT/ML VIAL SQ SCH (18:00)
[2019-02-28] MEDS: *HR* Heparin 5,000 UNIT/ML VIAL SQ SCH (21:47)
[2019-03-01] MEDS: *HR* Heparin 5,000 UNIT/ML VIAL SQ SCH ×3 (05:16→20:49)
[2019-03-01] MEDS ORDERED: Regadenoson 0.4 MG/5 ML SYRINGE IVP ONE (06:10)
[2019-03-01 06:27] LABS: Basophils # 0.1 K/mcL (0.0-0.2); Basophils % 0.5 %; Eosinophils # 0.1 K/mcL (0.0-0.6); Eosinophils % 1.2 %; Hematocrit 43.9 % (35.3-44.9); Hemoglobin 14.3 g/dL (11.5-15.4); Immature Granulocytes % 0.2 % (0-4); Lymphocytes # 2.7 K/mcL (0.6-4.6); Lymphocytes % 28.6 %; Mean Corpuscular HGB Conc 32.6 g/dL (31.6-35.5); Mean Corpuscular Hemoglobin 32.2 pg (28.0-33.3); Mean Corpuscular Volume 98.9 fL (83.0-100.0); Mean Platelet Volume 11.6 fL (9.4-12.4); Monocytes # 0.7 K/mcL (0.0-1.3); Monocytes % 7.6 %; Neutrophils # 5.7 K/mcL (1.6-8.9); Platelet Count 230 K/mcL (140-400); Red Blood Count 4.44 M/mcL (3.82-4.97); Red Cell Distribution Width 14.5 % (11.5-14.5); Segmented Neutrophils % 61.9 %; White Blood Count 9.3 K/mcL (4.3-11.1)
[2019-03-01 06:53] LABS: Calcium 10.6 mg/dL (8.6-10.3); Chol/HDL Ratio 4.3 (0-4.9); Potassium 3.8 mEq/L (3.5-5.1)
[2019-03-01 08:43] LABS: Estimated Average Glucose 157 mg/dl
[2019-03-01] MEDS ORDERED: Metoprolol XL (24 HR) Succ 25 MG TAB.ER.24H PO SCH (09:00)
[2019-03-01] MEDS ORDERED: Cholecalciferol (D-3) 1,000 UNIT (25MCG) TABLET PO SCH (09:00)
[2019-03-01] MEDS: Insulin LISPRO 300 UNITS/3 ML VIAL SQ SCH ×4 (09:37→21:00)
[2019-03-01] MEDS ORDERED: Perflutren Lipid Microsphere 1.3 ML in 0.9 % Sodium Chloride 8.7 ML IVP ONE (10:05)
[2019-03-01] MEDS: Gabapentin 300 MG CAPSULE PO SCH ×3 (11:09→20:49)
[2019-03-01] MEDS: ALPRAZolam 0.5 MG TABLET PO PRN (11:09)
[2019-03-01] MEDS: amLODIPine 5 MG TABLET PO SCH (11:09)
[2019-03-01] MEDS: Lisinopril 20 MG TABLET PO SCH (11:09)
[2019-03-01] MEDS: Aspirin 81 MG TAB.CHEW PO SCH (11:09)
[2019-03-01] MEDS: Metoprolol XL (24 HR) Succ 50 MG TAB.ER.24H PO SCH (14:09)
[2019-03-01] MEDS: Nicotine 21 MG PATCH.TD24 TD SCH ×2 (16:05→16:06)
[2019-03-01] MEDS: cloNIDine HCl 0.1 MG TABLET PO SCH ×2 (16:06→20:49)
[2019-03-01] MEDS: Isosorbide MONOnitrate (24 HR) 30 MG TAB.ER.24H PO SCH (16:11)
[2019-03-01] MEDS: Magnesium Oxide 400 MG TABLET PO SCH (20:49)
[2019-03-02 02:40] LABS: Calcium 10.5 mg/dL (8.6-10.3); Magnesium 1.9 mg/dL (1.6-2.6)
[2019-03-02] MEDS: *HR* Heparin 5,000 UNIT/ML VIAL SQ SCH (05:48)
[2019-03-02] MEDS: Insulin LISPRO 300 UNITS/3 ML VIAL SQ SCH (08:08)
[2019-03-02] MEDS: Nicotine 21 MG PATCH.TD24 TD SCH (08:38)
[2019-03-02] MEDS: Gabapentin 300 MG CAPSULE PO SCH (08:39)
[2019-03-02] MEDS: Magnesium Oxide 400 MG TABLET PO SCH (08:39)
[2019-03-02] MEDS: Isosorbide MONOnitrate (24 HR) 30 MG TAB.ER.24H PO SCH (08:39)
[2019-03-02] MEDS: cloNIDine HCl 0.1 MG TABLET PO SCH (08:39)
[2019-03-02] MEDS: Lisinopril 20 MG TABLET PO SCH (08:39)
[2019-03-02] MEDS: Aspirin 81 MG TAB.CHEW PO SCH (08:39)
[2019-03-02] MEDS: amLODIPine 5 MG TABLET PO SCH (08:40)
[2019-03-02] MEDS: Metoprolol XL (24 HR) Succ 50 MG TAB.ER.24H PO SCH (08:40)
[2019-03-02] MEDS: ALPRAZolam 0.5 MG TABLET PO PRN (08:47)
[2019-03-02 11:19] VITALS: BP 126/67
== END 2019-03-02 13:01 | disposition home or self-care (01) ==
LOC: EMEROOARM 07:50 → 3BNU 07:50
PROVIDERS: ADMIT Internal Medicine; ATTEND Internal Medicine

== ENCOUNTER 2019-11-02 16:38 | Observation (INO) ==
[2019-11-02] MEDS ORDERED: *HR* Metoprolol 5 MG/5 ML VIAL IVP ONE (17:33)
[2019-11-02 19:06] LABS: Basophils % 0.3 %; Eosinophils # 0.2 K/mcL (0.0-0.6); Eosinophils % 1.1 %; Hematocrit 43.6 % (35.3-44.9); Hemoglobin 14.1 g/dL (11.5-15.4); Immature Granulocytes % 0.5 % (0-4); Lymphocytes # 2.2 K/mcL (0.6-4.6); Mean Corpuscular HGB Conc 32.3 g/dL (31.6-35.5); Mean Corpuscular Hemoglobin 31.1 pg (28.0-33.3); Mean Corpuscular Volume 96.2 fL (83.0-100.0); Mean Platelet Volume 11.1 fL (9.4-12.4); Monocytes % 7.3 %; Neutrophils # 9.7 K/mcL (1.6-8.9); Platelet Count 253 K/mcL (140-400); Red Blood Count 4.53 M/mcL (3.82-4.97); Red Cell Distribution Width 14.4 % (11.5-14.5); Segmented Neutrophils % 73.8 %; White Blood Count 13.2 K/mcL (4.3-11.1)
[2019-11-02 19:10] LABS: INR 0.9; Prothrombin Time 10.3 Seconds (9.4-12.1)
[2019-11-02 19:24] LABS: BUN/Creatinine Ratio 21 (6-26); Blood Urea Nitrogen 21 mg/dL (8-23); Calcium 11.1 mg/dL (8.6-10.3); Carbon Dioxide 25 mEq/L (23-29); Chloride 106 mEq/L (98-107); Glucose 117 mg/dL (70-105); Osmolality,Calculated 292 (280-300); Potassium 4.1 mEq/L (3.5-5.1); Sodium 139 mEq/L (136-145); Troponin I < 0.03 ng/mL (< 0.04); eGFR For African Americans > 60 (> 60); eGFR For Non-African Americans 57 (> 60)
[2019-11-02] MEDS ORDERED: niCARdipine 20 MG/200 ML MLS IVC ONE (19:50)
[2019-11-02] MEDS: niCARdipine 20 MG/200 ML MLS IVC SCH (19:59)
[2019-11-03] MEDS ORDERED: Naloxone 0.4 MG/ML INJ IVP PRN (00:06)
[2019-11-03] MEDS ORDERED: Acetaminophen 325 MG TABLET PO PRN (00:06)
[2019-11-03] MEDS ORDERED: *HR* Promethazine 25 MG/ML VIAL IVP PRN (00:06)
[2019-11-03] MEDS: niCARdipine 20 MG/200 ML MLS IVC SCH ×2 (01:11→05:11)
[2019-11-03] MEDS ORDERED: Gabapentin 300 MG CAPSULE PO PRN (01:13)
[2019-11-03] MEDS ORDERED: Perflutren Lipid Microsphere 1.3 ML in 0.9 % Sodium Chloride 8.7 ML IVP PRN (01:22)
[2019-11-03] MEDS ORDERED: Ipratropium/Albuterol Neb 3 ML IH PRN (01:23)
[2019-11-03 02:40] LABS: INR 0.9; Prothrombin Time 9.9 Seconds (9.4-12.1)
[2019-11-03 02:55] LABS: Alanine Aminotransferase 17 Units/L (7-52); Albumin 4.1 g/dL (3.5-5.7); Albumin/Globulin Ratio 1.3 (1.1-2.2); Alkaline Phosphatase 84 Units/L (34-104); Aspartate Amino Transferase 14 Units/L (13-39); BUN/Creatinine Ratio 22 (6-26); Bilirubin,Total 0.3 mg/dL (0.3-1.0); Blood Urea Nitrogen 18 mg/dL (8-23); Calcium 10.9 mg/dL (8.6-10.3); Carbon Dioxide 23 mEq/L (23-29); Chloride 105 mEq/L (98-107); Chol/HDL Ratio 4.8 (0-4.9); Cholesterol 224 mg/dL (< 200); Globulin 3.1 g/dL (2.4-3.5); Glucose 103 mg/dL (70-105); HDL Cholesterol 47 mg/dL (40-59); LDL Cholesterol,Calculated 142 mg/dL (< 100); Magnesium 1.6 mg/dL (1.6-2.6); Osmolality,Calculated 288 (280-300); Potassium 3.6 mEq/L (3.5-5.1); Sodium 138 mEq/L (136-145); Total Protein 7.2 g/dL (6.4-8.9); Triglycerides 175 mg/dL (< 150); eGFR For African Americans > 60 (> 60); eGFR For Non-African Americans > 60 (> 60)
[2019-11-03] MEDS ORDERED: *HR* HYDROmorphone (PF) 1 MG/ML SYRINGE IVP ONE (05:47)
[2019-11-03] MEDS ORDERED: Ondansetron 4 MG/2 ML VIAL IVP PRN (05:47)
[2019-11-03] MEDS: *HR* Heparin 5,000 UNIT/ML VIAL SQ SCH ×3 (06:05→20:54)
[2019-11-03] MEDS: Metoprolol XL (24 HR) Succ 50 MG TAB.ER.24H PO SCH (07:59)
[2019-11-03] MEDS: Aspirin Enteric Coated 81 MG Tablet PO SCH (07:59)
[2019-11-03] MEDS: cloNIDine HCL 0.1 MG TABLET PO SCH ×3 (07:59→20:54)
[2019-11-03] MEDS: lisinopriL 20 MG TABLET PO SCH (07:59)
[2019-11-03] MEDS: *HR* Glimepiride 2 MG TABLET PO SCH (08:00)
[2019-11-03] MEDS: amLODIPine 5 MG TABLET PO SCH (08:00)
[2019-11-03] MEDS: Cholecalciferol (D-3) 1,000 UNIT (25MCG) TABLET PO SCH (08:00)
[2019-11-03] MEDS: *HR* Metformin 500 MG TABLET PO SCH ×2 (08:00→20:54)
[2019-11-03] MEDS: Isosorbide MONOnitrate (24 HR) 30 MG TAB.ER.24H PO SCH (08:00)
[2019-11-03] MEDS ORDERED: Potassium Phosphate 44 MEQ in 0.9 % Sodium Chloride 250 ML IVPB ONE (08:22)
[2019-11-03] MEDS: ALPRAZolam 0.5 MG TABLET PO PRN (12:22)
[2019-11-04 03:48] LABS: Hematocrit 43.1 % (35.3-44.9); Hemoglobin 13.9 g/dL (11.5-15.4); Mean Corpuscular HGB Conc 32.3 g/dL (31.6-35.5); Mean Corpuscular Hemoglobin 31.1 pg (28.0-33.3); Mean Corpuscular Volume 96.4 fL (83.0-100.0); Mean Platelet Volume 10.7 fL (9.4-12.4); Platelet Count 268 K/mcL (140-400); Red Blood Count 4.47 M/mcL (3.82-4.97); Red Cell Distribution Width 14.6 % (11.5-14.5); White Blood Count 12.6 K/mcL (4.3-11.1)
[2019-11-04 04:04] LABS: BUN/Creatinine Ratio 20 (6-26); Blood Urea Nitrogen 22 mg/dL (8-23); Calcium 10.7 mg/dL (8.6-10.3); Carbon Dioxide 28 mEq/L (23-29); Chloride 105 mEq/L (98-107); Glucose 126 mg/dL (70-105); Magnesium 2.2 mg/dL (1.6-2.6); Osmolality,Calculated 295 (280-300); Potassium 4.1 mEq/L (3.5-5.1); Sodium 140 mEq/L (136-145); eGFR For African Americans > 60 (> 60); eGFR For Non-African Americans 50 (> 60)
[2019-11-04] MEDS: *HR* Heparin 5,000 UNIT/ML VIAL SQ SCH ×3 (05:46→21:01)
[2019-11-04] MEDS: *HR* Metformin 500 MG TABLET PO SCH ×2 (08:12→21:00)
[2019-11-04] MEDS: Isosorbide MONOnitrate (24 HR) 30 MG TAB.ER.24H PO SCH (08:12)
[2019-11-04] MEDS: *HR* Glimepiride 2 MG TABLET PO SCH (08:12)
[2019-11-04] MEDS: Aspirin Enteric Coated 81 MG Tablet PO SCH (08:13)
[2019-11-04] MEDS: Cholecalciferol (D-3) 1,000 UNIT (25MCG) TABLET PO SCH (08:13)
[2019-11-04] MEDS: amLODIPine 5 MG TABLET PO SCH (08:13)
[2019-11-04] MEDS: Metoprolol XL (24 HR) Succ 50 MG TAB.ER.24H PO SCH (08:13)
[2019-11-04] MEDS: lisinopriL 20 MG TABLET PO SCH (08:13)
[2019-11-04] MEDS: hydrALAZINE 25 MG TABLET PO SCH ×3 (08:28→21:01)
[2019-11-04] MEDS: ALPRAZolam 0.5 MG TABLET PO PRN (08:28)
[2019-11-04] MEDS: cloNIDine HCL 0.1 MG TABLET PO SCH ×3 (08:35→21:00)
[2019-11-05 03:06] LABS: Hematocrit 41.3 % (35.3-44.9); Hemoglobin 13.3 g/dL (11.5-15.4); Mean Corpuscular HGB Conc 32.2 g/dL (31.6-35.5); Mean Corpuscular Hemoglobin 30.9 pg (28.0-33.3); Mean Corpuscular Volume 95.8 fL (83.0-100.0); Mean Platelet Volume 11.2 fL (9.4-12.4); Platelet Count 239 K/mcL (140-400); Red Blood Count 4.31 M/mcL (3.82-4.97); Red Cell Distribution Width 14.5 % (11.5-14.5); White Blood Count 11.7 K/mcL (4.3-11.1)
[2019-11-05 03:23] LABS: Calcium 10.6 mg/dL (8.6-10.3); Potassium 4.2 mEq/L (3.5-5.1)
[2019-11-05] MEDS: *HR* Heparin 5,000 UNIT/ML VIAL SQ SCH (05:32)
[2019-11-05 08:35] VITALS: BP 185/55
[2019-11-05] MEDS: amLODIPine 5 MG TABLET PO SCH (08:38)
[2019-11-05] MEDS: Aspirin Enteric Coated 81 MG Tablet PO SCH (08:38)
[2019-11-05] MEDS: lisinopriL 20 MG TABLET PO SCH (08:39)
[2019-11-05] MEDS: Isosorbide MONOnitrate (24 HR) 30 MG TAB.ER.24H PO SCH (08:39)
[2019-11-05] MEDS: *HR* Glimepiride 2 MG TABLET PO SCH (08:39)
[2019-11-05] MEDS: Cholecalciferol (D-3) 1,000 UNIT (25MCG) TABLET PO SCH (08:39)
[2019-11-05] MEDS: Metoprolol XL (24 HR) Succ 50 MG TAB.ER.24H PO SCH (08:39)
[2019-11-05] MEDS: *HR* Metformin 500 MG TABLET PO SCH (08:39)
[2019-11-05] MEDS ORDERED: hydrALAZINE 25 MG TABLET PO SCH (09:00)
== END 2019-11-05 10:40 | disposition home or self-care (01) ==
LOC: 2NNU 16:38 → EMEROOARM 16:38 → SUATTDRO 23:29 → 2NNU 23:40 → 3ANU 11-04 13:44
PROVIDERS: ADMIT Student in an Organized Health Care Education/Training Program; ATTEND Internal Medicine

== ENCOUNTER 2021-09-08 11:01 | Observation (INO) ==
[2021-09-08] MEDS ORDERED: Morphine Sulfate 2 MG/ML SYRINGE IVP STA (11:48)
[2021-09-08] MEDS ORDERED: Ondansetron 4 MG/2 ML VIAL IVP STA (11:49)
[2021-09-08 12:50] LABS: INR 0.9; Prothrombin Time 10.3 Seconds (9.4-12.1)
[2021-09-08 12:53] LABS: Activated Partial Thrombo Time 19.9 Seconds (26.0-36.0)
[2021-09-08] MEDS ORDERED: Iopamidol - 370 500 ML MLS IVP ONE (12:55)
[2021-09-08 13:06] LABS: Troponin I 0.09 ng/mL (< 0.04)
[2021-09-08] MEDS ORDERED: Morphine Sulfate 2 MG/ML SYRINGE IVP ONE ×3 (13:11→17:07)
[2021-09-08 13:18] LABS: Basophils % 0.5 %; Immature Granulocytes % 0.5 % (0-4); Nucleated Red Blood Cells 0.2 /100 WBC (0); Segmented Neutrophils % 70.9 %
[2021-09-08 13:20] LABS: Basophils # 0.1 K/mcL (0.0-0.2); Eosinophils # 0.1 K/mcL (0.0-0.6); Eosinophils % 1.1 %; Hematocrit 39.7 % (35.3-44.9); Hemoglobin 13.1 g/dL (11.5-15.4); Immature Platelets 7.9 % (1.1-6.1); Lymphocytes # 2.6 K/mcL (0.6-4.6); Lymphocytes % 19.6 %; Mean Corpuscular Hemoglobin 32.8 pg (28.0-33.3); Mean Corpuscular Volume 99.3 fL (83.0-100.0); Mean Platelet Volume 11.8 fL (9.4-12.4); Monocytes % 7.4 %; Neutrophils # 9.2 K/mcL (1.6-8.9); Platelet Count 201 K/mcL (140-400)
[2021-09-08 13:25] LABS: Bacteria,Urine Few per hpf (None-Few); Bilirubin,Urine Negative (Negative); Blood,Urine Small (Negative); Clarity,Urine Clear (Clear); Color,Urine Yellow (Yellow); Glucose,Urine (UA) 50 mg/dL (Normal); Hyaline Casts,Urine Few per lpf (None Seen); Ketones,Urine Negative (Negative); Leukocyte Esterase,Urine Negative (Negative); Mucus,Urine Few per lpf (None-Few); Nitrite,Urine Negative (Negative); PH,Urine 6.5 pH Units (5.0-8.0); Protein,Urine >=600 mg/dL (Neg-Trace); Specific Gravity,Urine > 1.030 (1.010-1.025); Squamous Epithelial Cell,Urine Moderate per hpf (None-Few); Urobilinogen,Urine Normal (Normal)
[2021-09-08 13:26] LABS: Platelet Estimate Normal (Normal)
[2021-09-08 14:11] LABS: Alanine Aminotransferase 8 Units/L (7-52); Albumin 2.9 g/dL (3.5-5.7); Albumin/Globulin Ratio 0.9 (1.1-2.2); Alkaline Phosphatase 71 Units/L (34-104); Aspartate Amino Transferase 12 Units/L (13-39); Bilirubin,Indirect 0.3 mg/dL (0.0-1.0); Bilirubin,Total 0.3 mg/dL (0.3-1.0); Globulin 3.1 g/dL (2.4-3.5)
[2021-09-08 14:12] LABS: BUN/Creatinine Ratio 19 (6-26); Blood Urea Nitrogen 20 mg/dL (8-23); Calcium 9.5 mg/dL (8.6-10.3); Carbon Dioxide 19 mEq/L (23-29); Chloride 109 mEq/L (98-107); Glucose 148 mg/dL (70-105); Osmolality,Calculated 295 (280-300); Potassium 3.9 mEq/L (3.5-5.1); Sodium 140 mEq/L (136-145); eGFR For African Americans > 60 (> 60); eGFR For Non-African Americans 52 (> 60)
[2021-09-08] MEDS ORDERED: Aspirin 81 MG TAB.CHEW PO ONE (14:54)
[2021-09-08] MEDS ORDERED: *HR* Heparin 5,000 UNIT/ML VIAL IVP PRN ×2 (14:56)
[2021-09-08] MEDS ORDERED: *HR* Heparin 5,000 UNIT/ML VIAL IVP ONE (14:56)
[2021-09-08] MEDS ORDERED: Heparin 25,000UNIT/250ML 1/2NS 25,000 UNIT/250 ML IV.SOLN IVC SCH (15:00)
[2021-09-08] MEDS ORDERED: Melatonin 3 MG TABLET PO PRN (15:50)
[2021-09-08] MEDS ORDERED: Ondansetron ODT 4 MG TAB.RAPDIS SL PRN (15:50)
[2021-09-08] MEDS ORDERED: Naloxone 0.4 MG/ML INJ IVP PRN (15:50)
[2021-09-08] MEDS ORDERED: Perflutren Lipid Microsphere 1.3 ML in 0.9 % Sodium Chloride 8.7 ML IVP PRN (16:38)
[2021-09-08] MEDS ORDERED: Ringers Solution, Lactated 1,000 ML IVC SCH (16:45)
[2021-09-08] MEDS ORDERED: Dextrose Gel 15 GM/37.5 ML TUBE PO PRN ×2 (16:48)
[2021-09-08] MEDS ORDERED: Aspirin 81 MG TAB.CHEW PO SCH (18:00)
[2021-09-08] MEDS: *HR* Labetalol 20 MG/4 ML SYRINGE IVP PRN (18:07)
[2021-09-08 18:13] LABS: Magnesium 1.4 mg/dL (1.6-2.6); Phosphorous 3.1 mg/dL (2.7-4.5)
[2021-09-08 18:15] LABS: Troponin I 0.03 ng/mL (< 0.04)
[2021-09-08] MEDS ORDERED: 0.9 % Sodium Chloride 1,000 ML IVC SCH (18:45)
[2021-09-08] MEDS: Ondansetron 4 MG/2 ML VIAL IVP PRN (18:53)
[2021-09-08] MEDS ORDERED: Ketorolac 30 MG/ML VIAL IVP ONE (23:45)
[2021-09-09 01:00] LABS: Basophils # 0.1 K/mcL (0.0-0.2); Basophils % 0.4 %; Eosinophils # 0.1 K/mcL (0.0-0.6); Eosinophils % 0.5 %; Hematocrit 38.3 % (35.3-44.9); Hemoglobin 12.4 g/dL (11.5-15.4); Immature Granulocytes % 0.4 % (0-4); Lymphocytes # 2.2 K/mcL (0.6-4.6); Lymphocytes % 17.3 %; Mean Corpuscular HGB Conc 32.4 g/dL (31.6-35.5); Mean Corpuscular Hemoglobin 31.8 pg (28.0-33.3); Mean Corpuscular Volume 98.2 fL (83.0-100.0); Mean Platelet Volume 11.9 fL (9.4-12.4); Monocytes # 0.8 K/mcL (0.0-1.3); Monocytes % 6.1 %; Neutrophils # 9.4 K/mcL (1.6-8.9); Platelet Count 181 K/mcL (140-400); Red Cell Distribution Width 14.1 % (11.5-14.5); Segmented Neutrophils % 75.3 %; White Blood Count 12.5 K/mcL (4.3-11.1)
[2021-09-09 01:18] LABS: BUN/Creatinine Ratio 16 (6-26); Blood Urea Nitrogen 17 mg/dL (8-23); Calcium 9.3 mg/dL (8.6-10.3); Carbon Dioxide 26 mEq/L (23-29); Chloride 109 mEq/L (98-107); Chol/HDL Ratio 6.1 (0-4.9); Cholesterol 264 mg/dL (< 200); Glucose 134 mg/dL (70-105); HDL Cholesterol 43 mg/dL (40-59); LDL Cholesterol,Calculated 172 mg/dL (< 100); Osmolality,Calculated 294 (280-300); Potassium 3.6 mEq/L (3.5-5.1); Sodium 140 mEq/L (136-145); Triglycerides 247 mg/dL (< 150); eGFR For African Americans > 60 (> 60); eGFR For Non-African Americans 52 (> 60)
[2021-09-09 01:23] LABS: Estimated Average Glucose 157 mg/dl; Hemoglobin A1C 7.1 %
[2021-09-09 01:44] LABS: Folate 8.8 ng/mL (3.0-16.0)
[2021-09-09] MEDS: *HR* Labetalol 20 MG/4 ML SYRINGE IVP PRN ×3 (03:31→14:55)
[2021-09-09] MEDS: Ondansetron 4 MG/2 ML VIAL IVP PRN ×2 (03:47→19:45)
[2021-09-09] MEDS ORDERED: Ibuprofen 400 MG TABLET PO PRN (07:51)
[2021-09-09] MEDS: lisinopriL 20 MG TABLET PO SCH (08:19)
[2021-09-09] MEDS: Insulin LISPRO 300 UNITS/3 ML VIAL SUBQ SCH ×3 (08:29→16:38)
[2021-09-09] MEDS ORDERED: Metoprolol XL (24 HR) Succ 50 MG TAB.ER.24H PO SCH ×2 (09:00→11:15)
[2021-09-09] MEDS ORDERED: polyethylene glycoL 3350 17 GM POWD.PACK PO PRN (09:00)
[2021-09-09] MEDS ORDERED: ALPRAZolam 0.5 MG TABLET PO PRN (10:36)
[2021-09-09] MEDS: *HR* Heparin 5,000 UNIT/ML VIAL SQ SCH ×2 (14:38→19:51)
[2021-09-09] MEDS: Aspirin 81 MG TAB.CHEW PO SCH (17:48)
[2021-09-09] MEDS ORDERED: Ketorolac 30 MG/ML VIAL IVP ONE (23:36)
[2021-09-10] MEDS ORDERED: Ketorolac 30 MG/ML VIAL IVP ONE (02:00)
[2021-09-10] MEDS: *HR* Heparin 5,000 UNIT/ML VIAL SQ SCH (05:35)
[2021-09-10 05:57] LABS: Basophils # 0.1 K/mcL (0.0-0.2); Basophils % 0.6 %; Eosinophils # 0.1 K/mcL (0.0-0.6); Eosinophils % 0.9 %; Hematocrit 38.1 % (35.3-44.9); Hemoglobin 12.5 g/dL (11.5-15.4); Immature Granulocytes % 0.4 % (0-4); Lymphocytes # 2.7 K/mcL (0.6-4.6); Lymphocytes % 23.2 %; Mean Corpuscular HGB Conc 32.8 g/dL (31.6-35.5); Mean Corpuscular Hemoglobin 31.9 pg (28.0-33.3); Mean Corpuscular Volume 97.2 fL (83.0-100.0); Mean Platelet Volume 12.1 fL (9.4-12.4); Monocytes # 0.9 K/mcL (0.0-1.3); Monocytes % 7.4 %; Neutrophils # 7.9 K/mcL (1.6-8.9); Platelet Count 275 K/mcL (140-400); Red Blood Count 3.92 M/mcL (3.82-4.97); Segmented Neutrophils % 67.5 %; White Blood Count 11.7 K/mcL (4.3-11.1)
[2021-09-10] MEDS ORDERED: Regadenoson 0.4 MG/5 ML SYRINGE IVP ONE (06:03)
[2021-09-10 06:12] LABS: BUN/Creatinine Ratio 16 (6-26); Blood Urea Nitrogen 17 mg/dL (8-23); Calcium 9.2 mg/dL (8.6-10.3); Carbon Dioxide 27 mEq/L (23-29); Chloride 108 mEq/L (98-107); Glucose 124 mg/dL (70-105); Osmolality,Calculated 293 (280-300); Potassium 3.8 mEq/L (3.5-5.1); Sodium 140 mEq/L (136-145); eGFR For African Americans > 60 (> 60); eGFR For Non-African Americans 51 (> 60)
[2021-09-10] MEDS: Insulin LISPRO 300 UNITS/3 ML VIAL SUBQ SCH ×2 (07:29→11:43)
[2021-09-10] MEDS: *HR* Labetalol 20 MG/4 ML SYRINGE IVP PRN (07:40)
[2021-09-10] MEDS ORDERED: carvediloL 6.25 MG TABLET PO SCH (09:00)
[2021-09-10] MEDS ORDERED: amLODIPine 5 MG TABLET PO SCH (09:00)
[2021-09-10] MEDS: Aspirin 81 MG TAB.CHEW PO SCH (10:03)
[2021-09-10] MEDS: lisinopriL 20 MG TABLET PO SCH (10:03)
[2021-09-10 11:11] VITALS: BP 172/82; PULSE 74; TEMP 98.1; O2SAT 91
[2021-09-11] MEDS ORDERED: Cholecalciferol (D-3) 1,000 UNIT (25MCG) TABLET PO SCH (16:32)
== END 2021-09-10 15:01 | disposition home or self-care (01) ==
LOC: EMEROOARM 11:01 → 3BNU 11:01 → SUATTDRO 16:20 → 3BNU 17:39
PROVIDERS: ADMIT Hospitalist; ATTEND Internal Medicine

== ENCOUNTER 2022-01-10 23:59 | Observation (INO) ==
[2022-01-11] MEDS ORDERED: Iopamidol - 370 500 ML MLS IVP ONE ×2 (01:20→15:34)
[2022-01-11 02:07] LABS: Basophils # 0.1 K/mcL (0.0-0.2); Basophils % 0.8 %; Eosinophils # 0.4 K/mcL (0.0-0.6); Eosinophils % 2.2 %; Hematocrit 38.9 % (35.3-44.9); Hemoglobin 12.7 g/dL (11.5-15.4); Immature Granulocytes % 0.3 % (0-4); Lymphocytes # 3.9 K/mcL (0.6-4.6); Mean Corpuscular HGB Conc 32.6 g/dL (31.6-35.5); Mean Corpuscular Hemoglobin 31.7 pg (28.0-33.3); Mean Platelet Volume 11.7 fL (9.4-12.4); Monocytes # 1.1 K/mcL (0.0-1.3); Monocytes % 7.2 %; Neutrophils # 10.1 K/mcL (1.6-8.9); Platelet Count 278 K/mcL (140-400); Red Blood Count 4.01 M/mcL (3.82-4.97); Red Cell Distribution Width 13.7 % (11.5-14.5); Segmented Neutrophils % 64.5 %; White Blood Count 15.6 K/mcL (4.3-11.1)
[2022-01-11 02:34] LABS: BUN/Creatinine Ratio 19 (6-26); Blood Urea Nitrogen 31 mg/dL (8-23); C-Reactive Protein < 5 mg/L (Less than 10); Calcium 9.6 mg/dL (8.6-10.3); Carbon Dioxide 22 mEq/L (23-29); Chloride 110 mEq/L (98-107); Glucose 118 mg/dL (70-105); Osmolality,Calculated 294 (280-300); Potassium 4.7 mEq/L (3.5-5.1); Sodium 138 mEq/L (136-145)
[2022-01-11] MEDS ORDERED: 0.9 % Sodium Chloride 1,000 ML IVC ONE (02:56)
[2022-01-11] MEDS ORDERED: Piperacillin/Tazobactam 3.375 GM in 0.9 % Sodium Chloride Mini Bag 100 ML IVPB ONE (02:59)
[2022-01-11] MEDS ORDERED: Vancomycin 1,750 MG/517.5 ML IV.SOLN IVPB ONE (03:00)
[2022-01-11] MEDS ORDERED: Morphine Sulfate 2 MG/ML SYRINGE IVP ONE (03:01)
[2022-01-11] MEDS ORDERED: Naloxone 0.4 MG/ML INJ IVP PRN (03:17)
[2022-01-11] MEDS ORDERED: Acetaminophen 325 MG TABLET PO PRN (03:19)
[2022-01-11] MEDS ORDERED: Melatonin 3 MG TABLET PO PRN (03:19)
[2022-01-11] MEDS ORDERED: *HR* HYDROcodone/Acet 5/325 mg TABLET PO PRN (03:19)
[2022-01-11] MEDS ORDERED: Ondansetron 4 MG/2 ML VIAL IVP PRN (03:19)
[2022-01-11] MEDS ORDERED: *HR* OxyCODONE Immed Rel 5 MG TABLET PO PRN (03:19)
[2022-01-11] MEDS ORDERED: D5% in Water 1,000 ML IVC PRN (04:31)
[2022-01-11] MEDS ORDERED: *HR* Dextrose 50 % in Water (Syg) 50 ML SYRINGE IVP PRN (04:31)
[2022-01-11] MEDS ORDERED: *HR* Heparin 5,000 UNIT/ML VIAL IVP ONE (04:31)
[2022-01-11] MEDS ORDERED: Dextrose Gel 15 GM/37.5 ML TUBE PO PRN ×2 (04:31)
[2022-01-11] MEDS ORDERED: *HR* Heparin 5,000 UNIT/ML VIAL IVP PRN ×2 (04:31)
[2022-01-11] MEDS ORDERED: Saliva Stimulant 44.3ml BOTTLE PO PRN (04:42)
[2022-01-11 05:41] LABS: Prothrombin Time 10.7 Seconds (9.4-12.1)
[2022-01-11 05:44] LABS: Activated Partial Thrombo Time 32.6 Seconds (26.0-36.0)
[2022-01-11 05:45] LABS: Heparin anti-factor XA UFH < 0.04 IU/mL (0.30-0.70)
[2022-01-11] MEDS: *HR* OxyCODONE Immed Rel 5 MG TABLET PO PRN ×3 (05:45→21:12)
[2022-01-11] MEDS: Ringers Solution, Lactated 1,000 ML IVC SCH ×3 (05:47→19:21)
[2022-01-11] MEDS: Heparin 25,000UNIT/250ML 1/2NS 25,000 UNIT/250 ML IV.SOLN IVC SCH ×2 (06:05→21:19)
[2022-01-11] MEDS ORDERED: Ipratropium/Albuterol Neb 3 ML IH PRN (06:22)
[2022-01-11 06:34] LABS: Albumin 2.8 g/dL (3.5-5.7); Albumin/Globulin Ratio 1.1 (1.1-2.2); Bilirubin,Total 0.3 mg/dL (0.3-1.0); Globulin 2.6 g/dL (2.4-3.5); Magnesium 1.5 mg/dL (1.6-2.6); Phosphorous 3.8 mg/dL (2.7-4.5); Potassium 3.8 mEq/L (3.5-5.1); Total Protein 5.4 g/dL (6.4-8.9)
[2022-01-11 06:35] LABS: Basophils # 0.1 K/mcL (0.0-0.2); Basophils % 0.6 %; Eosinophils # 0.3 K/mcL (0.0-0.6); Eosinophils % 2.6 %; Hematocrit 37.3 % (35.3-44.9); Hemoglobin 12.1 g/dL (11.5-15.4); Immature Granulocytes % 0.5 % (0-4); Lymphocytes # 3.7 K/mcL (0.6-4.6); Lymphocytes % 27.9 %; Mean Corpuscular HGB Conc 32.4 g/dL (31.6-35.5); Mean Corpuscular Hemoglobin 31.6 pg (28.0-33.3); Mean Corpuscular Volume 97.4 fL (83.0-100.0); Monocytes # 0.9 K/mcL (0.0-1.3); Monocytes % 6.8 %; Neutrophils # 8.2 K/mcL (1.6-8.9); Platelet Count 249 K/mcL (140-400); Red Blood Count 3.83 M/mcL (3.82-4.97); Red Cell Distribution Width 13.9 % (11.5-14.5); Segmented Neutrophils % 61.6 %; White Blood Count 13.3 K/mcL (4.3-11.1)
[2022-01-11 07:07] LABS: Estimated Average Glucose 154 mg/dl
[2022-01-11] MEDS: *HR* HYDROcodone/Acet 5/325 mg TABLET PO PRN (08:22)
[2022-01-11] MEDS: Aspirin Enteric Coated 81 MG Tablet PO SCH (08:24)
[2022-01-11] MEDS: carvediloL 6.25 MG TABLET PO SCH ×2 (08:24→16:29)
[2022-01-11] MEDS: Nicotine 21 MG PATCH.TD24 TD SCH (08:24)
[2022-01-11] MEDS: amLODIPine 5 MG TABLET PO SCH (08:24)
[2022-01-11] MEDS: Lactobacillus 1 EACH CAP.SPRINK PO SCH ×2 (08:24→21:12)
[2022-01-11] MEDS: ALPRAZolam 0.5 MG TABLET PO PRN (11:34)
[2022-01-11] MEDS ORDERED: Piperacillin/Tazobactam 3.375 GM in 0.9 % Sodium Chloride Mini Bag 100 ML IVPB SCH (12:00)
[2022-01-11] MEDS: Magnesium Oxide 400 MG TABLET PO SCH (13:37)
[2022-01-11] MEDS: Insulin LISPRO 300 UNITS/3 ML VIAL SUBQ SCH ×2 (13:40→19:09)
[2022-01-11 17:08] LABS: Bacteria,Urine Few per hpf (None-Few); Bilirubin,Urine Negative (Negative); Blood,Urine Small (Negative); Clarity,Urine Clear (Clear); Color,Urine Light-Yellow (Yellow); Glucose,Urine (UA) Normal (Normal); Ketones,Urine Negative (Negative); Leukocyte Esterase,Urine Negative (Negative); Mucus,Urine Few per lpf (None-Few); Nitrite,Urine Negative (Negative); PH,Urine 6.5 pH Units (5.0-8.0); Protein,Urine >=600 mg/dL (Neg-Trace); RBC,Urine 0-3 per hpf (0-3); Squamous Epithelial Cell,Urine Few per hpf (None-Few); Urobilinogen,Urine Normal (Normal); WBC,Urine 0-3 per hpf (0-3)
[2022-01-11 17:19] LABS: Chloride,Urine 80 mEq/L; Creatinine,Urine 111 mg/dL; Microalbumin,Urine > 1350 mg/L; Protein/Creatinine Ratio,Urine 6.59 mg/mg (0.00-0.20); Sodium, Urine 79.8 mEq/L
[2022-01-12] MEDS: Insulin LISPRO 300 UNITS/3 ML VIAL SUBQ SCH ×3 (00:56→12:03)
[2022-01-12 01:05] LABS: Basophils # 0.1 K/mcL (0.0-0.2); Basophils % 0.6 %; Eosinophils # 0.3 K/mcL (0.0-0.6); Eosinophils % 2.7 %; Hematocrit 33.5 % (35.3-44.9); Hemoglobin 10.8 g/dL (11.5-15.4); Immature Granulocytes % 0.3 % (0-4); Lymphocytes # 3.1 K/mcL (0.6-4.6); Lymphocytes % 25.2 %; Mean Corpuscular HGB Conc 32.2 g/dL (31.6-35.5); Mean Corpuscular Hemoglobin 31.4 pg (28.0-33.3); Mean Corpuscular Volume 97.4 fL (83.0-100.0); Mean Platelet Volume 11.4 fL (9.4-12.4); Monocytes # 0.8 K/mcL (0.0-1.3); Monocytes % 6.9 %; Neutrophils # 7.8 K/mcL (1.6-8.9); Platelet Count 222 K/mcL (140-400); Red Blood Count 3.44 M/mcL (3.82-4.97); Red Cell Distribution Width 14.1 % (11.5-14.5); Segmented Neutrophils % 64.3 %; White Blood Count 12.2 K/mcL (4.3-11.1)
[2022-01-12] MEDS: *HR* OxyCODONE Immed Rel 5 MG TABLET PO PRN ×4 (01:18→15:12)
[2022-01-12 01:25] LABS: Calcium 8.7 mg/dL (8.6-10.3); Magnesium 1.5 mg/dL (1.6-2.6); Potassium 4.2 mEq/L (3.5-5.1)
[2022-01-12] MEDS ORDERED: Vancomycin 1,250 MG/262.5 ML IV.SOLN IVPB SCH (04:00)
[2022-01-12] MEDS: Ringers Solution, Lactated 1,000 ML IVC SCH (04:42)
[2022-01-12] MEDS ORDERED: 0.9 % Sodium Chloride 1,000 ML IVC SCH ×2 (08:00→11:15)
[2022-01-12] MEDS: carvediloL 6.25 MG TABLET PO SCH (08:26)
[2022-01-12] MEDS: Magnesium Oxide 400 MG TABLET PO SCH (08:26)
[2022-01-12] MEDS: Lactobacillus 1 EACH CAP.SPRINK PO SCH (08:26)
[2022-01-12] MEDS: Aspirin Enteric Coated 81 MG Tablet PO SCH (08:26)
[2022-01-12] MEDS: Nicotine 21 MG PATCH.TD24 TD SCH (08:26)
[2022-01-12] MEDS: amLODIPine 5 MG TABLET PO SCH (08:26)
[2022-01-12] MEDS: ALPRAZolam 0.5 MG TABLET PO PRN (08:35)
[2022-01-12] MEDS: Heparin 25,000UNIT/250ML 1/2NS 25,000 UNIT/250 ML IV.SOLN IVC SCH (12:00)
[2022-01-12 15:08] VITALS: BP 168/48; PULSE 71; TEMP 98.2; O2SAT 93
[2022-01-12] MEDS: *HR* HYDROcodone/Acet 5/325 mg TABLET PO PRN (17:54)
== END 2022-01-12 18:11 | disposition home or self-care (01) ==
LOC: EMEROOARM 23:59 → 2NENU 23:59 → SUATTDRO 01-11 03:31 → 2NENU 01-11 04:39
PROVIDERS: ADMIT Internal Medicine; ATTEND Internal Medicine